=== PATIENT | male | born 1950 | race Caucasian/White ===

== ENCOUNTER 2020-06-16 07:55 | Outpatient (CLI) | payer OTHER, SELFPAY ==
[2020-06-16 08:08] LABS: Base Excess ABG -1.5 mmol/L (0-2); HCO3 ABG 22.5 mmol/L (23-29); Oxygen Content ABG 20.8 %vol (16.0-22.0); Oxygen Saturation ABG 97.1 % (95-97); Oxyhemoglobin 96.6 % (94-100); PCO2 ABG 35.9 mmHg (35-45); PO2 ABG 93.6 mmHg (75-85); Total Hemoglobin 15.3 g/dL; pH ABG 7.42 (7.35-7.45)
[2020-06-16 08:10] LABS: Device ROOM AIR; Modified Allen's Test Pass; Site Drawn RIGHT RADIAL
--- NOTE | 2020-06-16 12:50 | WPDPFTINT ---
PFT Interpretation PFT Interpretation: DOS: 06/16/2019 REQUESTING: Khang Brooke REASON FOR TESTING: shortness of breath PULMONARY FUNCTION TESTS Results are reliable and reproducible. Spirometry: FEV1 is 108%, 3.34 L. FVC is 107%. The FEV1/FVC ratio is 100%. RED13-45% is 99%. All values are normal. There is no change after bronchodilator administration. Lung volumes: TLC 105%. Slow vital capacity 107%. Residual volume 96%. RV/TLC is 37%, no air trapping. Airway resistance is 131%, mildly increased. Diffusion: DLCO 99%, normal. Flow volume loop: normal IMPRESSION: Normal spirometry, lung volumes, and diffusion; airway resistance is minimally increased; no change with bronchodilator. No explanation for the patient's shortness of breath based on this PFT. If clinically indicated and the patient does not have ischemia, consider methacholine challenge. Gianna Oliva MD
== END 2020-06-16 07:56 | disposition home or self-care (01) ==
PROVIDERS: PCP Family Medicine; Visit Provider Specialist
DX: R06.02 Shortness of breath (principal)
CPT/HCPCS: 36600; 82805; 94060; 94726; 94729

== ENCOUNTER 2020-07-12 08:58 | Outpatient (CLI) | payer OTHER, SELFPAY ==
--- NOTE | ~2020-07-12 | US_ITS ---
EXAMINATION: US arterial ankle brachial ind DATE: 07/12/2020 09:29 INDICATION: Claudication TECHNIQUE: Segmental pressures and plethysmographic and Doppler waveforms of the brachial and lower e xtremity arteries were obtained. COMPARISON: None. FINDINGS: Right and left brachial artery pressures of 135 mm Hg and 117 mm Hg, respectively, are concordant (no rmal difference <= 30 mmHg). The right ankle-brachial index (BHARATHI) is 1.07 (normal >= 0.9-1.0). The right great toe-brachial index (TBI) is not available (normal >= 0.65). Arterial Doppler waveforms are biphasic. The left BHARATHI is 1.04. The left TBI is not available. Arterial Doppler waveforms are biphasic. IMPRESSION: Normal BHARATHI bilaterally Reviewed, dictated and finalized at Location A. Reviewed, dictated and finalized at location B. 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
== END 2020-07-12 08:59 | disposition home or self-care (01) ==
PROVIDERS: PCP Family Medicine; Visit Provider Family Medicine
DX: I73.9 Peripheral vascular disease, unspecified (principal)
CPT/HCPCS: 93922

== ENCOUNTER 2020-08-03 08:41 | Outpatient (CLI) | payer OTHER, SELFPAY ==
--- NOTE | ~2020-08-03 | XR_ITS ---
EXAMINATION: XR lumbar spine 2-3V DATE: 08/03/2020 09:06 INDICATION: Bilateral leg pain. TECHNIQUE: 3 views of lumbar spine were obtained. COMPARISON: None. FINDINGS: There is 4 degrees levocurvature of thoracolumbar spine. Vertebral body heights and interve rtebral disc heights are normal. There are endplate osteophytes at multiple levels. 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 IMPRESSION: 1. Mild lumbar spondylosis. Reviewed, dictated and finalized at location A. IC RELATIONS COUNSELOR IMPRESSION: 1. Mild lumbar spondylosis.
== END 2020-08-03 08:42 | disposition home or self-care (01) ==
LOC: CHSIMG 08:44
PROVIDERS: PCP Family Medicine; Visit Provider Family Medicine
DX: M79.604 Pain in right leg (principal); M79.605 Pain in left leg
CPT/HCPCS: 72100

== ENCOUNTER 2021-02-18 08:27 | Outpatient (CLI) | payer OTHER, SELFPAY ==
--- NOTE | ~2021-02-18 | XR_ITS ---
XR chest 2V 02/18/2021 08:47 Indication: Acute bronchitis. Cough. Procedure: PA and lateral views of the chest Comparison: No prior studies for comparison. Findings: Status post median sternotomy for CABG. Heart size normal. No focal air space disease, pulm onary edema, pleural effusion or suspected pneumothorax. Impression: 1: No acute cardiopulmonary disease. Reviewed, dictated and finalized at location A. Impression: 1: No acute cardiopulmonary disease.
== END 2021-02-18 08:28 | disposition home or self-care (01) ==
LOC: CHSIMG 08:31
PROVIDERS: PCP Family Medicine; Visit Provider Physician Assistant
DX: J20.9 Acute bronchitis, unspecified (principal)
CPT/HCPCS: 71046

== ENCOUNTER 2021-06-04 10:17 | Outpatient (CLI) | payer OTHER, SELFPAY ==
[2021-06-04 11:37] LABS: Thyroid Stimulating Hormone 3.04 uIU/mL (0.36-3.74)
== END 2021-06-04 10:18 | disposition home or self-care (01) ==
LOC: CHSLAB 10:19
PROVIDERS: PCP Family Medicine; Visit Provider Internal Medicine Cardiovascular Disease
DX: R06.02 Shortness of breath (principal); E03.9 Hypothyroidism, unspecified
CPT/HCPCS: 36415; 84443

== ENCOUNTER 2021-06-17 12:01 | Outpatient (CLI) | payer OTHER, SELFPAY | END 2021-06-17 12:02 | disposition home or self-care (01) | LOC: CHSIMG 12:06 | PROVIDERS: PCP Family Medicine; Visit Provider Internal Medicine Cardiovascular Disease | DX: R06.02 Shortness of breath (principal) | CPT/HCPCS: 93306 ==

== ENCOUNTER 2021-07-05 10:18 | Outpatient (CLI) | payer OTHER, SELFPAY ==
--- NOTE | ~2021-07-05 | XR_ITS ---
EXAMINATION: XR chest 2V DATE: 07/05/2021 10:31 INDICATION: Dyspnea on exertion TECHNIQUE: PA and lateral views of the chest were obtained. COMPARISON: Chest radiograph dated 02/18/2021 FINDINGS: Mild biapical pleural-parenchymal scarring. No other airspace opacities, pulmonary edema, pleural eff usion or pneumothorax. The cardiomediastinal silhouette is normal. Median sternotomy wires, ostial ma rkers and mediastinal surgical clips consistent with prior coronary artery bypass grafting. IMPRESSION: 1. No acute cardiopulmonary disease. Reviewed, dictated and finalized at location A. CTOR DIVERSITY
== END 2021-07-05 10:19 | disposition home or self-care (01) ==
LOC: CHSIMG 10:21
PROVIDERS: PCP Family Medicine; Visit Provider Physician Assistant
DX: R06.00 Dyspnea, unspecified (principal)
CPT/HCPCS: 71046

== ENCOUNTER 2024-11-26 12:57 | Emergency (ER) | payer MEDICARE, OTHER, SELFPAY ==
--- NOTE | ~2024-11-26 | CT_ITS ---
EXAMINATION: CT brain wo con DATE: 11/26/2024 14:05 INDICATION: Head injury TECHNIQUE: Computed tomography (CT) of the head was performed without intravenous contrast. Sagittal and coronal reconstructions were performed. The mA was adjusted according to patient size. Iterative reconstruction technique was employed. The dose-length product was 681.00 mGy-cm. COMPARISON: None FINDINGS: No fracture. No acute intracranial hemorrhage, acute infarction or abnormal extra axial fluid collect ion. There is mild scattered white matter hypoattenuation consistent with chronic small vessel ischem ic disease. Ventricles are normal and symmetric. No mass/mass effect. Changes of bilateral intraocul ar lens replacement. The orbits, paranasal sinuses and mastoid air cells are normal. IMPRESSION: 1. No fracture or acute intracranial process. Reviewed, dictated and finalized at location A.
[2024-11-26 12:57] VITALS: BP 147/85; PULSE 69; RESP 18; TEMP 33.4; O2SAT 97
--- OUTSIDE RECORDS SUMMARY | 2024-11-26 13:06 | XMS_ITS | Encounter Summary ---
Author Name [facility] Organization [facility] [place] Address [address] [place] [address] Care Team Providers Care Lawnmower Mechanic Name Role Phone CHRISTOS GAMAAH Primary Care Provider ALEX Child Unavailable Unavailable Insurance Providers: All historical and current Section Date Range: From patient's date of to the date document was created. This section includes the names of all active insurance providers for the patient. Insurance Provider Type of Coverage Plan Name Start of Policy Coverage End of Policy Coverage Group Number Member ID Insurance Provider's Telephone Number Policy Higginbotham's Name Patient's Relationship to Policy Higginbotham [employer] [facility] (WNR) MEDICARE ADVANTAGE [facility] (WNR) May 28, 2023 [id number] CHRISTOPHE MONROE PATIENT [facility] ([id number]) PRESCRIPT ION [facility] Nov 25, 2014 [id number] GILBERT MONROE PATIENT [facility] (STIL 11/25/20) PREFERRED PROVIDER ORGANIZAT ION [place] Nov 25, 2020 [id number] GILBERT MONROE PATIENT [facility] ([place] 11/25/20) PREFERRED PROVIDER [place]GANIZAT [place] Nov 25, 2020 [id number] GILBERT MONROE PATIENT [employer] ([employer]) PRESCRIPT [place]ON [place] May 28, 2010 [id number] [phone] GILBERT MONROE PATIENT Selected Encounter This section includes the information on record at [place] for the Encounter. Date/Time Encounter Type Encounter Description Reason Provider Source Feb 22, 2024 08:00 AM OFFICE O/P EST LOW 20 MIN PODIATRY ICD-10-CM M21.41 Flat foot [pes planus] (acquired), right foot STACY JAMA [facility] Encounter Template Text not used by [place] Assessments - Encounter Diagnoses This section includes the primary and secondary diagnoses documented for the Encounter. Date/Time Primary/Secondary Diagnosis Diagnosis Name Provider Source Feb 22, 2024 08:14 AM PRIMARY Flat foot [pes planus] (acquired), right foot STACY JAMA [facility] Feb 22, 2024 08:14 AM SECONDARY Flat foot [pes planus] (acquired), left foot STACY JAMA [facility] Plan of Treatment: Future Appointments (+ 6 months) and Future Tests (+/- 45 days) The Plan of Treatment section includes future care activities for the patient from all [place] treatmentfacilities. This section includes future appointments and future orders which are active, pending or scheduled. Future Appointments This section includes appointments that were scheduled to occur 6 months from the date of the Encounter, up to a maximum of 20 appointments. The data comes from all [place] treatment facilities. Appointment Date/Time Appointment Type Appointme nt Facility Name May 13, 2024 08:15 AM AMBULATORY - MEDICINE [facility] May 16, 2024 09:15 AM AMBULATORY - MEDICINE [facility] Social History: Smoking Status (Most current) and Tobacco Use (All prior to encounter date) This section includes the most current, and the historical, smoking and tobacco- related health factors from the [place] facility where the Encounter took place. Current Smoking Status This section includes the most current smoking, or tobacco-related health factor, from the [place] facility where the Encounter took place. Date/Time Current Smoking Status Comment Enrrique ramirez Nov 06, 2023 08:15 AM [place]-TOBACCO QUIT 15 YRS OR MORE [facility] Tobacco Use History This section includes a history of the smoking, or tobacco-related health factors, that were collected on or before the date of the Encounter. The data comes from the [place] facility where the Encounter took place. Date/Time Smoking Status/Tobacco Use Comment F acility Nov 06, 2023 08:15 AM VA-TOBACCO QUIT 15 YRS OR MORE [facility] October 10, 2022 08:30 AM VA-TOBACCO NEVER USED [facility] Jul 08, 2021 09:30 AM VA-TOBACCO FORMER USER [facility] Jul 08, 2021 09:30 AM VA-TOBACCO QUIT 15 YRS OR MORE [facility] Encounter Notes: All associated encounter notes This section contains the clinical notes associated to the Encounter. Date/Time Encounter Note(s) Provider Source Feb 22, 2024 07:52 AM PODIATRY NOTE: LOCAL TITLE: PODIATRY NOTE STANDARD TITLE: PODIATRY NOTE DATE OF NOTE: FEB 22, 2024@07:52 ENTRY DATE: FEB 22, 2024@07:52:46 AUTHOR: STACY JAMA COSIGNER: URGENCY: STATUS: COMPLETED S: 73 year old nondiabetic male presents to clinic for evaluation of his current Rx MATERIAL CONTROL ASSOCIATE. His current Rx MATERIAL CONTROL ASSOCIATE are from 2021, and have been refurbished in the past. He denies any current foot pain or problems b/l. Pt. denies any changes to his medical history since his last clinic visit on 02-17-22. Pt. endorses hx of severe spinal stenosis L3 causing radiculopathy symptoms b/l LE (but not extending to the feet per pt) tx with steroid injections with significant relief per pt. Pt. was trialed on Rx Neurontin to address radiculopathy symptoms but developed vertigo SE, and had to d/c per pt. Pt. denies any recent history of trauma, redness, or swelling b/l. He denies numbness, burning, or tingling sensation b/l feet/ ankles. Pt. denies tobacco use. 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 Pt. denies any other foot problems b/l. 71 in [180.3 cm] (04/23/2023 08:28) 189.1 lb [85.77 kg] (12/04/2023 09:46) No changes to objective exam findings from last visit. O: Pt. ambulated into clinic wearing NB tennis shoes without assistance in NAD. He is alert and oriented x 3. Vasc: DP and PT pulses 2/4 b/l. CFT < 4 seconds x 10 digits. No edema or varicosities noted b/l. Absent digital hair growth noted b/l. Neuro: Protective sensation was intact to all sites tested per the 5.07 semmes jay monofilament b/l. Derm: Skin temp, texture, and turgor WNL b/l. Interdigital webspaces dry, clean, and intact b/l. No skin keratomas, breaks, or ulcers noted b/l. All toenails are present, normal, and trimmed per pt. No erythema, edema, or calor noted b/l. Ortho: Upon WB pes planus foot type noted b/l. + Equinus noted b/l. No pain noted on palpation of either foot or ankle b/l. No ecchymosis or bone pain noted b/l. No gross foot abnormalities noted b/l. Upon evaluation, pt's current MATERIAL CONTROL ASSOCIATE topcovers and crepe extrinsic RF posting require replacement --- but the remainder of the Rx MATERIAL CONTROL ASSOCIATE are in good condition to maintain stability and control. A: 1. Pes planus b/l P: 1. Exam 2. Consult prosthetics for refurbishment of his Rx MATERIAL CONTROL ASSOCIATE --- see consult for Rx details 3. Inspect feet daily for changes 4. RTC one year per order for Rx MATERIAL CONTROL ASSOCIATE eval per pt. request Low risk per A directive 1122 Pt. told any complications or new pedal complaints to go to the ER or triage clinic. /fer/ STACY JAMA DPM Staff Physician - Podiatry Signed: 02/22/2024 08:21 STACY JAMA [facility]
--- OUTSIDE RECORDS SUMMARY | 2024-11-26 13:06 | XMS_ITS | Continuity of Care Document ---
Author Organization [facility] Address [address] [facility] [address] [place] [address] Phone Care Team Providers Care Wire Basket Maker Name Role Phone Tunde Fernando MD, FACS Unavailable Unavailab le Advance Directives Directive Yes / No Effective Date File Name No Information Encounters Encounter Description Practice Location Reason(s) For Visit Diagnoses Date Provider Providers Copied on Encounter [facility], [address], [place], [place], [id number], [place] tel:[phone] [address] [place] Professional No Information [address]. [address], [address], [place], [place], [id number], [place]. tel:[phone] Family History Family Member Type Diagnosis Age At Onset No Information Payers Payer name Insurance type Covered democrat ID Authoriza tion(s) No Information Social History Type Description Quantity Date Captured Comments Sex Male Smoking Status No Information Chief Complaint And Reason For Visit No Information Reason For Referral Reason For Referral No Information History Of Present Illness Encounter Date Complaint History Of Prese nt Illness No Information Functional Status Date Functional Assessmen t No Information Instructions Date Instruction Additional Infor mation No Information Assessments Type Assessment Date No Information Patient Care Teams Name Effective Dates (start - stop) Status Members No Information
--- OUTSIDE RECORDS SUMMARY | 2024-11-26 13:06 | XMS_ITS | Clinical Summary ---
Author Organization [facility] Address [address] [place] [address] Care Team Providers Care Pelt Salter Name Role Phone Toni Stout MD Primary Care Provider [phone] Source Comments [facility],non-owned Affiliates and Associated Physician Practices is amultiple site organization consisting of ambulatory clinics and hospital sitesin [place], [place], [place] and [place]. This disclosure is being madepursuant to the Care Everywhere program and may not contain all information available regarding this patient. Last updated 18.[facility] Allergies No known active allergies Medications * Be aware that medications may not be up to date on this document. Alwaysverify current medications with the patient. LEVOTHYROXINE SODIUM PO Active METOPROLOL SUCCINATE ER PO Acti ve TAMSULOSIN HCL PO Ac tive Aspirin (ASPIR-81 PO) Active POTASSIUM BICARBONATE PO Activ e ROSUVASTATIN CALCIUM PO Active Active Problems Problem Noted Date Diagnosed Date Hyperlipidemia PTSD (post-traumatic stress disorder) Family History Medical History Relation Name Comments CAD (Coronary Artery Disease) Brother Cancer Brother prostate Cancer Mother breast Relation Name Status Comments Brother Mother Social History Tobacco Use Types Packs/Day Years Used Date Smoking Tobacco: Never Sex and Gender Information Value Date Recorded Sex Assigned at Not on file 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 Gender Identity Not on file Sexual Orientation Not on file Last Filed Vital Signs Vital Sign Reading Time Taken Comments Blood Pressure 118/60 10/21/2017 3:24 PM CDT Pulse 72 10/21/2017 3:24 PM CDT Temperature 37.3 C (99.1 F) 10/21/2017 3:24 PM CDT Respiratory Rate - - Oxygen Saturation - - Inhaled Oxygen Concentration - - Weight 93.9 kg (207 lb) 10/21/2017 3:24 PM CDT Height 182.9 cm (6') 10/21/2017 3:24 PM CDT Body Mass Index 28.07 10/21/2017 3:24 PM CDT Plan of Treatment Health Maintenance Due Date Last Done Comments HEPATITIS C SCREENING 06/30/1966 DTAP/TDAP/TD VACCINES (1 - Tdap) 1967 PNEUMOCOCCAL VACCINE 50+ (1 of 1 - PCV) 1998 ZOSTER VACCINE (1 of 2) 1998 SCREENING FOR DIABETES 10/21/2017 Respiratory Syncytial Virus (RSV) Vaccine Pt: or over 60 yrs (1 - 1-dose 75+ series) 2023 COVID-19 VACCINE ( - 2023-2 5 season) 2024 DEPRESSION SCREENING 05/28/2024 INFLUENZA VACCINE (Season Ended) 2025 HEPATITIS B VACCINE Aged Out No longe r eligible based on patient's age to complete this topic HIB VACCINE Aged Out No longer eligi ble based on patient's age to complete this topic HPV VACCINE Aged Out No longer eligi ble based on patient's age to complete this topic MENINGOCOCCAL (Group B) VACC INE SHARED DECISION-MAKING Aged Out No longer eligibl e based on patient's age to complete this topic MENINGOCOCCAL GROUPS A/C/Y/W VACCINE Aged Out No longer eligible b ased on patient's age to complete this topic Insurance [employer] Care Teams Pelt Salter Relationship Specialty Start Date End Date Toni Stout MD NPI: [id number] [place] [id number] PCP - General Family Medicine 10/21/17
--- OUTSIDE RECORDS SUMMARY | 2024-11-26 13:06 | XMS_ITS | Encounter Summary ---
Author Name [facility] [place] [facility] [place] Address [address] [place] [address] Care Team Providers Care Housekeeping Associate Name Role Phone LANETTE JOSE Primary Care Provider ALEX Child Unavailable Unavailable [...] Name Patient's Relationship to Policy [place] AETNA [facility] (WNR) MEDICARE ADVANTAGE [facility] (WN) May 28, 2023 [id number] CHRISTOPHE MONROE PATIENT CAREMARK ([id number]) PRESCRIPT ION [facility] Nov 25, 2014 [id number] GILBERT MONROE PATIENT [facility] (STIL 11/25/20) PREFERRED PROVIDER ORGANIZAT ION ([place]O) [place] Nov 25, 2020 [id number] GILBERT MONROE PATIENT [facility] (STIL 11/25/20) PREFERRED PROVIDER ORGANIZAT ION (PPO[place] Nov 25, 2020 [id number] GILBERT MONROE PATIENT [facility] ([facility]) PRESCRIPT ION [place] May 28, 2010 [id number] [phone] GILBERT MONROE PATIENT Selected Encounter This section includes the information on record at [place] for the Encounter. Date/Time Encounter Type Encounter Description Reason Provider Source May 13, 2024 08:15 AM OFFICE O/P EST MOD 30 MIN PRIMARY CARE/MEDICINE ICD-10-CM E78.5 Hyperlipidemia, unspecified JOSE GAMA IHGiovani Encounter Template Text not used by [place] Assessments - Encounter Diagnoses This section includes the primary and secondary diagnoses documented for the Encounter. Date/Time Primary/Secondary Diagnosis Diagnosis Name Provider Source May 13, 2024 01:04 PM PRIMARY Hyperlipidemia, unspecified [facility] May 13, 2024 01:04 PM SECONDARY Allergic rhinitis, unspecified [facility] May 13, 2024 01:04 PM SECONDARY Athscl heart disease of [place] coronary artery w/o ang pctrs [facility] May 13, 2024 01:04 PM SECONDARY Basal cell carcinoma of skin, unspecified [facility] May 13, 2024 01:04 PM SECONDARY Benign prostatic hyperplasia with lower urinary tract symp [facility] May 13, 2024 01:04 PM SECONDARY Contact with and exposure to other hazardous substances [facility] May 13, 2024 01:04 PM SECONDARY Dizziness and giddiness [facility] May 13, 2024 01:04 PM SECONDARY Elevated prostate specific antigen [PSA] [facility] May 13, 2024 01:04 PM SECONDARY Encounter for immunization POWER,SARA Pimentel [facility] May 13, 2024 01:04 PM SECONDARY Essential (primary) hypertension [facility] May 13, 2024 01:04 PM SECONDARY Fall (on) (from) other stairs and steps, initial encounter [facility] May 13, 2024 01:04 PM SECONDARY Hypothyroidism, unspecified DISSTIFFANY GIMENEZ [facility] May 13, 2024 01:04 PM SECONDARY Pain in leg, unspecified TIFFANY GUTIERREZ [facility] May 13, 2024 01:04 PM SECONDARY Post-traumatic stress disorder, unspecified TIFFANY GUTIERREZ [facility] May 13, 2024 01:04 PM SECONDARY Prediabetes TIFFANY GUTIERREZ [facility] May 13, 2024 01:04 PM SECONDARY Presence of aortocoronary bypass graft TIFFANY GUTIERREZ [facility] May 13, 2024 01:04 PM SECONDARY Shortness of breath TIFFANY GUTIERREZ [facility] May 13, 2024 01:04 PM SECONDARY Sleep apnea, unspecified TIFFANY GUTIERREZ [facility] May 13, 2024 01:04 PM SECONDARY Spinal stenosis, site unspecified [facility] Plan of Treatment: Future Appointments (+ 6 months) and Future Tests (+/- 45 days) The Plan of Treatment section includes future care activities for the patient from all [facility]. This section includes future appointments and future orders which are active, pending or scheduled. Future Appointments This section includes appointments that were scheduled to occur 6 months from the date of the Encounter, up to a maximum of 20 appointments. The data comes from all [facility] Appointment Date/Time Appointment Type Appointme nt Facility Name May 16, 2024 09:15 AM AMBULATORY - MEDICINE [facility] Nov 10, 2024 08:15 AM AMBULATORY - MEDICINE [facility] Lab Results: +/- 30 days of the encounter This section includes the Chemistry and Hematology Lab Results on record with [place] for the patient. Radiology Reports and Pathology Reports are provided separately, in subsequent sections. Lab Results This section contains the Chemistry/Hematology Results that were resulted 30 days before or 30 daysafter the date of the Encounter. Date/Time Source Result Type Result - Unit Interpretation Reference Range Specimen Type Comment May 13, 2024 10:08 AM [facility] HIV COMBO FOURTH GENERATION (STL) SERUM Speci men Type: SERUM No comment entered. Ordering Provider: SAMY GUTIERREZ Report Released Date/Time: May 13, 2024 09:16 AM Reporting Lab: [facility] [address] [facility] [address] Performing Lab: [facility] [address] [facility] [address] HIV COMBO FOURTH GENERATION (STL) Nonreactive Nonreactive May 13, 2024 10:08 AM [facility] PROST. SPECIFIC AG.(PB-STL) SERUM Specimen Ty pe: SERUM Comment: The listed sex of this patient may not be a typical indication for this test. Therefore, reference ranges or interpretive criteria listed may not be valid. Clinical correlation suggested. Ordering Provider: SAMY GUTIERREZ Report Released Date/Time: May 13, 2024 09:16 AM Reporting Lab: [facility] [address] [place] [address] Performing Lab: [facility] [address] [place] [address] PROST. SPECIFIC AG.(PB-STL) 2.172 ng/mL 0.000-4.000 May 13, 2024 10:08 AM [facility] VITAMIN D, 25-HYDROXY SERUM Specimen Type: SE RUM Comment: The listed sex of this patient may not be a typical indication for this test. Therefore, reference ranges or interpretive criteria listed may not be valid. Clinical correlation suggested. Ordering Provider: SAMY GUTIERREZ Report Released Date/Time: May 13, 2024 09:16 AM Reporting Lab: [facility] [address] [facility] [address] Performing Lab: [facility] [address] [place] [address] VITAMIN D, 25-HYDROXY 28.8 ng/mL L 30-96 May 13, 2024 10:08 AM [facility] B12 SERUM Specimen Type: SERUM Comment: The listed sex of this patient may not be a typical indication for this test. Therefore, reference ranges or interpretive criteria listed may not be valid. Clinical correlation suggested. Ordering Provider: SAMY GUTIERREZ Report Released Date/Time: May 13, 2024 09:16 AM Reporting Lab: [facility] [facility] [address] Performing Lab: [facility] [address] [facility] [address] B12 1778 pg/mL H 213-816 May 13, 2024 10:08 AM [facility] TSH W/ REFLEX FT4 (STL) PLASMA Specimen Type: PLASMA No comment entered. Ordering Provider: SAMY GUTIERREZ Report Released Date/Time: May 13, 2024 09:16 AM Reporting Lab: [facility] [facility] [address] Performing Lab: [facility] [address] [facility] [address] TSH 3.870 u[IU]/mL 0.470-5.000 May 13, 2024 10:08 AM [facility] HGA1C BLOOD Specimen Type: BLOOD No comment entered. Ordering Provider: SAMY GUTIERREZ Report Released Date/Time: May 13, 2024 09:16 AM Reporting Lab: [facility] [facility] [address] Performing Lab: [facility] [facility] [address] HGA1C 5.6 4.0-6.0 May 13, 2024 10:08 AM [facility] COMPREHENSIVE METABOLIC PANEL PLASMA Specimen Type: PLASMA Comment: No hemolysis noted. Ordering Provider: SAMY GUTIERREZ Report Released Date/Time: May 13, 2024 09:16 AM Reporting Lab: [facility] [facility] [address] Performing Lab: [facility] [facility] [address] CREATININE 1.23 mg/dL 0.70-1.30 UREA NITROGEN 17.8 mg/dL 9.0-25.0 GLUCOSE 109 mg/dL H 72-99 SODIUM 139 meq/L 136-145 POTASSIUM 5.5 meq/L H 3.5-5.0 CHLORIDE 106 meq/L 98-107 CARBON DIOXIDE 26 meq/L 22-31 CALCIUM 9.9 mg/dL 8.4-10.4 PROTEIN 6.7 g/dL 6.0-8.6 ALBUMIN 4.5 g/dL 3.4-5.0 TOTAL BILIRUBIN 0.6 mg/dL 0.2-1.2 ALKALINE PHOSPHATASE 84 U/L 40-150 AST/SGOT 20 U/L 5-34 ALT/SGPT 23 U/L 8-40 EGFR (CKD-EPI 2020) 61.22 >60 May 13, 2024 10:08 AM [facility] LIPID PANEL (STL) PLASMA Specimen Type: PLASM A Comment: No hemolysis noted. Ordering Provider: SAMY GUTIERREZ Report Released Date/Time: May 13, 2024 09:16 AM Reporting Lab: [facility] [facility] [address] Performing Lab: [facility] [facility] [address] CHOLESTEROL 173 mg/dL 0-200 TRIGLYCERIDE 92 mg/dL 0-150 CALCULATED LDL 113 mg/dL See Interp HDL(New) 42 mg/dL > 40 May 13, 2024 10:08 AM [facility] CBC BLOOD Specimen Type: BLOOD No comment entered. Ordering Provider: SAMY GUTIERREZ Report Released Date/Time: May 13, 2024 09:16 AM Reporting Lab: [facility] [facility] [address] Performing Lab: [facility] [facility] [address] WBC 5.2 10*3/uL 3.6-11.2 RBC 4.37 10*6/uL 4.10-5.70 HGB 15.1 g/dL 13.1-16.8 HCT 42.8 38.2-48.4 MCV 97.9 fL 80.0-100.0 MCH 34.6 pg H 27.0-34.0 MCHC 35.3 g/dL 33.0-36.0 PLT 191 10*3/uL 150-400 MPV 9.3 fL 7.5-11.2 RDW 11.2 L 11.8-15.1 LYMPHOCYTES, AUTO % 28 MONOCYTES, AUTO % 8 NEUTROPHILS, AUTO % 61 EOSINOPHILS, AUTO % 3 BASOPHILS, AUTO % 0 LYMPHOCYTES, ABSOLUTE 1.42 10*3/uL 0.77- 4.50 MONOCYTES, ABSOLUTE 0.39 10*3/uL 0.19-0. 80 NEUTROPHILS, ABSOLUTE 3.15 10*3/uL 2.10- 8.00 EOSINOPHILS, ABSOLUTE 0.17 10*3/uL 0.00- 0.60 BASOPHILS, ABSOLUTE 0.02 10*3/uL 0.00-0. 20 Vital Signs: All taken on the encounter date This section contains inpatient and outpatient Vital Signs collected on the date of the Encounter. Date/Time Temperature Pulse Blood Pressure Respiratory Rate SP02 Pain Height Weight Body Mass Index Source May 13, 2024 08:26 AM 98.1 66 135/74 16 96 2 203 28 [facility] Immunizations: All administered on the encounter date This section contains immunizations associated to the Encounter. Immunization Series Date Issued Administered By Site Reaction Lot Number CVX Code Drug Dental Manager Comment(s) Source PNEUMOCOCCAL POLYSACCHARID E PPV23 May 13, 2024 SARA SCHNEIDER RIGHT DELTO ID [id number] [employer] ADMINISTERE D AT [facility] TDAP May 13, 2024 SARA SCHNEIDER LEFT DELTO ID [id number] [employer] ADMINISTERE D AT [facility] Social History: Smoking Status (Most current) and Tobacco Use (All prior to encounter date) This section includes the most current, and the historical, smoking and tobacco- related health factors from the [facility] where the Encounter took place. Current Smoking Status This section includes the most current smoking, or tobacco-related health factor, from the [place] facility where the Encounter took place. Date/Time Current Smoking Status Comment Facil james Nov 06, 2023 08:15 AM [place]-TOBACCO QUIT 15 YRS OR MORE [facility] Tobacco Use History This section includes a history of the smoking, or tobacco-related health factors, that were collected on or before the date of the Encounter. The data comes from the [place] facility where the Encounter took place. Date/Time Smoking Status/Tobacco Use Comment F acility Nov 06, 2023 08:15 AM [place]-TO[place]AC[place] QUIT 15 YRS OR MORE [facility] October 10, 2022 08:30 AM [place]-TOBACCO NEVER USED [facility] Jul 08, 2021 09:30 AM [place]-TOBACCO FORMER USER [facility] Jul 08, 2021 09:30 AM [place]-TO[place]ACCO QUIT 15 YRS OR MORE [facility] Encounter Notes: All associated encounter notes This section contains the clinical notes associated to the Encounter. Date/Time Encounter Note(s) Provider Source May 13, 2024 03:58 PM PHYSICIAN LETTERS: LOCAL TITLE: TEST RESULT GENERAL LETTER STL STANDARD TITLE: PHYSICIAN LETTERS DATE OF NOTE: MAY 13, 2024@15:58 ENTRY DATE: MAY 13, 2024@15:58:54 AUTHOR: SAMY GUTIERREZ EXP COSIGNER: URGENCY: STATUS: COMPLETED [facility] [address] [place] [address] MAY 13, 2024 JEAN CLAUDE MONROE [address], [place] [address] Dear Jean Claude Monroe, I would like to update you on your recent test results. LIPID PROFILE - High cholesterol and triglycerides (lipids) are risk factors for heart disease. Your cholesterol should fall between 140 and 200, and your triglycerides levels should be less than or equal to 150. HDL is the good cholesterol and should ideally be greater than 40. LDL is the bad cholesterol and optimal levels should be less than 100 (near optimal is between 100 and 129). TRIGLYCERIDE 92 mg/dL 05/13/2024 10:08 CHOLESTEROL 173 mg/dL 05/13/2024 10:08 HDL(New) 42 mg/dL 05/13/2024 10:08 CALCULATED LDL 113 mg/dL 05/13/2024 10:08 No DIRECT LDL EO data found These readings are within normal limits. HEMOGLOBIN A1C - Gives us information about your diabetes (sugar or glucose) control over the past 3 months. Your target is to keep your A1C below 7 %. HGA1C 5.6 % 05/13/2024 10:08 These results are abnormal. You have prediabetes. This number is around what you normally run. Continue your current diet and exercise plan. CBC - A complete blood count (CBC) gives important information about the kinds and numbers of cells in the blood, especially red blood cells, white blood cells, and platelets. HGB 15.1 g/dL 05/13/2024 10:08 HEMATOCRIT 42.8 % (05/13/24 10:08) PLT 191 10*3/uL 05/13/2024 10:08 WHITE BLOOD COUNT 5.2 10*3/uL (05/13/24 10:08) These readings are within normal limits. B12 - Helps maintain healthy nerve cells, red blood cells, and is also needed to make DNA. B12 1778 H pg/mL 05/13/2024 10:08 These results are abnormal. Your B12 is elevated. Please stop the additonal B12 supplement (Cyanocobalamin) as discussed on the phone. CHEM 7 - This is important information about the current status of your kidneys, liver, and electrolyte and acid/base balance as well as of your blood sugar and blood proteins. SODIUM 139 mEq/L 05/13/2024 10:08 POTASSIUM 5.5 H mEq/L 05/13/2024 10:08 CHLORIDE 106 mEq/L 05/13/2024 10:08 UREA NITROGEN 17.8 mg/dL 05/13/2024 10:08 CREATININE 1.23 mg/dL 05/13/2024 10:08 CALCIUM 9.9 mg/dL 05/13/2024 10:08 CARBON DIOXIDE 26 mEq/L 05/13/2024 10:08 GLUCOSE 109 H mg/dL 05/13/2024 10:08 EGFR (CKD-EPI 2020) 61.22 05/13/2024 10:08 These results are abnormal. Your Potassium is elevated. Please come in and recheck the lab in 2 weeks as discussed on the phone. LIVER FUNCTION PANEL - These are tests for liver function: PROTEIN 6.7 g/dL 05/13/2024 10:08 ALBUMIN 4.5 g/dL 05/13/2024 10:08 TOTAL BILIRUBIN 0.6 mg/dL 05/13/2024 10:08 ALKALINE PHOSPHATASE 84 U/L 05/13/2024 10:08 AST/SGOT 20 U/L 05/13/2024 10:08 ALT/SGPT 23 U/L 05/13/2024 10:08 These readings are within normal limits. PSA - Prostate-specific antigen is a protein produced by cells of the prostate gland. The PSA test measures the level of PSA in the blood. PSA PROST. SPECIFIC AG.(PB-STL) 2.172 ng/mL 05/13/2024 10:08 These readings are within normal limits. TSH - Thyroid-stimulating hormone (also known as TSH or thyrotropin) is a peptide hormone synthesized and secreted by thyrotrope cells in the anterior pituitary gland, which regulates the endocrine function of the thyroid gland. TSH TSH 3.870 uIU/mL 05/13/2024 10:08 These readings are within normal limits. VITAMIN D - Helps promote the proper utilization of calcium and phosphorus, thereby producing proper bone maintenance. VITAMIN D, 25-HYDROXY 28.8 L ng/mL 05/13/2024 10:08 These readings are within normal limits. HIV - Human immunodeficiency virus is a condition in humans in which the immune system begins to fail, leading to life-threatening opportunistic infections. HIV FOURTH GENERATION: Collection DT Specimen Test Name Result Units Ref Range 05/13/2024 10:08 SERUM HIV Combo Nonreactive S/CO Ref: Nonreactive These readings are within normal limits. FUTURE APPOINTMENTS: 05/16/2024 09:15 [facility] 11/10/2024 08:15 [facility]-PACT E BOAT WRAPPER RESIDENT 1 12/02/2024 10:00 [facility] 02/20/2025 08:00 [facility] Sincerely, SAMY GUTIERREZ, DNP, RESEARCH FOOD TECHNOLOGIST-C, WASH TUB MACHINE OPERATOR NURSE PRACTITIONER RESIDENT JEAN CLAUDE MONROE THOM[facility] May 13, 2024 08:37 AM PRIMARY CARE NOTE: LOCAL TITLE: PRIMARY CARE PROVIDER ESTABLISHED VISIT ST STANDARD TITLE: PRIMARY CARE NOTE DATE OF NOTE: MAY 13, 2024@08:37 ENTRY DATE: MAY 13, 2024@08:37:46 AUTHOR: SAMY GUTIERREZ EXP COSIGNER: JOSE GAMA URGENCY: STATUS: COMPLETED PRIMARY CARE PROVIDER ESTABLISHED VISIT ST Has ADDENDA ESTABLISHED PATIENT [id number]: REASON FOR VISIT/CHIEF COMPLAINT: Regularly scheduled PCP follow up HPI: 73 y/o WM in the office for care and management of chronic conditions Hosp/sx/ED/UC visits: Current concerns: NON-VA PROVIDERS: Prvt Broth Mixer Falls: None 1. CAD: Controlled/stable, no acute concerns. -(2020) s/p LHC w/ patent grafts, (2013) s/p CABG x5 -(2021) TTE - EF 55-60%, trace MR -NTG PRN -asa 81mg daily, atorvastatin 40mg daily, ranolazine 500mg bid -F/B PRVT & [facility] CARDs 2. Chronic MORA: Controlled/stable, no acute concerns. -Taking Albuterol PRN -Sometimes coughs, then gags, usually when he forgets the inhaler -Happens more when hot, but very minimally 3. HLD, LDL goal <100; at goal. TRIGLYCERIDE 129 mg/dL 11/06/2023 09:27 CHOLESTEROL 149 mg/dL 11/06/2023 09:27 HDL(New) 46 mg/dL 11/06/2023 09:27 CALCULATED LDL 77 mg/dL 11/06/2023 09:27 -Atorvastatin 40 mg (denies myalgias) -ASCVD: 28.9% -Trying diet and exercise, fell off the wagon recently, but trying to get back to normal 4. HTN, goal BP < 140/90; Controlled/stable, no acute concerns. -Amlodipine 2.5mg daily -Trying diet and exercise, fell off the wagon recently, but trying to get back to normal 5. prediabetes HGA1C 5.7 % 04/23/2023 09:54 HGA1C 5.8 % 10/14/2021 09:55 HGA1C 6.0 % 07/08/2021 13:12 6. hypothyroidism: Controlled/stable, no acute concerns. -Last TSH: (03/2023) WNL -Levothyroxine 25 MCG. 7. AR: not at goal. -Taking Loratadine, IPRATROPIUM BR 0.03% nasal spray TID -Changing airfilter Q3 months 8. VINAY: Controlled/stable, no acute concerns. -Last Sleep Study - (2021)- mild sleep apnea, AHI<5; Did not qualify for CPAP. -No c/o insominia or sleep disturbance -No spousal c/o snoring 9. BPH/Elevated PSA: Controlled/stable, no acute concerns. -PSA: PROST. SPECIFIC AG.(PB-STL) 2.751 ng/mL 04/23/2023 09:54 -Stopped Tamsulosin, taking Flax seed -C/O latchkey incontinence intermittently at times 10. PTSD -Controlled/stable, no acute concerns. 11. lower limb pain/spinal stenosis: ongoing but stable. - Uses compression socks, Lumbar YANLEI (minimal effect), PT/CHIRO (declines), custom orthotic inserts (helps tremendously) -Lidocaine patch prn, diclofenac gel prn -(2021) BHARATHI -WNL 12. hx of falls: Controlled/stable, no acute concerns -No falls, but catching himself before he falls 6X in 6 months -Intermittent cane use 13. vertigo/L esotropia: Controlled/stable, no acute concerns. -Usually takes his time doing things, resolves fairly quickly -Prism glasses prn, AD (cane) 14. BCC of skin: ongoing. -[facility], last visit November 18 -Endorses no new lesions SOURCE(S) OF HISTORY: Patient [facility] records reviewed and summarized PAST MEDICAL HISTORY: 1) Posttraumatic stress disorder 2) Hyperlipidemia (SCT [id number]) 3) History of polyp of colon 4) CAD - Coronary Artery Disease (SCT 63952115) 5) Hypothyroidism 6) Spinal stenosis 7) Pain in lower limb 8) History of coronary artery bypass grafting comment: CABG X5 2013 9) Dyspnea on exertion 10) Benign prostatic hyperplasia 11) Allergic rhinitis 12) Prediabetes ([facility] [id number]) 13) Vertigo 14) HTN - Hypertension ([facility] [id number]) 15) Basal cell carcinoma of skin 16) Fall 17) Raised prostate specific antigen 18) Sleep apnea 19) Exposure to potentially hazardous substance FAMILY HISTORY: SOCIAL HISTORY: NICOTINE: No data available ETOH: ILLICIT DRUGS: 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 Handwritten corrections, additions and/or deletions were made to the list. Corrected Outpatient Medication List was provided to the patient/caregiver. Active Outpatient Medications (including Supplies): Active Outpatient Medications Status 1) ALBUTEROL 90MCG (CFC-F) 200D ORAL INHL INHALE 2 PUFFS ORAL ACTIVE INHALATION FOUR TIMES A DAY NEEDED SHAKE WELL. RINSE MOUTHPIECE FREQUENTLY TO PREVENT CLOGGING. USE 20 MINUTES PRIOR TO EXERTION. Indication: FOR EXERCISE-INDUCED BRONCHOSPASM 2) AMLODIPINE BESYLATE 2.5MG TAB TAKE ONE TABLET BY MOUTH ONCE ACTIVE A DAY FOR HEART/BLOOD PRESSURE 3) ATORVASTATIN CALCIUM 80MG TAB TAKE ONE-HALF TABLET BY MOUTH ACTIVE EVERY EVENING TO LOWER CHOLESTEROL 4) IPRATROPIUM BR 0.03% NASAL SPRAY USE 2 SPRAYS INTO ACTIVE NOSTRIL(S) THREE TIMES A DAY FOR ALLERGIES/NASAL SYMPTOMS. 5) LEVOTHYROXINE NA (SYNTHROID) 25MCG TAB TAKE ONE TABLET BY ACTIVE MOUTH EVERY MORNING BEFORE A MEAL FOR THYROID. TAKE 30 MINUTES BEFORE FOOD. TAKE SEPARATELY FROM ALL OTHER MEDICATIONS. 6) LIDOCAINE 5% PATCH APPLY 1 PATCH TO SKIN SITE ONCE A DAY ACTIVE APPLY PATCH AND PRESS FIRMLY FOR 10-15 SECONDS. KEEP ON FOR 12 HOURS THEN REMOVE PATCH FOR 12 HOURS. Indication: FOR LOCAL ANESTHESIA 7) LORATADINE 10MG TAB TAKE ONE TABLET BY MOUTH ONCE A DAY ON ACTIVE EMPTY STOMACH Indication: FOR ALLERGIC RHINITIS 8) NITROGLYCERIN 0.4MG SL TAB DISSOLVE ONE TABLET UNDER THE ACTIVE TONGUE ONE-TIME NEEDED FOR CHEST PAIN; IF NO IMPROVEMENT AFTER FIRST DOSE CALL 9-1-1. MAY TAKE 2 ADDITIONAL DOSES, 5 MINUTES APART 9) RANOLAZINE 500MG SA TAB TAKE ONE TABLET BY MOUTH TWICE A DAY ACTIVE FOR HEART. *SWALLOW WHOLE- DO NOT CRUSH,BREAK OR CHEW* Active Non-VA Medications Status 1) Non-VA ASCORBIC ACID 500MG TAB 500MG BY MOUTH ONCE A DAY ACTIVE 2) Non-VA CYANOCOBALAMIN 1000MCG TAB 2000MCG BY MOUTH ONCE A ACTIVE DAY 3) Non-VA MAGNESIUM GLUCONATE 500MG TAB 500MG BY MOUTH ACTIVE 4) Non-VA MULTIVITAMIN/MINERAL ANTIOXIDANT CAP/TAB 1 CAP/TAB BY ACTIVE MOUTH ONCE A DAY 13 Total Medications DATA REVIEW: HGA1C 5.7 % 04/23/2023 09:54 Lipid Panel: TRIGLYCERIDE 129 mg/dL 11/06/2023 09:27 CHOLESTEROL 149 mg/dL 11/06/2023 09:27 HDL(New) 46 mg/dL 11/06/2023 09:27 CALCULATED LDL 77 mg/dL 11/06/2023 09:27 CMP: SODIUM 140 mEq/L 11/06/2023 09:27 POTASSIUM 4.3 mEq/L 11/06/2023 09:27 CHLORIDE 105 mEq/L 11/06/2023 09:27 UREA NITROGEN 10.6 mg/dL 11/06/2023 09:27 CREATININE 1.07 mg/dL 11/06/2023 09:27 CALCIUM 9.1 mg/dL 11/06/2023 09:27 PROTEIN 7.5 g/dL 04/23/2023 09:54 ALBUMIN 4.7 g/dL 11/06/2023 09:27 ALKALINE PHOSPHATASE 95 U/L 04/23/2023 09:54 ALT/SGPT 25 U/L 04/23/2023 09:54 AST/SGOT 18 U/L 04/23/2023 09:54 TOTAL BILIRUBIN 0.7 mg/dL 04/23/2023 09:54 CARBON DIOXIDE 26 mEq/L 11/06/2023 09:27 GLUCOSE 111 H mg/dL 11/06/2023 09:27 EGFR (CKD-EPI 2020) 72.37 11/06/2023 09:27 CBC: WBC 6.1 10*3/uL 04/23/2023 09:54 RBC 4.44 10*6/uL 04/23/2023 09:54 HGB 15.0 g/dL 04/23/2023 09:54 HCT 43.2 % 04/23/2023 09:54 MCV 97.3 fL 04/23/2023 09:54 MCH 33.8 pg 04/23/2023 09:54 MCHC 34.7 g/dL 04/23/2023 09:54 RDW 11.5 L % 04/23/2023 09:54 PLT 183 10*3/uL 04/23/2023 09:54 MPV 9.8 fL 04/23/2023 09:54 NEUTROPHILS, AUTO % 61 % 04/23/2023 09:54 LYMPHOCYTES, AUTO % 29 % 04/23/2023 09:54 MONOCYTES, AUTO % 7 % 04/23/2023 09:54 EOSINOPHILS, AUTO % 2 % 04/23/2023 09:54 BASOPHILS, AUTO % 0 % 04/23/2023 09:54 NEUTROPHILS, ABSOLUTE 3.72 10*3/uL 04/23/2023 09:54 LYMPHOCYTES, ABSOLUTE 1.73 10*3/uL 04/23/2023 09:54 MONOCYTES, ABSOLUTE 0.44 10*3/uL 04/23/2023 09:54 EOSINOPHILS, ABSOLUTE 0.14 10*3/uL 04/23/2023 09:54 BASOPHILS, ABSOLUTE 0.02 10*3/uL 04/23/2023 09:54 PSA: PROST. SPECIFIC AG.(PB-STL) 2.751 ng/mL 04/23/2023 09:54 Result: Acceptable Follow-up Action: Re check prior to next visit. Data results reviewed with patient and/or caregiver. REVIEW OF SYSTEMS: All systems reviewed and otherwise negative unless noted in HPI REVIEW OF SYSTEMS: General: Denies fever or chills, weight loss or weight gain. Eyes: Denies blurry or double vision. Ears, Nose, Mouth, Throat: Denies hearing loss, nasal drainage or sore throat. Denies dizziness. Endo: Denies heat or cold intolerance, polydipsia, polyuria, or polyphagia. Cardiovascular: Denies CP, palpitations, or dizziness. Respiratory: Denies cough or SOB. ABD/GI: Denies abd pain, N/V/D, constipation. Musculoskeletal/Extremities : Denies pain. Denies edema. /PARAKEET RAISER: Denies frequency, hesitancy, urgency, or hematuria. Psych: Denies depression, anxiety, insomnia, SI/HI. Neuro: Denies DOBBS, tremors, neuropathy, or seizures. Skin: Denies rashes, skin lesions. VITALS Temperature: 98.1 F [36.7 C] (05/13/2024 08:26) BP: 135/74 (05/13/2024 08:26) Pulse: 66 (05/13/2024 08:26) Resp: 16 (05/13/2024 08:26) PulsOx: 96% (05/13/2024 08:26) Pain: 2 (05/13/2024 08:26) Weight: Measurement DT WEIGHT LB(KG)[BMI] 05/13/2024 08:26 203(92.08)[28*] 12/04/2023 09:46 189.1(85.77)[26] 11/06/2023 08:29 187.7(85.14)[26] PHYSICAL EXAM Gen: Patient pleasant, appears adequately nourished, appropriately dressed, well-groomed HEENT: Normocephalic; PERRLA, EOM, sclera white, cornea clear, conjunctiva pink. TM pearly rodrigez, + light reflex. Throat without erythema or exudate Neck: supple, no lymphadenopathy, no thyroidmegaly, or carotid bruits Lungs: Lungs CTA, normal RR, no increased WOB noted Heart: RRR S1S2-m/r/g Abdomen: soft, non-tender, no hepatosplenomegaly, BS pos X4 Neuro: A+OX4, no focal deficits, ambulates with steady gait : deferred Psych: good affect, denies si/hi Ext: no edema, + pedal pulses Skin: warm and dry, normal color for race, no rashes or skin lesions. ASSESSMENT/PLAN: LABS: CBC, CMP, Lipid, A1C, TSH, Vit D, B12, PSA, HIV 1. CAD: Controlled/stable, no acute concerns. -(2020) s/p LHC w/ patent grafts, (2013) s/p CABG x5 -(2021) TTE - EF 55-60%, trace MR -Continue NTG PRN -Cotninue asa 81mg daily, atorvastatin 40mg daily, ranolazine 500mg bid -F/B PRVT & [facility] CARDs -Continue current management, F/U in office if needed 2. Chronic MORA: Controlled/stable, no acute concerns. -Cotninue Albuterol PRN -Sometimes coughs, then gags, usually when he forgets the inhaler -Happens more when hot, but very minimally -Continue current management, F/U in office if needed 3. HLD, LDL goal <100; at goal. TRIGLYCERIDE 129 mg/dL 11/06/2023 09:27 CHOLESTEROL 149 mg/dL 11/06/2023 09:27 HDL(New) 46 mg/dL 11/06/2023 09:27 CALCULATED LDL 77 mg/dL 11/06/2023 09:27 -Continue Atorvastatin 40 mg (denies myalgias) -ASCVD: 28.9% -Trying diet and exercise, fell off the wagon recently, but trying to get back to normal -Discussed getting back on his diet and exercise 150 mins per week 4. HTN, goal BP < 140/90; Controlled/stable, no acute concerns. -Cotninue Amlodipine 2.5mg daily -Trying diet and exercise, fell off the wagon recently, but trying to get back to normal -Discussed getting back on his diet and exercise 150 mins per week 5. prediabetes HGA1C 5.7 % 04/23/2023 09:54 HGA1C 5.8 % 10/14/2021 09:55 HGA1C 6.0 % 07/08/2021 13:12 -A1C ordered -Discussed getting back on his diet and exercise 150 mins per week 6. hypothyroidism: Controlled/stable, no acute concerns. -Last TSH: (03/2023) WNL -Levothyroxine 25 MCG. 7. AR: not at goal. -Continue Loratadine, IPRATROPIUM BR 0.03% nasal spray TID -Changing airfilter Q3 months --Discussed use of allergen air filter 8. VINAY: Controlled/stable, no acute concerns. -Last Sleep Study - (2021)- mild sleep apnea, AHI<5; Did not qualify for CPAP. -No c/o insominia or sleep disturbance -No spousal c/o snoring -Continue current management, F/U in office if needed 9. BPH/Elevated PSA: Controlled/stable, no acute concerns. -PSA: PROST. SPECIFIC AG.(PB-STL) 2.751 ng/mL 04/23/2023 09:54 -Stopped Tamsulosin, taking Flax seed -C/O latchkey incontinence intermittently at times --Discussed toileting hygiene, using the restroom prior to leaving a location regardless of need -Decline adult diaper usage -Continue current management, F/U in office if needed 10. PTSD -Controlled/stable, no acute concerns -Pt declines MH support, states it is controlled on his own -Pt usually speaks w/ son 11. lower limb pain/spinal stenosis: ongoing but stable. - Uses compression socks, Lumbar YANELI (minimal effect), PT/CHIRO (declines), custom orthotic inserts (helps tremendously) -Lidocaine patch prn, diclofenac gel prn -(2021) BHARATHI -WNL -Continue current management, F/U in office if needed 12. hx of falls: Controlled/stable, no acute concerns -No falls, but catching himself before he falls 6X in 6 months -Intermittent cane use --Discussed using cane all the time and use of hand rails if available 13. vertigo/L esotropia: Controlled/stable, no acute concerns. -Usually takes his time doing things, resolves fairly quickly -Prism glasses prn, AD (cane) -Continue current management, F/U in office if needed 14. BCC of skin: ongoing. -[facility], last visit November 18 -Endorses no new lesions -F/U w/ Derm as scheduled -Use of sunscreen and long sleeves PREVENTION & SCREENING: Obtained Flu, COVID, PNA, TDaP Colonoscopy: 2022, due 2027 AAA: Date Procedure CPT Status Case # 06/05/2022 ABD AORTA ([facility]) [id number] Verified 88 NORMAL CALIBER ABDOMINAL AORTA WITH NO FOCAL ANEURYSM No Impressions found LDCT: N/A PSA: Collection DT Specimen Test Name Result Units Ref Range 04/23/2023 09:54 SERUM PSA 2.751 ng/mL 0.000 - 4.000 07/08/2021 12:34 SERUM PSA 3.436 ng/mL 0.000 - 4.000 09/21/2009 10:32 SERUM PSA 1.078 ng/ml 0 - 4 Immunizations ADMINISTERED Immunization Series Date Facility Reaction Info COVID-19 ([employer]), MRNA, LNP-S, * 1 04/11/2022 [facility]* <C> COVID-19 ([facility]), MRNA, LNP-S, * 3 05/09/2021 [facility] COVID-19 ([employer]), MRNA, LNP-S, * 2 [facility] COVID-19 ([facility]), MRNA, LNP-S, * 1 07/16/2020 [facility] COVID-19 ([facility]), MRNA, LNP-S, * 3 10/14/2021 [facility] <C> COVID-19 ([facility]), MRNA, LNP-S, * 1 04/23/2023 [facility] INFLUENZA, HIGH-DOSE, QUADRIVALE* C 02/23/2023 [facility] INFLUENZA, HIGH-DOSE, TRIVALENT,* C 02/22/2024 [facility]* INFLUENZA, UNSPECIFIED FORMULATI* 02/02/2022 [facility]* INFLUENZA, UNSPECIFIED FORMULATI* 02/10/2021 [facility]* INFLUENZA, UNSPECIFIED FORMULATI* 05/28/2015 [facility] * INFLUENZA, UNSPECIFIED FORMULATI* 04/05/2012 [facility] INFLUENZA, UNSPECIFIED FORMULATI* Private P* NOVEL [id number], ALL FOR* Visiting * PNEUMOCOCCAL POLYSACCHARIDE PPV23 2013 PCP TDAP Private P* ZOSTER RECOMBINANT 2 06/04/2020 [facility]* <C> ZOSTER RECOMBINANT 1 03/26/2020 [facility]* <C> CONTRAINDICATED No data available REFUSED ======= Immunization Date Facility Info PNEUMOCOCCAL CONJUGATE, UNSPECIF* 04/23/2023 [facility]* <I> TDAP 11/06/2023 [facility]* <I> TDAP 04/23/2023 [facility]* <I> <C> See the Detailed Immunizations Health Summary Component[DIM] for Comments <I> See the Detailed Immunizations Health Summary Component[DIM] for Additional Information * Value is truncated; see the Detailed Immunizations Health Summary Component[DIM] for complete text RETURN TO CLINIC: Return to Clinic order placed SUMMARY STATEMENT: Plan of care has been discussed with including expected therapeutic benefits and potential side effects of prescribed medication and treatments. Hector verbalizes understanding and is in agreement with the plan of care. Patient was instructed to keep all scheduled appointments and contact medical geneticist for any additional problems. THE SUPERVISING PHYSICIAN FOR THIS PATIENT ENCOUNTER IS KENAN Ramirez Sexual Orientation - CP,L,N,P,PH,PS,S,U: The patient thinks of their sexual orientation as: Straight or Heterosexual HIV Screening (Routine): Patient has given verbal consent for HIV antibody testing, and written educational materials have been provided. An order for an HIV Antibody test has been entered - see orders tab. Tdap Immunization - L,N,P,PH,U: See orders Pneumococcal Conjugate Vaccine (PCV15/PCV20) - L,N,P,PH,U: See orders. /alessia GUTIERREZ DNP, AMBER, ASHLEIGH NURSE PRACTITIONER RESIDENT Signed: 05/13/2024 12:13 /fer/ KENAN Romero NURSE PRACTITIONER Cosigned: 05/13/2024 13:06 05/13/2024 ADDENDUM STATUS: COMPLETED I have seen this with the BOAT WRAPPER resident. I have participated in developing the plan of care, and reviewed medications, lab, and any radiology reports. The concurs with the plan of care. /KENAN Simpson NURSE PRACTITIONER Signed: 05/13/2024 13:06 05/13/2024 ADDENDUM STATUS: COMPLETED Contacted pt via phone, 2 identifiers obtained per policy, regarding his Hyperkalemia and Hypercobalaminemia. Pt asymptomatic, denies any complaints in relation to Hyperkalemia. Discussed pt to come back in 1-2 weeks to obtain repeat sample. Discussed symptoms to watch for w/ Hyperkalemia. Regarding the Hypercobalaminemia, discussed w/ pt need to discontinue additional B12 supplementation in addition to use usual multivitamin. Pt to discontinue that medication at this time. /alessia GUTIERREZ DNP, AMBER, ASHLEIGH NURSE PRACTITIONER RESIDENT Signed: 05/13/2024 15:57 /fer/ KENAN Romero NURSE PRACTITIONER Cosigned: 05/13/2024 16:05 05/13/2024 ADDENDUM STATUS: COMPLETED I have discussed this with the BOAT WRAPPER resident. I have participated in developing the plan of care, and reviewed medications, labs, and any radiology reports. The concurs with the plan of care. /KENAN Simpson NURSE PRACTITIONER Signed: 05/13/2024 16:06 SAMY GUTIERREZ [facility] May 13, 2024 08:27 AM NURSING NOTE: LOCAL TITLE: V15 PACT FACE TO FACE NOTE STL STANDARD TITLE: NURSING NOTE DATE OF NOTE: MAY 13, 2024@08:27 ENTRY DATE: MAY 13, 2024@08:27:51 AUTHOR: SARA SCHNEIDER EXP COSIGNER: URGENCY: STATUS: COMPLETED V15 PACT FACE TO FACE NOTE STL Has ADDENDA Provider Visit: Patient Identifiers : Full Name Date of Reason for visit: Established Follow-Up routine visit Mode of Arrival: Ambulatory Allergy Review: Patient has answered NKA Allergy list reviewed and remains current. Recent Vital Signs: Temperature: 98.1 F [36.7 C] (05/13/2024 08:26) Pulse: 66 (05/13/2024 08:26) Respiration: 16 (05/13/2024 08:26) B/P: 135/74 (05/13/2024 08:26) Pain: 2 (05/13/2024 08:26) Wt: 203 lb [92.08 kg] (05/13/2024 08:26) Ht: 71 in [180.3 cm] (04/23/2023 08:28) BMI: 28.4 POX: 96% (05/13/2024 08:26) PERSONAL HEALTH INVENTORY Notes: No data available for PHI note titles PERSONAL HEALTH INVENTORY - MAP: No data available for PHI MAP What matters most to you in your life right now? -- 's Response: my family, God, Health Would you like to discuss any personal problem, family problem, alcohol use, drug use, or a mental or emotional illness? No My [facility] ([facility]), please select appointment type: Face to face: Yes-Do you have an upgraded (Premium) account which gives you the added benefit of Secure Messaging with your Primary Care Provider and refilling your prescriptions online? Yes- Done Contact provided Primary Care phone number and encouraged to call if any questions or concerns. Review that after hours nurse line [phone] and emergency room are available 18/12 for patient use. Contact verbalized good understanding. [facility] MAP: PERSONAL HEALTH PLAN INVENTORY & MAP 's Response: family /fer/ SARA SCHNEIDER LPN LICENSED PRACTICAL NURSE Signed: 05/13/2024 08:31 05/13/2024 ADDENDUM STATUS: COMPLETED Td / Tdap Immunization - L,N,P,PH,U: Administered: TDAP Date Administered: May 13, 2024 08:15 Dental Manager: SANOFI PASTEUR Lot: [id number] Exp Date: Jul 25, 2025 Admin Route/Site: INTRAMUSCULAR/LEFT DELTOID Dosage: 0.5mL Vaccine Information Statement(s): TDAP (TETANUS, DIPHTHERIA, PERTUSSIS) VACCINE VIS Dec 31, 2020 ([place]) Order By: Alex Moreno Administered By: Sara Schneider Override Reason: pt request Vaccine Information Sheet (VIS) was given to the patient/caregiver, education regarding adverse reactions was discussed, as well as barriers to learning, if any, were acknowledged. Pneumococcal PPSV23 (Pneumovax) - L,N,P,PH,U: Administered: PNEUMOCOCCAL POLYSACCHARIDE PPV23 Date Administered: May 13, 2024 08:15 Dental Manager: [employer] Lot: [id number] Exp Date: Jun 20, 2025 [facility]: [phone] Admin Route/Site: INTRAMUSCULAR/RIGHT DELTOID Dosage: 0.5mL Vaccine Information Statement(s): PPSV23 VIS Mar 26, 2019 ([place]) Order By: Alex Moreno Administered By: Sara Schneider Vaccine Information Sheet (VIS) was given to the patient/caregiver, education regarding adverse reactions was discussed, as well as barriers to learning, if any, were acknowledged. /fer/ SARA SCHNEIDER LPN LICENSED PRACTICAL NURSE Signed: 05/13/2024 10:38 SARA SCHNEIDER [facility]
--- OUTSIDE RECORDS SUMMARY | 2024-11-26 13:06 | XMS_ITS | Encounter Summary ---
Author Name [facility] Organization [facility] [place] Address [address] [place] [id number] Care Team Providers Care Pull Through Hooker Name Role Phone JOSE GAMA Primary Care Provider ALEX Child Unavailable Unavailable [...] [facility] (WNR) May 28, 2023 [id number] [id number] [id number] CHRISTOPHE MONROE PATIENT [facility] ([id number]) PRESCRIPT ION STATE [facility] Nov 25, 2014 [id number] [phone] GILBERT MONROE PATIENT [facility] (STIL 11/25/20) PREFERRED PROVIDER ORGANIZAT ION (PPO) [place] Nov 25, 2020 [id number] [phone] GILBERT MONROE PATIENT [facility] ([facility] 11/25/20) PREFERRED PROVIDER ORGANIZAT ION (PPO) [place] Nov 25, 2020 [id number] [phone] GILBERT MONROE PATIENT [facility] ([facility]) PRESCRIPT ION [place] May 28, 2010 [id number] [phone] GILBERT MONROE PATIENT Selected Encounter This section includes the information on record at [place] for the Encounter. Date/Time Encounter Type Encounter Description Reason Provider Source May 16, 2024 09:15 AM OFFICE O/P EST LOW 20 MIN DERMATOLOGY ICD-10-CM L57.0 Actinic keratosis VELAMANDAMAURICIO JAMILGiovani Encounter Template Text not used by [place] Assessments - Encounter Diagnoses This section includes the primary and secondary diagnoses documented for the Encounter. Date/Time Primary/Secondary Diagnosis Diagnosis Name Provider Source May 16, 2024 09:11 AM PRIMARY Actinic keratosis CRUMSHEELA ABDI [facility] May 16, 2024 09:11 AM SECONDARY Other melanin hyperpigmentation SHEELA CRUM [facility] May 16, 2024 09:11 AM SECONDARY Other seborrheic keratosis CRUMSHEELA ABDI [facility] May 16, 2024 09:11 AM SECONDARY Personal history of other malignant neoplasm of skin CRUMSHEELA ABDI [facility] Plan of Treatment: Future Appointments (+ 6 months) and Future Tests (+/- 45 days) The Plan of Treatment section includes future care activities for the patient from all [place] treatmentfacilities. This section includes future appointments and future orders which are active, pending or scheduled. Future Appointments This section includes appointments that were scheduled to occur 6 months from the date of the Encounter, up to a maximum of 20 appointments. The data comes from all [place] treatment facilities. Appointment Date/Time Appointment Type Appointme nt Facility Name Nov 10, 2024 08:15 AM AMBULATORY - MEDICINE [facility] Lab Results: +/- 30 days of the encounter This section includes the Chemistry and Hematology Lab Results on record with [place] for the patient. Radiology Reports and Pathology Reports are provided separately, in subsequent sections. Lab Results This section contains the Chemistry/Hematology Results that were resulted 30 days before or 30 daysafter the date of the Encounter. Date/Time Source Result Type Result - Unit Interpretation Reference Range Specimen Type Comment Jun 13, 2024 10:03 AM [facility] POTASSIUM PLASMA Specimen Type: PLASMA Comment: No hemolysis noted. Ordering Provider: SAMY GUTIERREZ Report Released Date/Time: May 13, 2024 03:58 PM Reporting Lab: [facility] [address] [place] [phone] Performing Lab: [facility] [address] [place] [address] POTASSIUM 4.5 meq/L 3.5-5.0 May 13, 2024 10:08 AM [facility] HIV COMBO FOURTH GENERATION (STL) SERUM Speci men Type: SERUM No comment entered. Ordering Provider: SAMY GUTIERREZ Report Released Date/Time: May 13, 2024 09:16 AM Reporting Lab: [facility] [address] [place] [phone] Performing Lab: [place] [phone] HIV COMBO FOURTH GENERATION (STL) Nonreactive Nonreactive May 13, 2024 10:08 AM [facility] PROST. SPECIFIC AG.(PB-STL) SERUM Specimen Ty pe: SERUM Comment: The listed sex of this patient may not be a typical indication for this test. Therefore, reference ranges or interpretive criteria listed may not be valid. Clinical correlation suggested. Ordering Provider: SAMY GUTIERREZ Report Released Date/Time: May 13, 2024 09:16 AM Reporting Lab: [facility] [address] [place] [address] Performing Lab: [facility] [address] [place] [address] PROST. SPECIFIC AG.(PB-STL) 2.172 ng/mL 0.000-4.000 May 13, 2024 10:08 AM [facility] VITAMIN D, 25-HYDROXY SERUM Specimen Type: SE RUM Comment: The listed sex of this patient may not be a typical indication for this test. Therefore, reference ranges or interpretive criteria listed may not be valid. Clinical correlation suggested. Ordering Provider: SAMY GUTIERREZ Report Released Date/Time: May 13, 2024 09:16 AM Reporting Lab: [facility] [address] [place] [address] Performing Lab: [facility] [address] [place] [phone] VITAMIN D, 25-HYDROXY 28.8 ng/mL L 30-96 May 13, 2024 10:08 AM [facility] B12 SERUM Specimen Type: SERUM Comment: The listed sex of this patient may not be a typical indication for this test. Therefore, reference ranges or interpretive criteria listed may not be valid. Clinical correlation suggested. Ordering Provider: SMAY GUTIERREZ Report Released Date/Time: May 13, 2024 09:16 AM Reporting Lab: [facility] [address] [facility] [phone] Performing Lab: [facility] [facility] [phone] B12 1778 pg/mL H 213-816 May 13, 2024 10:08 AM [facility] TSH W/ REFLEX FT4 (STL) PLASMA Specimen Type: PLASMA No comment entered. Ordering Provider: SAMY GUTIERREZ Report Released Date/Time: May 13, 2024 09:16 AM Reporting Lab: [facility] [facility] [phone] Performing Lab: [facility] [facility] [address] TSH 3.870 u[IU]/mL 0.470-5.000 May 13, 2024 10:08 AM [facility] HGA1C BLOOD Specimen Type: BLOOD No comment entered. Ordering Provider: SAMY GUTIERREZ Report Released Date/Time: May 13, 2024 09:16 AM Reporting Lab: [facility] [phone] Performing Lab: [facility] [facility] [phone] HGA1C 5.6 4.0-6.0 May 13, 2024 10:08 AM [facility] COMPREHENSIVE METABOLIC PANEL PLASMA Specimen Type: PLASMA Comment: No hemolysis noted. Ordering Provider: SAMY GUTIERREZ Report Released Date/Time: May 13, 2024 09:16 AM Reporting Lab: [facility] [facility] [phone] Performing Lab: [facility] [facility] [phone] CREATININE 1.23 mg/dL 0.70-1.30 UREA NITROGEN 17.8 [...] 61.22 >60 May 13, 2024 10:08 AM [facility] LIPID PANEL (STL) PLASMA Specimen Type: PLASM A Comment: No hemolysis noted. Ordering Provider: SAMY GUTIERREZ Report Released Date/Time: May 13, 2024 09:16 AM Reporting Lab: [facility] [address] [place] [address] Performing Lab: [facility] [facility] [phone] CHOLESTEROL 173 mg/dL 0-200 TRIGLYCERIDE 92 mg/dL 0-150 CALCULATED LDL 113 mg/dL See Interp HDL(New) 42 mg/dL > 40 May 13, 2024 10:08 AM [facility] CBC BLOOD Specimen Type: BLOOD No comment entered. Ordering Provider: SAMY GUTIERREZ Report Released Date/Time: May 13, 2024 09:16 AM Reporting Lab: [facility] [phone] Performing Lab: [facility] [phone] WBC 5.2 10*3/uL 3.6-11.2 RBC 4.37 10*6/uL [...] 0.60 BASOPHILS, ABSOLUTE 0.02 10*3/uL 0.00-0. 20 Encounter Notes: All associated encounter notes This section contains the clinical notes associated to the Encounter. Date/Time Encounter Note(s) Provider Source May 16, 2024 09:03 AM DERMATOLOGY NOTE: LOCAL TITLE: DERMATOLOGY NOTE STANDARD TITLE: DERMATOLOGY NOTE DATE OF NOTE: MAY 16, 2024@09:03 ENTRY DATE: MAY 16, 2024@09:03:52 AUTHOR: SHEELA CRUM EXP COSIGNER: MAURICIO NGUYEN URGENCY: STATUS: COMPLETED DERMATOLOGY NOTE Has ADDENDA DERM CLINIC NOTE NAY MONROE is a 73 year MALE with a history of skin cancer (remote BCC L shoulder s/p EDC) presenting for FBSE. No new skin concerns today. Allergies: Patient has answered NKA ROS: all systems reviewed and were negative except as noted in the HPI Family history of skin cancer (non-melanoma, melanoma): none OBJECTIVE Physical Examination scaly pink papules on bilateral temples, forehead Scattered brown keratotic stuck on appearing papules on the trunk, b/l upper extremities, b/l thigs Scattered light brown well circumscribed macules on face, trunk, upper extremities left shoulder, left faith with WHSS, NER otherwise: General Appearance: Well Appearing MALE, NAD Mood/Affect: pleasant/appropriate Face: WNL Ears: WNL Nose: WNL Forehead: WNL Scalp, Hair: no scale Neck: WNL Chest: WNL Abd: WNL Back: WNL Upper Extremities: WNL Lower Extremities: WNL Nails/Hair: WNL ASSESSMENT AND PLAN # Actinic keratoses LN2 x 5 sec x 6 lesions Blister care and photoprotection # Seborrheic keratoses Benign, reassurance # Lentigines ABCDEs reviewed Monthly self skin examinations Yearly MD full body skin examination Photoprotection # H/o NMSC No evidence of recurrence or new primaries today Monthly self skin examinations Regular [place] full body skin examination Photoprotection with broad spectrum SPF 30+ daily and reapplied p2hgolo, use of UPF clothing and hats, and sun avoidance Pt phone: RTC 6 months, or sooner prn /fer/ Sheela Crum MD Dermatology Resident Signed: 05/16/2024 09:12 /fer/ MAURICIO NGUYEN MD DERMATOLOGY & DERMATOPATHOLOGY Cosigned: 05/16/2024 09:59 05/16/2024 ADDENDUM STATUS: COMPLETED Reviewed documented history and physical examination and agree with assessment and plan. I was immediately available during entire visit and procedures. /fer/ MAURICIO NGUYEN MD DERMATOLOGY & DERMATOPATHOLOGY Signed: 05/16/2024 10:01 SHEELA CRUM [facility]
--- OUTSIDE RECORDS SUMMARY | 2024-11-26 13:06 | XMS_ITS | Continuity of Care Document ---
Author Name [facility] Organization [facility] Care Team Providers Care Business Services Director Name Role Phone [facility] Unavailable Unavailable Problems Combined list of problems from Department of Defense and Veterans Affairs facilities. It does not include entries that were removed or entered in error. Problem Status Onset Date Problem Type Date of Resolution Comments Source Allergic rhinitis Active Condition [facility] Basal cell carcinoma of skin Active Condition [facility] Benign prostatic hyperplasia Active Condition [facility] CAD - Coronary Artery Disease ([facility] [id number]) Active Condition [facility] Dyspnea on exertion Active Condition [facility] Exposure to potentially hazardous substance Active Condition [facility] Fall Active Condition [facility] History of coronary artery bypass grafting Active Condition Jul 08, 2021 Entered By: MARTHA DIAZ Comment: CABG X5 2013 [facility] History of polyp of colon Active Condition [facility] HTN - Hypertension ([facility] [id number]) Active Condition [facility] Hyperlipidemia ([facility] [id number]) Active Condition [facility] Hypothyroidism Active Condition [facility] Pain in lower limb Active Condition [facility] Posttraumatic stress disorder Active Condition [facility] Prediabetes ([facility] [id number]) Active Condition [facility] Ra[facility] prostate specific antigen Active Condition [facility] Sleep apnea Active Condition [facility] Spinal stenosis Active Condition [facility] Vertigo Active Condition [facility] Frequency of Urination (ICD-9-CM 788.41) Inactive Condition 07/07/2021 [facility] Diagnosis: ICD-10-CM I25.10 Athscl heart disease of [place] coronary artery w/o ang pctrs Active Diagnosis [facility] Diagnosis: ICD-10-CM L57.0 Actinic keratosis Active Diagnosis [facility] Diagnosis: ICD-10-CM E78.5 Hyperlipidemia, unspecified Active Diagnosis [facility] Diagnosis: ICD-10-CM Z23 Encounter for immunization Active Diagnosis [facility] Diagnosis: ICD-10-CM M21.41 Flat foot [pes planus] (acquired), right foot Active Diagnosis [facility] Diagnosis: ICD-10-CM M48.00 Spinal stenosis, site unspecified Active Diagnosis [facility] Diagnosis: ICD-10-CM D23.122 Other benign neoplasm skin/ left lower eyelid, inc canthus Active Diagnosis [facility] Diagnosis: ICD-10-CM Z96.1 Presence of intraocular lens Active Diagnosis [facility] Medications Combined list of outpatient medications from Department of Defense and [facility] Affairs facilities.Medications provided include 1) outpatient medications from the last 15 months, and 2) patient-reported medications. Medication Details Route Status Patient Instructions Prescription Expires Prescription Number Last Dispense Date Ordering Provider Order Date Order Qty Source ALBUTEROL SO4 90MCG/ACTUA T (CFC-F) INHL,ORAL,8 .5GM INHALE 2 PUFFS ORAL INHALATI ON FOUR TIMES A DAY NEEDED SHAKE WELL. RINSE MOUTHPIE CE FREQUENT LY TO PREVENT CLOGGING . USE 20 MINUTES PRIOR TO EXERTION . RESPIR ATORY (INHAL ATION) ACTIVE 05/14/2025 [id number] SAMY GUTIERREZ 2023 1 [facility] ALBUTEROL SO4 90MCG/ACTUA T (CFC-F) INHL,ORAL,8 .5GM INHALE 2 PUFFS ORAL INHALATI ON FOUR TIMES A DAY NEEDED SHAKE WELL. RINSE MOUTHPIE CE FREQUENT LY TO PREVENT CLOGGING . USE 20 MINUTES PRIOR TO EXERTION . RESPIR ATORY (INHAL ATION) DISCONT INUED 11/06/2024 [id number] Blaze LEE 2023 1 [facility] AMLODIPINE BESYLATE 2.5MG TAB TAKE ONE TABLET BY MOUTH ONCE A DAY FOR HEART/BL OOD PRESSURE ORAL ACTIVE 05/14/2025 [id number] SAMY GUTIERREZ 2024 90 [facility] AMLODIPINE BESYLATE 2.5MG TAB TAKE ONE TABLET BY MOUTH ONCE A DAY FOR HEART/BL OOD PRESSURE ORAL DISCONT INUED 10/11/2024 [id number] CHRISTOS GAMA T 2023 90 [facility] AMLODIPINE BESYLATE 2.5MG TAB TAKE ONE TABLET BY MOUTH ONCE A DAY FOR HEART/BL OOD PRESSURE ORAL DISCONT INUED 12/05/2023 [id number] CHRISTOS ASCENCIO 2022 90 [facility] ASCORBIC ACID 500MG TAB TAKE ONE TABLET BY MOUTH ONCE A DAY ORAL ACTIVE Blaze LEE 2023 [facility] ASPIRIN 81MG TAB,CHEWABL E CHEW AND SWALLOW ONE TABLET BY MOUTH ONCE A DAY (TAKE WITH FOOD) ORAL ACTIVE 11/11/2025 [id number] SAMY GUTIERREZ 2024 90 [facility] ATORVASTATI N CA 80MG TAB TAKE ONE-HALF TABLET BY MOUTH EVERY EVENING TO LOWER CHOLESTE ROL ORAL ACTIVE 11/11/2025 [id number] 5 SAMY GUTIERREZ 2024 45 [facility] ATORVASTATI N CA 80MG TAB TAKE ONE-HALF TABLET BY MOUTH EVERY EVENING TO LOWER CHOLESTE ROL ORAL DISCONT INUED 12/10/2024 [id number] CHRISTOS ASCENCIO 2023 45 [facility] CYANOCOBALA MIN 1000MCG TAB TAKE TWO TABLETS BY MOUTH ONCE A DAY ORAL ACTIVE Blaze LEE 2023 [facility] FLAXSEED OIL CAP TAKE 1 CAPSULE BY MOUTH ONCE A DAY ORAL ACTIVE BRENDA SAMY Larson 2023 [facility] FLUOROURACI L 5% CREAM,TOP APPLY THIN FILM TO AFFECTED AREA(S) TWICE A DAY AVOID SUN EXPOSURE . FOLLOW DIRECTIO NS CAREFULL Y FOR PROPER HANDLING /DISPOSA L. TOPICA L 12/12/2023 [id number] SA GEE ZENDEJAS 2023 40 [facility] IPRATROPIUM BR 0.03% SOLN,SPRAY, NASAL USE 2 SPRAYS INTO NOSTRIL( S) TWICE DAILY NEEDED NASAL ACTIVE 08/05/2025 [id number] RA JOSELIN GATES 2024 90 [facility] IPRATROPIUM BR 0.03% SOLN,SPRAY, NASAL USE 2 SPRAYS INTO NOSTRIL( S) THREE TIMES A DAY FOR ALLERGIE S/NASAL SYMPTOMS . NASAL DISCONT INUED 03/13/2025 [id number] NICKOLAS MARIE 2023 30 [facility] IPRATROPIUM BR 0.03% SOLN,SPRAY, NASAL USE 2 SPRAYS INTO NOSTRIL( S) THREE TIMES A DAY FOR ALLERGIE S/NASAL SYMPTOMS . NASAL DISCONT INUED 09/21/2024 [id number] 4 NICKOLAS MARIE 2023 30 [facility] LEVOTHYROXI NE NA 25MCG TAB TAKE ONE TABLET BY MOUTH EVERY MORNING BEFORE A MEAL FOR THYROID. TAKE 30 MINUTES BEFORE FOOD. TAKE SEPARATE LY FROM ALL OTHER MEDICATI ONS. ORAL SUSPEND ED 05/14/2025 [id number] SAMY GUTIERREZ F 2024 90 [facility] LEVOTHYROXI NE NA 25MCG TAB (SYNTHROID) TAKE ONE TABLET BY MOUTH EVERY MORNING BEFORE A MEAL FOR THYROID. TAKE 30 MINUTES BEFORE FOOD. TAKE SEPARATE LY FROM ALL OTHER MEDICATI ONS. ORAL DISCONT INUED 10/11/2024 [id number] NICKOLAS MARIE 2023 90 [facility] LIDOCAINE 5% PATCH APPLY 1 PATCH TO SKIN SITE ONCE A DAY APPLY PATCH AND PRESS FIRMLY FOR 10-15 SECONDS. KEEP ON FOR 12 HOURS THEN REMOVE PATCH FOR 12 HOURS. TRANSD ERMAL ACTIVE 02/07/2025 [id number] 5 Constance COKER 2023 30 [facility] LORATADINE 10MG TAB TAKE ONE TABLET BY MOUTH ONCE A DAY ON EMPTY STOMACH ORAL SUSPEND ED 11/11/2025 [id number] 5 SAMY GUTIERREZ 2024 90 [facility] LORATADINE 10MG TAB TAKE ONE TABLET BY MOUTH ONCE A DAY ON EMPTY STOMACH ORAL DISCONT INUED 05/07/2025 [id number] RA JOSELIN GATES 2023 90 [facility] LORATADINE 10MG TAB TAKE ONE TABLET BY MOUTH ONCE A DAY ON EMPTY STOMACH ORAL DISCONT INUED 11/06/2024 [id number] Blaze LEE 2023 90 [facility] MAGNESIUM GLUCONATE 500MG TAB TAKE ONE TABLET BY MOUTH ORAL ACTIVE Blaze LEE 2023 [facility] MULTIVITAMI N/MINERALS ANTIOXIDANT CAP/TAB TAKE 1 CAP/TAB BY MOUTH ONCE A DAY ORAL ACTIVE Blaze LEE 2023 [facility] MULTIVITAMI N/MINERALS ANTIOXIDANT CAP/TAB TAKE 1 CAP/TAB BY MOUTH ONCE A DAY ORAL ACTIVE SAMY GUTIERREZ 2023 [facility] NITROGLYCER IN 0.4MG TAB,SUBLING UAL DISSOLVE ONE TABLET UNDER THE TONGUE ONE-TIME NEEDED FOR CHEST PAIN; IF NO IMPROVEM ENT AFTER FIRST DOSE CALL 9-1-1. MAY TAKE 2 ADDITION AL DOSES, 5 MINUTES APART SUBLIN GUAL ACTIVE 11/11/2025 [id number] SAMY GUTIERREZ 2024 100 [facility] NITROGLYCER IN 0.4MG TAB,SUBLING UAL DISSOLVE ONE TABLET UNDER THE TONGUE ONE-TIME NEEDED FOR CHEST PAIN; IF NO IMPROVEM ENT AFTER FIRST DOSE CALL 9-1-1. MAY TAKE 2 ADDITION AL DOSES, 5 MINUTES APART SUBLIN GUAL DISCONT INUED 12/04/2024 [id number] [facility] 2023 100 [facility] RANOLAZINE 500MG TAB,SA TAKE ONE TABLET BY MOUTH TWICE A DAY FOR HEART. *SWALLOW WHOLE- DO NOT CRUSH,BR EAK OR CHEW* ORAL ACTIVE 11/11/2025 [id number] SAMY GUTIERREZ 2024 180 [facility] RANOLAZINE 500MG TAB,SA TAKE ONE TABLET BY MOUTH TWICE A DAY FOR HEART. *SWALLOW WHOLE- DO NOT CRUSH,BR EAK OR CHEW* ORAL DISCONT INUED 12/04/2024 [id number] [facility] 2023 180 [facility] RANOLAZINE 500MG TAB,SA TAKE ONE TABLET BY MOUTH TWICE A DAY FOR HEART. *SWALLOW WHOLE- DO NOT CRUSH,BR EAK OR CHEW* ORAL DISCONT INUED 12/05/2023 [id number] [facility] 2022 180 [facility] Immunizations Combined list of available immunizations from the Department of Defense and [facility] facilities. Immunization Series Date Given Administered By Site Reaction Lot Number CVX Code Drug Cloth Shader Status Comments Source PNEUMOCOCCAL POLYSACCHARID E PPV23 2023 LYNN LEIVA RIGHT DELTO ID [id number] 33 complet ed [facility] TDAP 2023 LYNN LEIVA LEFT DELTO ID [id number] 115 complet ed [facility] INFLUENZA, HIGH-DOSE, TRIVALENT, PF 2023 TYESHA PERKINS LEFT DELTO ID [id number] 135 complet ed Completed Series, [facility] COVID-19 ([facility]), MRNA, LNP-S, PF, JOLENE-SUCROSE, 30 MCG/0.3 ML (AGES 12+ YEARS) 1 2022 LEFT DELTO ID [id number] 309 complet ed [facility] INFLUENZA, HIGH-DOSE, QUADRIVALENT 2022 BRONSON,AJOKE LEFT DELTO ID [id number] 197 complet ed Completed Series, [facility] COVID-19 ([employer]), MRNA, LNP-S, BIVALENT BOOSTER, PF, 30 MCG/0.3 ML DOSE 1 2021 300 complet ed PFR; [id number]; 3 [facility] INFLUENZA, SPLIT VIRUS, QUADRIVALENT, PRESERVATIVE 1 2021 158 complet ed HISTORICA L INFORMATI ON - FROM OTHER REGISTRY, [facility] INFLUENZA, UNSPECIFIED FORMULATION 2021 88 complet ed [facility] COVID-19 ([employer]), MRNA, LNP-S, PF, 30 MCG/0.3 ML DOSE, JOLENE-SUCROSE (AGES 12+ YEARS) 3 2021 217 complet ed PFR; [id number]; 2 [facility] COVID-19 ([employer]), MRNA, LNP-S, PF, 30 MCG/0.3 ML DOSE 3 2020 208 complet ed [facility] INFLUENZA, SPLIT VIRUS, QUADRIVALENT, PRESERVATIVE 1 2020 158 complet ed HISTORICA L INFORMATI ON - FROM OTHER REGISTRY, [facility] INFLUENZA, UNSPECIFIED FORMULATION 2020 88 complet ed [facility] COVID-19 ([facility]), MRNA, LNP-S, PF, 30 MCG/0.3 ML DOSE 2 2020 208 complet ed HISTORICA L INFORMATI ON - FROM OTHER REGISTRY, [facility] COVID-19 ([facility]), MRNA, LNP-S, PF, 30 MCG/0.3 ML DOSE 2 2020 208 complet ed [facility] COVID-19 ([facility]), MRNA, LNP-S, PF, 30 MCG/0.3 ML DOSE 1 2020 208 complet ed [facility] ZOSTER RECOMBINANT 2 2020 187 complet ed yes from pt [facility] ZOSTER RECOMBINANT 1 2019 187 complet ed yes from pt [facility] INFLUENZA, SPLIT VIRUS, QUADRIVALENT, PRESERVATIVE 1 2019 158 complet ed HISTORICA L INFORMATI ON - FROM OTHER [facility], [facility] INFLUENZA, SPLIT VIRUS, QUADRIVALENT, PRESERVATIVE 1 2018 158 complet ed HISTORICA L INFORMATI ON - FROM OTHER REGISTRY, [facility] PNEUMOCOCCAL POLYSACCHARID E PPV23 1 2017 33 complet ed HISTORICA L INFORMATI ON - FROM OTHER REGISTRY, [facility] INFLUENZA, SPLIT VIRUS, QUADRIVALENT, PRESERVATIVE 1 2016 158 complet ed HISTORICA L INFORMATI ON - FROM OTHER REGISTRY, [facility] INFLUENZA, SPLIT VIRUS, TRIVALENT, PRESERVATIVE 1 2013 141 complet ed HISTORICA L INFORMATI ON - FROM OTHER REGISTRY, [facility] PNEUMOCOCCAL POLYSACCHARID E PPV23 2013 33 complet ed [facility] Results Combined list of recent chemistry, hematology and other laboratory results from Department of Defense and Veterans Affairs, ranging from 15 months to all on record, depending upon the facility. Order Name Results Value Reference Range Date Interpretation Specimen Comments Source CORY Green POTASSIUM [MOLES/VOL UME] IN SERUM OR PLASMA 4.5 meq/L 3.5 - 5.0 06/13 Specimen Type: PLASMA Comment: No hemolysis noted. Ordering Provider: GRAZYNA GUTIERREZ Report Released Date/Time: May 13, 2024 03:58 PM Reporting Lab: [facility] [phone] Performing Lab: [facility] [phone] DIVISION HIV COMBO FOURTH GENERATI ON (STL) HIV 1+2 AB+HIV1 P24 AG [PRESENCE] IN SERUM OR PLASMA BY IMMUNOASSA Y Nonreact yessi 05/13 Specimen Type: SERUM No comment entered. Ordering Provider: GRAZYNA GUTIERREZ Report Released Date/Time: May 13, 2024 09:16 AM Reporting Lab: [facility] [address] [facility] [phone] Performing Lab: [address] [id number] [place] [address] PROST. SPECIFIC AG.(PB-S TL) PROSTATE SPECIFIC AG [MASS/VOLU ME] IN SERUM OR PLASMA 2.172 ng/mL 0.000 - 4.000 05/13 Specimen Type: SERUM Comment: The listed sex of this patient may not be a typical indication for this test. Therefore, reference ranges or interpretiv e criteria listed may not be valid. Clinical correlation suggested. Ordering Provider: GRAZYNA GUTIERREZ Report Released Date/Time: May 13, 2024 09:16 AM Reporting Lab: [facility] [address] Performing Lab: [facility] [phone] [place] [address] DIVISION VITAMIN D, 25-HYDRO XY 25-HYDROXY VITAMIN D3 [MASS/VOLU ME] IN SERUM OR PLASMA 28.8 ng/mL 30 - 96 05/13 L Specimen Type: SERUM Comment: The listed sex of this patient may not be a typical indication for this test. Therefore, reference ranges or interpretiv e criteria listed may not be valid. Clinical correlation suggested. Ordering Provider: GRAZYNA GUTIERREZ Report Released Date/Time: May 13, 2024 09:16 AM Reporting Lab: [facility] [place] [address] Performing Lab: [facility] DIVISION B12 COBALAMIN (VITAMIN B12) [MASS/VOLU ME] IN SERUM OR PLASMA 1778 pg/mL 213 - 816 05/13 H Specimen Type: SERUM Comment: The listed sex of this patient may not be a typical indication for this test. Therefore, reference ranges or interpretiv e criteria listed may not be valid. Clinical correlation suggested. Ordering Provider: GRAZYNA GUTIERREZ Report Released Date/Time: May 13, 2024 09:16 AM Reporting Lab: [facility] [place] [address] Performing Lab: [facility] DIVISION TSH W/ REFLEX FT4 (STL) THYROTROPI N [UNITS/VOL UME] IN SERUM OR PLASMA 3.870 u[IU]/mL 0.470 - 5.000 05/13 Specimen Type: PLASMA No comment entered. Ordering Provider: GRAZYNA GUTIERREZ Report Released Date/Time: May 13, 2024 09:16 AM Reporting Lab: [facility] [place] [address] Performing Lab: [facility] DIVISION HGA1C HEMOGLOBIN A1C/HEMOGL OBIN.TOTAL IN BLOOD 5.6 4.0 - 6.0 05/13 Specimen Type: BLOOD No comment entered. Ordering Provider: GRAZYNA GUTIERREZ Report Released Date/Time: May 13, 2024 09:16 AM Reporting Lab: [facility] [place] [address] Performing Lab: [facility] DIVISION COMPREHE NSIVE METABOLI C PANEL CREATININE [MASS/VOLU ME] IN SERUM OR PLASMA 1.23 mg/dL 0.70 - 1.30 05/13 Specimen Type: PLASMA Comment: No hemolysis noted. Ordering Provider: GRAZYNA GUTIERREZ Report Released Date/Time: May 13, 2024 09:16 AM Reporting Lab: [facility] [phone] Performing Lab: [facility] DIVISION COMPREHE NSIVE METABOLI C PANEL UREA NITROGEN [MASS/VOLU ME] IN SERUM OR PLASMA 17.8 mg/dL 9.0 - 25.0 05/13 Specimen Type: PLASMA Comment: No hemolysis noted. Ordering Provider: GRAZYNA GUTIERREZ Report Released Date/Time: May 13, 2024 09:16 AM Reporting Lab: [facility] [place] [address] Performing Lab: [facility] DIVISION COMPREHE NSIVE METABOLI C PANEL GLUCOSE [MASS/VOLU ME] IN SERUM OR PLASMA 109 mg/dL 72 - 99 05/13 H Specimen Type: PLASMA Comment: No hemolysis noted. Ordering Provider: GRAZYNA GUTIERREZ Report Released Date/Time: May 13, 2024 09:16 AM Reporting Lab: [facility] [place] [address] Performing Lab: [facility] DIVISION COMPREHE NSIVE METABOLI C PANEL SODIUM [MOLES/VOL UME] IN SERUM OR PLASMA 139 meq/L 136 - 145 05/13 Specimen Type: PLASMA Comment: No hemolysis noted. Ordering Provider: GRAZYNA GUTIERREZ Report Released Date/Time: May 13, 2024 09:16 AM Reporting Lab: [facility] [place] [address] Performing Lab: [facility] [phone] [place] [address] DIVISION COMPREHE NSIVE METABOLI C PANEL POTASSIUM [MOLES/VOL UME] IN SERUM OR PLASMA 5.5 meq/L 3.5 - 5.0 05/13 H Specimen Type: PLASMA Comment: No hemolysis noted. Ordering Provider: GRAZYNA GUTIERREZ Report Released Date/Time: May 13, 2024 09:16 AM Reporting Lab: [facility] [address] Performing Lab: [facility] [phone] DIVISION COMPREHE NSIVE METABOLI C PANEL CHLORIDE [MOLES/VOL UME] IN SERUM OR PLASMA 106 meq/L 98 - 107 05/13 Specimen Type: PLASMA Comment: No hemolysis noted. Ordering Provider: GRAZYNA GUTIERREZ Report Released Date/Time: May 13, 2024 09:16 AM Reporting Lab: [facility] [place] [phone] Performing Lab: [facility] [phone] DIVISION COMPREHE NSIVE METABOLI C PANEL CARBON DIOXIDE, TOTAL [MOLES/VOL UME] IN SERUM OR PLASMA 26 meq/L 22 - 31 05/13 Specimen Type: PLASMA Comment: No hemolysis noted. Ordering Provider: GRAZYNA GUTIERREZ Report Released Date/Time: May 13, 2024 09:16 AM Reporting Lab: [facility] [address] Performing Lab: [facility] DIVISION COMPREHE NSIVE METABOLI C PANEL CALCIUM [MASS/VOLU ME] IN SERUM OR PLASMA 9.9 mg/dL 8.4 - 10.4 05/13 Specimen Type: PLASMA Comment: No hemolysis noted. Ordering Provider: GRAZYNA GUTIERREZ Report Released Date/Time: May 13, 2024 09:16 AM Reporting Lab: [facility] [place] [address] Performing Lab: [facility] DIVISION COMPREHE NSIVE METABOLI C PANEL PROTEIN [MASS/VOLU ME] IN SERUM OR PLASMA 6.7 g/dL 6.0 - 8.6 05/13 Specimen Type: PLASMA Comment: No hemolysis noted. Ordering Provider: GRAZYNA GUTIERREZ Report Released Date/Time: May 13, 2024 09:16 AM Reporting Lab: [facility] [place] [address] Performing Lab: [facility] DIVISION COMPREHE NSIVE METABOLI C PANEL ALBUMIN [MASS/VOLU ME] IN SERUM OR PLASMA 4.5 g/dL 3.4 - 5.0 05/13 Specimen Type: PLASMA Comment: No hemolysis noted. Ordering Provider: GRAZYNA GUTIERREZ Report Released Date/Time: May 13, 2024 09:16 AM Reporting Lab: [facility] [place] [address] Performing Lab: [facility] DIVISION COMPREHE NSIVE METABOLI C PANEL BILIRUBIN. TOTAL [MASS/VOLU ME] IN SERUM OR PLASMA 0.6 mg/dL 0.2 - 1.2 05/13 Specimen Type: PLASMA Comment: No hemolysis noted. Ordering Provider: GRAZYNA GUTIERREZ Report Released Date/Time: May 13, 2024 09:16 AM Reporting Lab: [facility] [place] [address] Performing Lab: [facility] DIVISION COMPREHE NSIVE METABOLI C PANEL ALKALINE PHOSPHATAS E [ENZYMATIC ACTIVITY/V OLUME] IN SERUM OR PLASMA 84 U/L 40 - 150 05/13 Specimen Type: PLASMA Comment: No hemolysis noted. Ordering Provider: GRAZYNA GUTIERREZ Report Released Date/Time: May 13, 2024 09:16 AM Reporting Lab: [facility] [place] [address] Performing Lab: [facility] DIVISION COMPREHE NSIVE METABOLI C PANEL ASPARTATE AMINOTRANS FERASE [ENZYMATIC ACTIVITY/V OLUME] IN SERUM OR PLASMA 20 U/L 5 - 34 05/13 Specimen Type: PLASMA Comment: No hemolysis noted. Ordering Provider: GRAZYNA GUTIERREZ Report Released Date/Time: May 13, 2024 09:16 AM Reporting Lab: [facility] [place] [id number] Performing Lab: [facility] DIVISION COMPREHE NSIVE METABOLI C PANEL ALANINE AMINOTRANS FERASE [ENZYMATIC ACTIVITY/V OLUME] IN SERUM OR PLASMA 23 U/L 8 - 40 05/13 Specimen Type: PLASMA Comment: No hemolysis noted. Ordering Provider: GRAZYNA GUTIERREZ Report Released Date/Time: May 13, 2024 09:16 AM Reporting Lab: [facility] [place] [address] Performing Lab: [facility] DIVISION COMPREHE NSIVE METABOLI C PANEL GLOMERULAR FILTRATION RATE/1.73 SQ M.PREDICTE D [VOLUME RATE/AREA] IN SERUM, PLASMA OR BLOOD BY CREATININE -BASED FORMULA (CKD-EPI 2020) 61.22 60 05/13 Specimen Type: PLASMA Comment: No hemolysis noted. Ordering Provider: GRAZYNA GUTIERREZ Report Released Date/Time: May 13, 2024 09:16 AM Reporting Lab: [facility] [place] [id number] Performing Lab: [facility] [place] [id number] LIPID PANEL (STL) CHOLESTERO L [MASS/VOLU ME] IN SERUM OR PLASMA 173 mg/dL 0 - 200 05/13 Specimen Type: PLASMA Comment: No hemolysis noted. Ordering Provider: GRAZYNA GUTIERREZ Report Released Date/Time: May 13, 2024 09:16 AM Reporting Lab: [facility] [place] [address] Performing Lab: [facility] LIPID PANEL (STL) TRIGLYCERI DE [MASS/VOLU ME] IN SERUM OR PLASMA 92 mg/dL 0 - 150 05/13 Specimen Type: PLASMA Comment: No hemolysis noted. Ordering Provider: GRAZYNA GUTIERREZ Report Released Date/Time: May 13, 2024 09:16 AM Reporting Lab: [facility] [place] [address] Performing Lab: [facility] [place] [id number] LIPID PANEL (STL) CHOLESTERO L IN LDL [MASS/VOLU ME] IN SERUM OR PLASMA BY CALCULATROYO N 113 mg/dL 05/13 Specimen Type: PLASMA Comment: No hemolysis noted. Ordering Provider: GRAZYNA GUTIERREZ Report Released Date/Time: May 13, 2024 09:16 AM Reporting Lab: [facility] [place] [address] Performing Lab: [facility] [place] [phone] DIVISION LIPID PANEL (STL) CHOLESTERO L IN HDL [MASS/VOLU ME] IN SERUM OR PLASMA 42 mg/dL 40 05/13 Specimen Type: PLASMA Comment: No hemolysis noted. Ordering Provider: GRAZYNA GUTIERREZ Report Released Date/Time: May 13, 2024 09:16 AM Reporting Lab: [facility] [address] Performing Lab: [facility] [phone] DIVISION CBC LEUKOCYTES [#/VOLUME] IN BLOOD BY AUTOMATED COUNT 5.2 10*3/uL 3.6 - 11.2 05/13 Specimen Type: BLOOD No comment entered. Ordering Provider: GRAZYNA GUTIERREZ Report Released Date/Time: May 13, 2024 09:16 AM Reporting Lab: [facility] [address] Performing Lab: [facility] [phone] [place] [address] DIVISION CBC ERYTHROCYT ES [#/VOLUME] IN BLOOD BY AUTOMATED COUNT 4.37 10*6/uL 4.10 - 5.70 05/13 Specimen Type: BLOOD No comment entered. Ordering Provider: GRAZYNA GUTIERREZ Report Released Date/Time: May 13, 2024 09:16 AM Reporting Lab: [facility] [address] Performing Lab: [facility] [phone] [place] [address] DIVISION CBC HEMOGLOBIN [MASS/VOLU ME] IN BLOOD 15.1 g/dL 13.1 - 16.8 05/13 Specimen Type: BLOOD No comment entered. Ordering Provider: GRAZYNA GUTIERREZ Report Released Date/Time: May 13, 2024 09:16 AM Reporting Lab: [facility] [address] Performing Lab: [facility] [phone] [place] [address] DIVISION CBC HEMATOCRIT [VOLUME FRACTION] OF BLOOD 42.8 38.2 - 48.4 05/13 Specimen Type: BLOOD No comment entered. Ordering Provider: GRAZYNA GUTIERREZ Report Released Date/Time: May 13, 2024 09:16 AM Reporting Lab: [facility] [phone] Performing Lab: [facility] CBC MCV [ENTITIC VOLUME] BY AUTOMATED COUNT 97.9 fL 80.0 - 100.0 05/13 Specimen Type: BLOOD No comment entered. Ordering Provider: GRAZYNA GUTIERREZ Report Released Date/Time: May 13, 2024 09:16 AM Reporting Lab: [facility] [place] [address] Performing Lab: [facility] DIVISION CBC MCH [ENTITIC MASS] BY AUTOMATED COUNT 34.6 pg 27.0 - 34.0 05/13 H Specimen Type: BLOOD No comment entered. Ordering Provider: GRAZYNA GUTIERREZ Report Released Date/Time: May 13, 2024 09:16 AM Reporting Lab: [facility] [address] Performing Lab: [facility] DIVISION CBC MCHC [MASS/VOLU ME] BY AUTOMATED COUNT 35.3 g/dL 33.0 - 36.0 05/13 Specimen Type: BLOOD No comment entered. Ordering Provider: GRAZYNA GUTIERREZ Report Released Date/Time: May 13, 2024 09:16 AM Reporting Lab: [facility] [place] [phone] Performing Lab: [facility] [place] [address] [facility] DIVISION CBC PLATELETS [#/VOLUME] IN BLOOD BY AUTOMATED COUNT 191 10*3/uL 150 - 400 05/13 Specimen Type: BLOOD No comment entered. Ordering Provider: GRAZYNA GUTIERREZ Report Released Date/Time: May 13, 2024 09:16 AM Reporting Lab: [facility] [place] [address] Performing Lab: [facility] DIVISION CBC PLATE[place] MEAN VOLUME [ENTITIC VOLUME] IN BLOOD BY AUTOMATED COUNT 9.3 fL 7.5 - 11.2 05/13 Specimen Type: BLOOD No comment entered. Ordering Provider: GRAZYNA GUTIERREZ Report Released Date/Time: May 13, 2024 09:16 AM Reporting Lab: [facility] [place] [address] Performing Lab: [facility] DIVISION CBC ERYTHROCYT E DISTRIBUTI ON WIDTH [RATIO] BY AUTOMATED COUNT 11.2 11.8 - 15.1 05/13 L Specimen Type: BLOOD No comment entered. Ordering Provider: GRAZYNA GUTIERREZ Report Released Date/Time: May 13, 2024 09:16 AM Reporting Lab: [facility] [place] [address] Performing Lab: [facility] DIVISION CBC LYMPHOCYTE S/100 LEUKOCYTES IN BLOOD BY AUTOMATED COUNT 28 05/13 Specimen Type: BLOOD No comment entered. Ordering Provider: GRAZYNA GUTIERREZ Report Released Date/Time: May 13, 2024 09:16 AM Reporting Lab: [facility] [place] [address] Performing Lab: [facility] DIVISION CBC MONOCYTES/ 100 LEUKOCYTES IN BLOOD BY AUTOMATED COUNT 8 05/13 Specimen Type: BLOOD No comment entered. Ordering Provider: GRAZYNA GUTIERREZ Report Released Date/Time: May 13, 2024 09:16 AM Reporting Lab: [facility] [address] Performing Lab: [facility] [phone] DIVISION CBC NEUTROPHIL S/100 LEUKOCYTES IN BLOOD BY AUTOMATED COUNT 61 05/13 Specimen Type: BLOOD No comment entered. Ordering Provider: GRAZYNA GUTIERREZ Report Released Date/Time: May 13, 2024 09:16 AM Reporting Lab: [facility] [address] Performing Lab: [facility] [phone] [place] [address] DIVISION CBC EOSINOPHIL S/100 LEUKOCYTES IN BLOOD BY AUTOMATED COUNT 3 05/13 Specimen Type: BLOOD No comment entered. Ordering Provider: GRAZYNA GUTIERREZ Report Released Date/Time: May 13, 2024 09:16 AM Reporting Lab: [facility] [address] Performing Lab: [facility] [phone] DIVISION CBC BASOPHILS/ 100 LEUKOCYTES IN BLOOD BY AUTOMATED COUNT 0 05/13 Specimen Type: BLOOD No comment entered. Ordering Provider: GRAZYNA GUTIERREZ Report Released Date/Time: May 13, 2024 09:16 AM Reporting Lab: [facility] [address] Performing Lab: [facility] [phone] [place] [address] DIVISION CBC LYMPHOCYTE S [#/VOLUME] IN BLOOD BY AUTOMATED COUNT 1.42 10*3/uL 0.77 - 4.50 05/13 Specimen Type: BLOOD No comment entered. Ordering Provider: GRAZYNA GUTIERREZ Report Released Date/Time: May 13, 2024 09:16 AM Reporting Lab: [facility] [place] [address] Performing Lab: [facility] DIVISION CBC MONOCYTES [#/VOLUME] IN BLOOD BY AUTOMATED COUNT 0.39 10*3/uL 0.19 - 0.80 05/13 Specimen Type: BLOOD No comment entered. Ordering Provider: GRAZYNA GUTIERREZ Report Released Date/Time: May 13, 2024 09:16 AM Reporting Lab: [facility] [place] [address] Performing Lab: [facility] DIVISION CBC NEUTROPHIL S [#/VOLUME] IN BLOOD BY AUTOMATED COUNT 3.15 10*3/uL 2.10 - 8.00 05/13 Specimen Type: BLOOD No comment entered. Ordering Provider: GRAZYNA GUTIERREZ Report Released Date/Time: May 13, 2024 09:16 AM Reporting Lab: [facility] [place] [address] Performing Lab: [facility] DIVISION CBC EOSINOPHIL S [#/VOLUME] IN BLOOD BY AUTOMATED COUNT 0.17 10*3/uL 0.00 - 0.60 05/13 Specimen Type: BLOOD No comment entered. Ordering Provider: GRAZYNA GUTIERREZ Report Released Date/Time: May 13, 2024 09:16 AM Reporting Lab: [facility] [place] [address] Performing Lab: [facility] DIVISION CBC BASOPHILS [#/VOLUME] IN BLOOD BY AUTOMATED COUNT 0.02 10*3/uL 0.00 - 0.20 05/13 Specimen Type: BLOOD No comment entered. Ordering Provider: GRAZYNA GUTIERREZ Report Released Date/Time: May 13, 2024 09:16 AM Reporting Lab: [facility] [address] Performing Lab[facility] [address] [facility] Vital Signs Combined list of inpatient and outpatient Vital Signs from Department of Defense and Veterans Affairs, ranging from 12 months to all on record, depending upon the facility. Vital Sign Value Date Comments Source SYSTOLIC BLOOD PRESSURE 144 11/10/2024 08:32:41 [facility] DIASTOLIC BLOOD PRESSURE 77 11/10/2024 08:32:41 [facility] PULSE OXIMETRY 97 11/10/2024 08:32:41 [facility] TEMPERATURE 97 11/10/2024 08:32:41 [facility] PULSE 63 11/10/2024 08:32:41 [facility] RESPIRATION 16 11/10/2024 08:32:41 [facility] SYSTOLIC BLOOD PRESSURE 135 05/13/2024 08:26:53 [facility] DIASTOLIC BLOOD PRESSURE 74 05/13/2024 08:26:53 [facility] PULSE OXIMETRY 96 05/13/2024 08:26:53 [facility] WEIGHT 203 05/13/2024 08:26:53 [facility] BMI 28 kg/m2 05/13/2024 08:26:53 [facility] PAIN 2 05/13/2024 08:26:53 [facility] TEMPERATURE 98.1 05/13/2024 08:26:53 [facility] PULSE 66 05/13/2024 08:26:53 [facility] RESPIRATION 16 05/13/2024 08:26:53 [facility] SYSTOLIC BLOOD PRESSURE 138 12/04/2023 09:46:14 [facility] DIASTOLIC BLOOD PRESSURE 69 12/04/2023 09:46:14 [facility] PULSE OXIMETRY 98 12/04/2023 09:46:14 [facility] WEIGHT 189.1 12/04/2023 09:46:14 [facility] BMI 26 kg/m2 12/04/2023 09:46:14 [facility] PAIN 2 12/04/2023 09:46:14 [facility] TEMPERATURE 98.1 12/04/2023 09:46:14 [facility] PULSE 67 12/04/2023 09:46:14 [facility] RESPIRATION 16 12/04/2023 09:46:14 [facility] Encounters Combined list of: 1) Encounters from Department of [facility] Affairs facilities going backup to the last 18 months, not all [place] inpatient encounters are included; 2) Encounters from the Department of [facility] facilities going backup to 280 months. Location Location Details Encounter Type Encounter Number Reason For Visit Attending Provider ADM Date DC Date Status Disposition Source [facility] Outpatient Encounter [id number] 05/31 [facility] N [facility] Outpatient Encounter [id number] 07/03 [facility] N [facility] OFFICE O/P EST MOD 30 MIN [id number] Diagnos is: ICD-10- CM Z96.1 Presenc e of intraoc ular lens SKY MYRICK 09/20 [facility] INTRM OPH EXAM NEW PATIENT [id number] Diagnos is: ICD-10- CM 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 OFFICE O/P EST HI 40 MIN [id number] Diagnos is: ICD-10- CM I25.10 [facility]scl heart disease of [place] 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 ang pctCORIN Barboza T 11/05 [facility] OFF/OP CNSLTJ NEW/EST MOD 40 [id number] Diagnos is: ICD-10- CM L57.0 Actinic keratos is Radha RIVERS 11/11 [facility] Outpatient Encounter [id number] Diagnos is: ICD-10- CM M48.00 Spinal stenosi s, site unspeci CORIN Kaplan T 12/02 [facility] OFFICE O/P EST MOD 30 MIN [id number] Diagnos is: ICD-10- CM I25.10 Athscl heart disease of [place] 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 ang CORIN Wiley 12/03 [facility] Outpatient Encounter [id number] 02/21 [facility] OFFICE O/P EST LOW 20 MIN [id number] Diagnos is: ICD-10- CM M21.41 Flat foot [pes planus] (acquir ed), right foot JEROD JAMA 02/21 [facility] [place]UNIZATI [place] ADMIN [id number] Diagnos is: ICD-10- CM Z23 Encount er for immuniz TICO Javed 02/21 [facility] Outpatient Encounter [id number] 05/06 [facility] Outpatient Encounter [id number] 05/13 [facility] OFFICE O/P EST MOD 30 MIN [id number] Diagnos is: ICD-10- CM E78.5 Hyperli pidemia , unspeci fiCORIN Hebert T 05/13 [facility] OFFICE O/P EST LOW 20 MIN [id number] Diagnos is: ICD-10- CM L57.0 Actinic keratos is DENILSON NGUYEN 05/16 [facility] Outpatient Encounter [id number] ALESSIA MONTEJOENIA A 11/07 [facility] OFFICE O/P EST MOD 30 MIN [id number] Diagnos is: ICD-10- CM I25.10 Athscl heart disease of [place] 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 ang pctrs CORIN GAMA T 11/10 [facility] Outpatient Encounter [id number] 11/17 [facility] Social History Combined list of available smoking, tobacco, and other social history from Department of Defense and Veterans Affairs facilities. Social History Type Response Date Comment [facility] e Tobacco smoking status NHIS VA-TOBACCO NEVER USED OTHER TYPE 11/07/2024 [facility] History of tobacco use VA-TOBACCO USE FORMER CIGARETTES 11/07/2024 [facility] History of tobacco use VA-TOBACCO FORMER USER 11/06/2023 [facility] History of tobacco use VA-TOBACCO NEVER USED 10/10/2022 [facility] History of tobacco use VA-TOBACCO FORMER USER 07/08/2021 [facility] Plan of Care List of future care activities from Department of [facility] Affairs facilities. Additional future care activities may be listed in the Assessment and Plan section. Date/Time Care Activity Care Activity Detail Facili ty 12/02/2024 AMBULATORY - MEDICINE AMBULATORY - MEDICI NE [facility]
--- OUTSIDE RECORDS SUMMARY | 2024-11-26 13:07 | XMS_ITS ---
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 Nov 25, 2014 [id number] GILBERT MONROE PATIENT [facility] (STIL 11/25/20) PREFERRED PROVIDER ORGANIZAT ION ([place]O) [place] Nov 25, 2020 [id number] [phone] GILBERT MONROE PATIENT [facility] ([facility] 11/25/20) PREFERRED PROVIDER ORGANIZAT [place]ON [place] Nov 25, 2020 [id number] GILBERT MONROE PATIENT [facility] ([employer]) PRESCRIPT [place] May 28, 2010 [id number] [phone] GILBERT MONROE PATIENT Selected Encounter This section includes the information on record at [place] for the Encounter. Date/Time Encounter Type Encounter Description Reason Provider Source Dec 04, 2023 10:00 AM OFFICE O/P EST MOD 30 MIN CARDIOLOGY ICD-10-CM I25.10 [place] heart disease of [place] coronary [facility] Encounter Template Text not used by [place] Assessments - Encounter Diagnoses This section includes the primary and secondary diagnoses documented for the Encounter. Date/Time Primary/Secondary Diagnosis Diagnosis Name Provider Source Feb 15, 2024 08:51 AM PRIMARY Athscl heart disease of [place] coronary artery w/o [facility] Feb 15, 2024 08:51 AM SECONDARY Essential (primary) hypertension [facility] Feb 15, 2024 08:51 AM SECONDARY Hyperlipidemia, unspecified [facility] Feb 15, 2024 08:51 AM SECONDARY Presence of aortocoronary bypass graft [facility] Plan of Treatment: Future Appointments (+ 6 months) and Future Tests (+/- 45 days) The Plan of Treatment section includes future care activities for the patient from [facility] [place] [facility] This section includes future appointments and future orders which are active, pending or scheduled. Future Appointments This section includes appointments that were scheduled to occur 6 months from the date of the Encounter, up to a maximum of 20 appointments. The data comes from all [place] treatment facilities. Appointment Date/Time Appointment Type Appointme nt Facility Name Feb 22, 2024 08:00 AM AMBULATORY - SURGERY [facility] Feb 22, 2024 08:30 AM AMBULATORY - NONE [facility] May 13, 2024 08:15 AM AMBULATORY - MEDICINE [facility] May 16, 2024 09:15 AM AMBULATORY - MEDICINE [facility] Lab Results: +/- 30 days of the encounter This section includes the Chemistry and Hematology Lab Results on record with [place] for the patient. Radiology Reports and Pathology Reports are provided separately, in subsequent sections. Lab Results This section contains the Chemistry/Hematology Results that were resulted 30 days before or 30 daysafter the date of the Encounter. Date/Time Source Result Type Result - Unit Interpretation Reference Range Specimen Type Comment Nov 06, 2023 09:27 AM [facility] LIPID PANEL (STL) PLASMA Specimen Type: PLASMA Comment: No hemolysis noted. Ordering Provider: SHIRA LEE Report Released Date/Time: Nov 06, 2023 09:17 AM Reporting Lab: [facility] [id number] Performing Lab: [facility] [id number] CHOLESTEROL 149 mg/dL 0-200 TRIGLYCERIDE 129 mg/dL 0-150 CALCULATED LDL 77 mg/dL See Interp HDL(New) 46 mg/dL > 40 Nov 06, 2023 09:27 AM [facility] RENAL PANEL PLASMA Specimen Type: PLASM A Comment: No hemolysis noted. Ordering Provider: JAYJAY LEE Report Released Date/Time: Nov 06, 2023 09:17 AM Reporting Lab: [facility] [id number] Performing Lab: [facility] [id number] CREATININE 1.07 mg/dL 0.70-1.30 UREA NITROGEN 10.6 mg/dL 9.0-25.0 GLUCOSE 111 mg/dL H 72-99 SODIUM 140 meq/L 136-145 POTASSIUM 4.3 meq/L 3.5-5.0 CHLORIDE 105 meq/L 98-107 CARBON DIOXIDE 26 meq/L 22-31 CALCIUM 9.1 mg/dL 8.4-10.4 PHOSPHOROUS 2.6 mg/dL 2.3-4.7 ALBUMIN 4.7 g/dL 3.4-5.0 EGFR (CKD-EPI 2020) 72.37 >60 Vital Signs: All taken on the encounter date This section contains inpatient and outpatient Vital Signs collected on the date of the Encounter. Date/Time Temperature Pulse Blood Pressure Respiratory Rate SP02 Pain Height Weight Body Mass Index Source Dec 04, 2023 09:46 AM 98.1 67 138/69 16 98 2 189.1 26 [facility] Encounter Notes: All associated encounter notes This section contains the clinical notes associated to the Encounter. Date/Time Encounter Note(s) Provider Source Dec 04, 2023 09:43 AM CARDIOLOGY OUTPATI ENT NOTE: LOCAL TITLE: CARDIOLOGY OUTPATIENT FOLLOW UP STL STANDARD TITLE: CARDIOLOGY OUTPATIENT NOTE DATE OF NOTE: DEC 04, 2023@09:43 ENTRY DATE: DEC 04, 2023@09:43:49 AUTHOR: JOSE ASCENCIO COSIGNER: URGENCY: STATUS: COMPLETED CARDIOLOGY OUTPATIENT FOLLOW UP STL Has ADDENDA [place] ST CARDIOLOGY SERVICE: FOLLOW-UP VISIT NOTE PRINCIPAL AND SECONDARY DIAGNOSES: # CAD s/p CABG 2013 # HTN # HLD # Hypothyroidism # PTSD # Spinal stenosis CARE TEAM: JOSE CHRISTIANSEN T INTERVAL HISTORY: Mr. Monroe is a 73 y/o [place] with PMH which includes CAD s/p CABG x 5 in 2014 at [facility], HLD, HTN, hypothyroidism, PTSD, spinal stenosis. He sees outside java designer Dr. Brooke and ADE Jordan at [facility]. Last clinic visit 12/04/2022. No interim ED visits or hospitalizations for cardiac issues. TODAY: He is accompanied by his Bakari. He reports that overall he feels about the same as he did a year ago. He is able to walk about 4 blocks. He notices some LH upon standing that lasts for 5-10 seconds then resolves. No syncope. He has intentionally lost about 10 lbs in the past year. Denies chest pain, chest tightness, SOB, leg swelling. He does not check BP at home. No recent nitro use Of note, a 12 point review of systems was performed; all other review of systems negative, except as listed in the interval history. PAST MEDICAL HISTORY: 1) Posttraumatic stress disorder 2) Hyperlipidemia ([facility] [id number]) 3) History of polyp of colon 4) CAD - Coronary Artery Disease ([facility] [id number]) 5) Hypothyroidism 6) Spinal stenosis 7) Pain in lower limb 8) History of coronary artery bypass grafting 9) Dyspnea on exertion 10) Benign prostatic hyperplasia 11) Allergic rhinitis 12) Prediabetes ([facility] [id number]) 13) Vertigo 14) HTN - Hypertension ([facility] [id number]) 15) Basal cell carcinoma of skin 16) Fall 17) Raised prostate specific antigen 18) Sleep apnea 19) Exposure to potentially hazardous substance 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 RINSE MOUTHPIECE FREQUENTLY TO PREVENT CLOGGING. USE 20 MINUTES PRIOR TO EXERTION. 2) AMLODIPINE BESYLATE 2.5MG TAB TAKE ONE TABLET BY ACTIVE MOUTH ONCE A DAY FOR HEART/BLOOD PRESSURE 3) ASPIRIN 81MG EC TAB TAKE ONE TABLET BY MOUTH ONCE A ACTIVE DAY FOR HEART OR CIRCULATION. TAKE WITH FOOD. 4) ATORVASTATIN CALCIUM 80MG TAB TAKE ONE-HALF TABLET BY ACTIVE MOUTH EVERY EVENING TO LOWER CHOLESTEROL 5) FLUOROURACIL 5% CREAM APPLY THIN FILM TO AFFECTED ACTIVE AREA(S) TWICE A DAY AVOID SUN EXPOSURE. FOLLOW DIRECTIONS CAREFULLY FOR PROPER HANDLING/DISPOSAL. 6) IPRATROPIUM BR 0.03% NASAL SPRAY USE 2 SPRAYS INTO ACTIVE NOSTRIL(S) THREE TIMES A DAY FOR ALLERGIES/NASAL SYMPTOMS. 7) LEVOTHYROXINE NA (SYNTHROID) 25MCG TAB TAKE ONE ACTIVE TABLET BY MOUTH EVERY MORNING BEFORE A MEAL FOR THYROID. TAKE 30 MINUTES BEFORE FOOD. TAKE SEPARATELY FROM ALL OTHER MEDICATIONS. 8) LORATADINE 10MG TAB TAKE ONE TABLET BY MOUTH ONCE A ACTIVE DAY ON EMPTY STOMACH 9) RANOLAZINE 500MG SA TAB TAKE ONE TABLET BY MOUTH ACTIVE TWICE A DAY FOR HEART. *SWALLOW WHOLE- DO NOT CRUSH,BREAK OR CHEW* Active Non-VA Medications Status 1) Non-VA ASCORBIC ACID 500MG TAB 500MG BY MOUTH ONCE A ACTIVE DAY 2) Non-VA CYANOCOBALAMIN 1000MCG TAB 2000MCG BY MOUTH ACTIVE ONCE A DAY 3) Non-VA MAGNESIUM GLUCONATE 500MG TAB 500MG BY MOUTH ACTIVE 4) Non-VA MULTIVITAMIN/MINERAL ANTIOXIDANT CAP/TAB 1 ACTIVE CAP/TAB BY MOUTH ONCE A DAY 13 Total Medications - All cardiac medications were reconciled during the visit. amlodipine 2.5 asa 81 atorva 40 ranolazine 500 PHYSICAL EXAM: Date Vital Measurement Qualifiers 12/04/2023 09:46 Temp F (C) 98.1 (36.7) Pulse 67 Respir 16 BP 138/69 Wt lbs (kg)[BMI] 189.1 (85.77)[26] Pain 2 POx (L/Min)(%) 98 GENERAL: Sclera anicteric, PERRLA, MMM NECK: Carotids were brisk without bruits. CHEST/LUNGS: Clear to auscultation bilaterally with no rales or wheezes. Good respiratory effort and excursion. HEART: S1 S2, RRR, no JVP ABDOMEN: Soft, nontender, BS positive x 4 quadrants EXTREMITIES: No lower extremity edema. Pedal pulses intact bilaterally NEUROLOGICAL: Alert and oriented x 3. Normal motor strength. PSYCHIATRIC: Mood and affect appropriate DIAGNOSTIC DATA: ###. ECHOCARDIOGRAM: -The echocardiogram was reviewed, with findings of: TTE 08/15/2021 1. Normal biventricular systolic function. 2. Normal diastolic function with normal left atrial filling pressure. 3. Normal chamber sizes. 4. The inferior vena cava is normal in size with normal inspiratory variation, which is consistent with estimated right atrial pressure of 5 mmHg. 5. No hemodynamically significant valvular abnormality. 6. No evidence of constriction. o TTE done 06/03/2021 showed EF 55-60%, trace MR ###. CARDIAC CATH: o LHC at [facility] in 05/2020 showed patent SVG to ramus, patent ESPINOZA to LAD, patent SVG to 1st right posterolateral and patent sequential SVG to right posterior descending. EF 60%. ###. ICD: n/a ###. LABORATORIES: COMPREHENSIVE METABOLIC PANEL SODIUM 140 mEq/L 11/06/2023 09:27 POTASSIUM 4.3 [...] 09:27 EGFR (CKD-EPI 2020) 72.37 11/06/2023 09:27 COMPLETE BLOOD COUNT WBC 6.1 10*3/uL 04/23/2023 09:54 RBC 4.44 [...] 09:54 BASOPHILS, ABSOLUTE 0.02 10*3/uL 04/23/2023 09:54 HGA1C: HGA1C 5.7 % 04/23/2023 09:54 LIPIDS TRIGLYCERIDE 129 mg/dL 11/06/2023 09:27 CHOLESTEROL 149 mg/dL 11/06/2023 09:27 HDL(New) 46 mg/dL 11/06/2023 09:27 CALCULATED LDL 77 mg/dL 11/06/2023 09:27 ASSESSMENT AND PLAN: Mr. Monroe is a 73 y/o with PMH which includes CAD s/p CABG x 5 in 2013 at [facility], HLD, HTN, hypothyroidism, PTSD, spinal stenosis. He is stable from cardiac standpoint and continues to follow with outside cardiolgoist. We will see him once a year in [facility] cardiology clinic to continue to prescribe his medications. No changes were made today. PLAN: # CAD s/p CABG 2013 o LHC 05/2020 with patent grafts as above, preserved LVF o has not had typical anginal symptoms in past o currently asymptomatic without angina or anginal equivalents o asa 81mg daily o atorvastatin 40mg daily o amlodipine 2.5mg daily (BB was stopped 06/15/2021 due to fatigue, SOB) o ranolazine 500mg bid o he has been intolerant of nitro due to severe headaches o weight loss and exercise, with goal of 30 min daily # HTN o encouraged home BP monitoring o medication as above # HLD o continue atorvastatin # Dispo o RTC 12 months Thank you for allowing us to participate in this [facility]. Please do not hesitate to call the HF team with any questions or concerns. /fer/ Jose Ascencio PA-C Cardiology Physician [employer]der [employer] Signed: 12/04/2023 12:49 Receipt Acknowledged By: 12/05/2023 11:03 /alessia BRADY MD, PhD 12/05/2023 ADDENDUM STATUS: COMPLETED I have reviewed the note by ADE Ascencio and have no further recommendations. /fer/ LUIS MIGUEL BRADY MD, PhD Signed: 12/05/2023 11:03 JOSE ASCENCIO [facility]
--- OUTSIDE RECORDS SUMMARY | 2024-11-26 13:07 | XMS_ITS ---
Author Name [facility] [place] Address [address] [place] [address] Care Team Providers Care Twenty One Dealer Name Role Phone LANETTE JOSE Primary Care [...] Name Patient's Relationship to Policy [place] AETNA [facility] (WNR) MEDICARE ADVANTAGE [facility] (WN) May 28, 2023 [id number] CHRISTOPHE MONROE PATIENT CAREMARK ([id number]) PRESCRIPT ION [facility] Nov 25, 2014 [id number] [phone] GILBERT MONROE PATIENT [facility] (STIL 11/25/20) PREFERRED PROVIDER ORGANIZAT ION (PPO[place] Nov 25, 2020 [id number] GILBERT MONROE PATIENT [facility] (STIL 11/25/20) PREFERRED PROVIDER [place]GANIZ[place] Nov 25, 2020 [id number] GILBERT MONROE PATIENT [facility] ([facility]) PRESCRIPT [place] May 28, 2010 [id number] [phone] GILBERT MONROE PATIENT Selected Encounter This section includes the information on record at [place] for the Encounter. Date/Time Encounter Type Encounter Description Reason Provider Source Nov 10, 2024 08:15 AM OFFICE O/P EST MOD 30 MIN PRIMARY CARE/MEDICINE ICD-10-CM I25.10 [place] heart disease of [place] coronary artery w/o ang JOSE Heart Encounter Template Text not used by [place] Assessments - Encounter Diagnoses This section includes the primary and secondary diagnoses documented for the Encounter. Date/Time Primary/Secondary Diagnosis Diagnosis Name Provider Source Nov 10, 2024 09:24 AM PRIMARY [place] heart disease of [place] coronary artery w/o TIFFANY Gray [facility] Nov 10, 2024 09:24 AM SECONDARY Allergic rhinitis, unspecified [facility] Nov 10, 2024 09:24 AM SECONDARY Basal cell carcinoma of skin, unspecified [facility] Nov 10, 2024 09:24 AM SECONDARY Benign prostatic hyperplasia with lower urinary tract symp [facility] Nov 10, 2024 09:24 AM SECONDARY Dizziness and giddiness [facility] Nov 10, 2024 09:24 AM SECONDARY Elevated prostate specific antigen [PSA] [facility] Nov 10, 2024 09:24 AM SECONDARY Essential (primary) hypertension [facility] Nov 10, 2024 09:24 AM SECONDARY Fall (on) (from) other stairs and steps, initial encounter [facility] Nov 10, 2024 09:24 AM SECONDARY Hyperlipidemia, unspecified [facility] Nov 10, 2024 09:24 AM SECONDARY Hypothyroidism, unspecified [facility] Nov 10, 2024 09:24 AM SECONDARY Pain in leg, unspecified [facility] Nov 10, 2024 09:24 AM SECONDARY Post-traumatic stress disorder, unspecified TIFFANY GUTIERREZ [facility] Nov 10, 2024 09:24 AM SECONDARY Prediabetes TIFFANY GUTIERREZ [facility] Nov 10, 2024 09:24 AM SECONDARY Presence of aortocoronary bypass graft TIFFANY GUTIERREZ [facility] Nov 10, 2024 09:24 AM SECONDARY Shortness of breath TIFFANY GUTIERREZ [facility] Nov 10, 2024 09:24 AM SECONDARY Sleep apnea, unspecified TIFFANY GUTIERREZ [facility] Nov 10, 2024 09:24 AM SECONDARY Spinal stenosis, site unspecified TIFFANY GUTIERREZ [facility] Plan of Treatment: Future Appointments (+ 6 months) and Future Tests (+/- 45 days) The Plan of Treatment section includes future care activities for the patient from all [place] [facility]. This section includes future appointments and future orders which are active, pending or scheduled. Future Appointments This section includes appointments that were scheduled to occur 6 months from the date of the Encounter, up to a maximum of 20 appointments. The data comes from all [facility] facilities. Appointment Date/Time Appointment Type Appointme nt Facility Name Dec 02, 2024 10:00 AM AMBULATORY - MEDICINE [facility] Jan 28, 2025 08:00 AM AMBULATORY - SURGERY [facility] Feb 25, 2025 08:00 AM AMBULATORY - SURGERY [facility] Vital Signs: All taken on the encounter date This section contains inpatient and outpatient Vital Signs collected on the date of the Encounter. Date/Time Temperature Pulse Blood Pressure Respiratory Rate SP02 Pain Height Weight Body Mass Index Source Nov 10, 2024 09:02 AM 132/78 [facility] Nov 10, 2024 08:32 AM 97 63 144/[address] [facility] Social History: Smoking Status (Most current) and Tobacco Use (All prior to encounter date) This section includes the most current, and the historical, smoking and tobacco- related health factors from the [facility] facility where the Encounter took place. Current Smoking Status This section includes the most current smoking, or tobacco-related health factor, from the [facility] where the Encounter took place. Date/Time Current Smoking Status Comment Enrrique ramirez Nov 06, 2023 08:15 AM VA-TOBACCO QUIT 15 YRS OR MORE [facility] Tobacco Use History This section includes a history of the smoking, or tobacco-related health factors, that were collected on or before the date of the Encounter. The data comes from the [facility] where the Encounter took place. Date/Time Smoking Status/Tobacco Use Comment F kiarra Nov 06, 2023 08:15 AM VA-TOBACCO QUIT 15 YRS OR MORE [facility] October 10, 2022 08:30 AM VA-TOBACCO NEVER USED [facility] Jul 08, 2021 09:30 AM VA-TOBACCO FORMER USER [facility] Jul 08, 2021 09:30 AM VA-TOBACCO QUIT 15 YRS OR MORE [facility] Encounter Notes: All associated encounter notes This section contains the clinical notes associated to the Encounter. Date/Time Encounter Note(s) Provider Source Nov 10, 2024 08:34 AM PRIMARY CARE NOTE: LOCAL TITLE: PRIMARY CARE PROVIDER ESTABLISHED VISIT [facility] STANDARD TITLE: PRIMARY CARE NOTE DATE OF NOTE: NOV 10, 2024@08:34 ENTRY DATE: NOV 10, 2024@08:35:04 AUTHOR: SAMY GUTIERREZ EXP COSIGNER: JOSE GAMA URGENCY: STATUS: COMPLETED PRIMARY CARE PROVIDER ESTABLISHED VISIT [facility] Has ADDENDA ESTABLISHED PATIENT [id number]: REASON FOR VISIT/CHIEF COMPLAINT: Regularly scheduled PCP follow up HPI: 74 y/o WM in the office for care and management of chronic conditions Hosp/sx/ED/UC visits: No Current concerns: None NON-VA PROVIDERS: Prvt PCP, Cardiology Falls: No 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 CAD -(2020) s/p LHC w/ patent grafts, (2013) s/p CABG x5 -(2021) TTE - EF 55-60%, trace MR -Denies CP, SOB, dizziness, LE edema -Taking asa 81mg daily, atorvastatin 40mg daily, ranolazine 500mg bid, and NTG PRN --Hasn't required NTG in many years, but always keeps them available -F/B PRVT & VA CARDs 2. Chronic MORA -Taking Albuterol PRN -Intermittent Dyspnea, Has used the inhaler less than 10 puffs in 6 months -Sometimes coughs, then gags, usually when he forgets the inhaler -Happens more when hot, but very minimally 3. HLD TRIGLYCERIDE 92 mg/dL 05/13/2024 10:08 CHOLESTEROL 173 mg/dL 05/13/2024 10:08 HDL(New) 42 mg/dL 05/13/2024 10:08 CALCULATED LDL 113 mg/dL 05/13/2024 10:08 -Taking Atorvastatin 40 mg (denies myalgias) -Diet and exercise 4. HTN -Taking Amlodipine 2.5mg daily -Pt watching salt intake 5. prediabetes HGA1C 5.6 % 05/13/2024 10:08 HGA1C 5.7 % 04/23/2023 09:54 HGA1C 5.8 % 10/14/2021 09:55 HGA1C 6.0 % 07/08/2021 13:12 -Discussed getting back on his diet and exercise 150 mins per week 6. hypothyroidism -Denies hot/cold symptoms, fatigue -Last TSH: 3.87(05/20) WNL -Taking Levothyroxine 25 MCG daily 7. AR -Denies allergy symptoms -Taking Loratadine, IPRATROPIUM BR 0.03% nasal spray TID -Changing airfilter Q3 months -Recently bought an air ionizer 8. VINAY -Last Sleep Study - (2021)- mild sleep apnea -AHI<5; Did not qualify for CPAP -No c/o insominia or sleep disturbance -No spousal c/o snoring 9. BPH/Elevated PSA -PSA: PROST. SPECIFIC AG.(PB-STL) 2.172 ng/mL 05/13/2024 10:08 -Continued issues w/ nightitme awakening to urinate, 5X a night --Stopped Tamsulosin, taking Flax seed -Has been using toilet hygiene as able 10. PTSD -Denies SI/HI -Pt declines MH support, states it is controlled on his own -Pt usually speaks w/ son 11. lower limb pain/spinal stenosis -F/B VA POD -Uses compression socks, Lumbar YANELI (minimal effect), PT/CHIRO (declines), custom orthotic inserts (helps tremendously) -Lidocaine patch prn, diclofenac gel prn -(2021) BHARATHI-WNL 12. hx of falls -No falls, but catching himself before he falls 6X in 6 months -Intermittent cane use 13. vertigo/L esotropia -Usually takes his time doing things, resolves fairly quickly -Prism glasses prn, AD (cane) 14. BCC/AK/SK/Lentignes/hx of NMSC -F/B VA Derm, last visit Apr 2024 -Monthly self check, yearly provider checks -Use of sunscreen, hats, and long sleeves SOURCE(S) OF HISTORY: Patient [facility] records reviewed and summarized PAST MEDICAL HISTORY: 1) Posttraumatic stress disorder 2) Hyperlipidemia ([facility] [id number]) 3) History of polyp of colon 4) CAD - Coronary Artery Disease ([facility] [id number]) 5) Hypothyroidism 6) Spinal stenosis 7) Pain in lower limb 8) History of coronary artery bypass grafting comment: CABG X5 2013 9) Dyspnea on exertion 10) Benign prostatic hyperplasia 11) Allergic rhinitis 12) Prediabetes ([facility] [id number]) 13) Vertigo 14) HTN - Hypertension ([facility] [id number]) 15) Basal cell carcinoma of skin 16) Fall 17) Raised prostate specific antigen 18) Sleep apnea 19) Exposure to potentially hazardous substance FAMILY HISTORY: SOCIAL HISTORY: NICOTINE: 11/07/2024 Former Cigarette User ETOH: ILLICIT DRUGS: 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 Handwritten corrections, additions and/or deletions were made [...] SPRAY USE 2 SPRAYS INTO ACTIVE NOSTRIL(S) TWICE DAILY NEEDED Indication: FOR ALLERGIC RHINITIS 5) LEVOTHYROXINE NA 25MCG TAB TAKE ONE TABLET BY MOUTH EVERY ACTIVE (S) MORNING BEFORE A MEAL FOR THYROID. TAKE 30 MINUTES BEFORE FOOD. TAKE SEPARATELY FROM ALL OTHER MEDICATIONS. 6) LIDOCAINE 5% PATCH APPLY 1 PATCH TO SKIN SITE ONCE A DAY ACTIVE (S) APPLY PATCH AND PRESS FIRMLY FOR 10-15 [...] *SWALLOW WHOLE- DO NOT CRUSH,BREAK OR CHEW* Pending Outpatient Medications Status 1) ASPIRIN 81MG CHEW TAB CHEW AND SWALLOW ONE TABLET BY MOUTH PENDING ONCE A DAY (TAKE WITH FOOD) Indication: FOR CARDIOVASCULAR DISEASE Active Non-VA Medications Status 1) Non-VA ASCORBIC ACID 500MG TAB 500MG BY MOUTH ONCE A DAY ACTIVE 2) Non-VA CYANOCOBALAMIN 1000MCG TAB 2000MCG BY MOUTH ONCE A ACTIVE DAY 3) Non-VA FLAX SEED OIL CAP/TAB 1 CAPSULE BY MOUTH ONCE A DAY ACTIVE Indication: UNKNOWN 4) Non-VA MAGNESIUM GLUCONATE 500MG TAB 500MG BY MOUTH ACTIVE 5) Non-VA MULTIVITAMIN/MINERAL ANTIOXIDANT CAP/TAB 1 CAP/TAB BY ACTIVE MOUTH ONCE A DAY 6) Non-VA MULTIVITAMIN/MINERAL ANTIOXIDANT CAP/TAB 1 CAP/TAB BY ACTIVE MOUTH ONCE A DAY Indication: FOR NUTRITION/DIETARY SUPPLEMENTATION 16 Total Medications DATA REVIEW: HGA1C 5.6 % 05/13/2024 10:08 Lipid Panel: TRIGLYCERIDE 92 mg/dL 05/13/2024 10:08 CHOLESTEROL 173 mg/dL 05/13/2024 10:08 HDL(New) 42 mg/dL 05/13/2024 10:08 CALCULATED LDL 113 mg/dL 05/13/2024 10:08 CMP: SODIUM 139 mEq/L 05/13/2024 10:08 POTASSIUM 4.5 mEq/L 06/13/2024 10:03 CHLORIDE 106 mEq/L 05/13/2024 10:08 UREA NITROGEN 17.8 mg/dL 05/13/2024 10:08 CREATININE 1.23 mg/dL 05/13/2024 10:08 CALCIUM 9.9 mg/dL 05/13/2024 10:08 PROTEIN 6.7 g/dL 05/13/2024 10:08 ALBUMIN 4.5 g/dL 05/13/2024 10:08 ALKALINE PHOSPHATASE 84 U/L 05/13/2024 10:08 ALT/SGPT 23 U/L 05/13/2024 10:08 AST/SGOT 20 U/L 05/13/2024 10:08 TOTAL BILIRUBIN 0.6 mg/dL 05/13/2024 10:08 CARBON DIOXIDE 26 mEq/L 05/13/2024 10:08 GLUCOSE 109 H mg/dL 05/13/2024 10:08 EGFR (CKD-EPI 2020) 61.22 05/13/2024 10:08 CBC: WBC 5.2 10*3/uL 05/13/2024 10:08 RBC 4.37 10*6/uL 05/13/2024 10:08 HGB 15.1 g/dL 05/13/2024 10:08 HCT 42.8 % 05/13/2024 10:08 MCV 97.9 fL 05/13/2024 10:08 MCH 34.6 H pg 05/13/2024 10:08 MCHC 35.3 g/dL 05/13/2024 10:08 RDW 11.2 L % 05/13/2024 10:08 PLT 191 10*3/uL 05/13/2024 10:08 MPV 9.3 fL 05/13/2024 10:08 NEUTROPHILS, AUTO % 61 % 05/13/2024 10:08 LYMPHOCYTES, AUTO % 28 % 05/13/2024 10:08 MONOCYTES, AUTO % 8 % 05/13/2024 10:08 EOSINOPHILS, AUTO % 3 % 05/13/2024 10:08 BASOPHILS, AUTO % 0 % 05/13/2024 10:08 NEUTROPHILS, ABSOLUTE 3.15 10*3/uL 05/13/2024 10:08 LYMPHOCYTES, ABSOLUTE 1.42 10*3/uL 05/13/2024 10:08 MONOCYTES, ABSOLUTE 0.39 10*3/uL 05/13/2024 10:08 EOSINOPHILS, ABSOLUTE 0.17 10*3/uL 05/13/2024 10:08 BASOPHILS, ABSOLUTE 0.02 10*3/uL 05/13/2024 10:08 PSA: PROST. SPECIFIC AG.(PB-STL) 2.172 ng/mL 05/13/2024 10:08 Result: Acceptable Follow-up Action: Re check prior to next visit. Data results reviewed with patient and/or caregiver. REVIEW OF SYSTEMS: All systems reviewed and otherwise negative unless noted in HPI VITALS Temperature: 97 F [36.1 C] (11/10/2024 08:32) BP: 144/77 (11/10/2024 08:32) Pulse: 63 (11/10/2024 08:32) Resp: 16 (11/10/2024 08:32) PulsOx: 97% (11/10/2024 08:32) Pain: 2 (05/13/2024 08:26) Weight: Measurement DT WEIGHT LB(KG)[BMI] 05/13/2024 08:26 203(92.08)[28*] 12/04/2023 09:46 189.1(85.77)[26] PHYSICAL EXAM Gen: Patient pleasant, appears adequately nourished, appropriately dressed, well-groomed HEENT: Normocephalic; PERRLA, EOM, sclera white, cornea clear, conjunctiva pink. TM pearly rodrigez, + light reflex. Throat without erythema or exudate Neck: supple, no lymphadenopathy, no thyroidmegaly, or carotid bruits Lungs: Lungs CTA, normal RR, no increased WOB noted Heart: RRR S1S2-m/r/g Abdomen: soft, non-tender, no hepatosplenomegaly, BS pos X4 neuro: A+OX4, no focal deficits, ambulates with steady gait : deferred Psych: good affect, denies si/hi Back: Normal curvature, no crepitus/step-offs noted to C/T/L-spine, Equal shoulder and hip symmetry ext: no edema, + pedal pulses skin: warm and dry, normal color for race, no rashes or skin lesions ASSESSMENT/PLAN: 1. CAD -Continue asa 81mg daily, atorvastatin 40mg daily, ranolazine 500mg bid, and NTG PRN -Continue F/U with PRVT & VA CARDs 2. Chronic MORA -Continue Albuterol PRN 3. HLD TRIGLYCERIDE 92 mg/dL 05/13/2024 10:08 CHOLESTEROL 173 mg/dL 05/13/2024 10:08 HDL(New) 42 mg/dL 05/13/2024 10:08 CALCULATED LDL 113 mg/dL 05/13/2024 10:08 -Continue Atorvastatin 40 mg (denies myalgias) -Diet and exercise regimen as current 4. HTN -Continue Amlodipine 2.5mg daily -Minimize salt intake as discussed 5. prediabetes HGA1C 5.6 % 05/13/2024 10:08 HGA1C 5.7 % 04/23/2023 09:54 HGA1C 5.8 % 10/14/2021 09:55 HGA1C 6.0 % 07/08/2021 13:12 -Diet and exercise regimen as current -Discussed low carb diet 6. hypothyroidism -Last TSH: 3.87(05/20) WNL -Continue Levothyroxine 25 MCG daily 7. AR -Continue Loratadine, IPRATROPIUM BR 0.03% nasal spray TID -Change airfilter Q3 months and continued use of air ionizer 8. VINAY -Continue current regimen, notify the office of any changes/concerns 9. BPH/Elevated PSA -PSA: PROST. SPECIFIC AG.(PB-STL) 2.172 ng/mL 05/13/2024 10:08 -Continue Flax seed -Continued toilet hygiene -Discussed additional medication and non-medication intervention, pt declined 10. PTSD -Denies SI/HI -Pt declines MH support 11. lower limb pain/spinal stenosis -F/B VA POD -Continue custom orthotic insert usage -Lidocaine patch prn, diclofenac gel prn 12. hx of falls -Discussed constant cane usage 13. vertigo/L esotropia -Continue Prism glasses prn, AD (cane) -Pt given number to make eye appt for new glasses 14. BCC/AK/SK/Lentignes/hx of NMSC -Continue F/U with [facility] Derm -Continue monthly self check -Discussed use of sunscreen, hats, and long sleeves #Labs Ordered: Next visit #Tests: None #RTC: 6 months PREVENTION & SCREENING: Colonoscopy: No data available for: COLONOSCOPY CONSULT REPORT STL SLT - Lab Tests Selected No selection items chosen for this component. AAA: Date Procedure CPT Status Case # 06/05/2022 US ABD AORTA (AAA) [id number] Verified 88 NORMAL CALIBER ABDOMINAL AORTA WITH NO FOCAL ANEURYSM No Impressions found LDCT: LOW DOSE CHEST CT No data available for: ZZLDCT LUNG CANCER SCREENING No data available for: LDCT LCS 1, 3 OR 6 MONTH FOLLOW UP ZZLDCT LUNG CANCER SCREENING LDCT LUNG CANCER SCREENING No selection items chosen for this component. PSA: Collection DT Specimen Test Name Result Units Ref Range 05/13/2024 10:08 SERUM PSA 2.172 ng/mL 0.000 - 4.000 Comment: The listed sex of this patient may not be a typical Comment: indication for this test. Therefore, reference ranges or Comment: interpretive criteria listed may not be valid. Clinical correlation Comment: suggested. 04/23/2023 09:54 SERUM PSA 2.751 ng/mL 0.000 - 4.000 Comment: The listed sex of this patient may not be a typical Comment: indication for this test. Therefore, reference ranges or Comment: interpretive criteria listed may not be valid. Clinical correlation Comment: suggested. 07/08/2021 12:34 SERUM PSA 3.436 ng/mL 0.000 - 4.000 09/21/2009 10:32 SERUM PSA 1.078 ng/ml 0 - 4 [facility] Bone Density No data available for: NM BONE DENSITY(DXA), AXIAL SKELETON BONE DENSITY (RAD) -P BONE DENSITY-P LAB SURGICAL PATHOLOGY No data available [facility] FACTORS SELECTED No data available for: Women's Health Outside Abnormal ([facility]) Pap Women's Health Outside Abnormal (Other) Pap Women's Health Outside Normal Pap Immunizations ADMINISTERED Immunization Series Date Facility Reaction Info COVID-19 (PFIZER), MRNA, LNP-S, * 1 04/11/2022 [facility]* <C> COVID-19 (PFIZER), MRNA, LNP-S, * 3 05/09/2021 [facility]* COVID-19 (PFIZER), MRNA, LNP-S, * 2 [facility]* COVID-19 (PFIZER), MRNA, LNP-S, * 1 07/16/2020 [facility]* COVID-19 (PFIZER), MRNA, LNP-S, * 3 10/14/2021 . [facility]* <C> COVID-19 (PFIZER), MRNA, LNP-S, * 1 04/23/2023 . [facility]* INFLUENZA, HIGH-DOSE, QUADRIVALE* C 02/23/2023 . [facility]* INFLUENZA, HIGH-DOSE, TRIVALENT,* C 02/22/2024 [facility]* INFLUENZA, UNSPECIFIED FORMULATI* 02/02/2022 [facility]* INFLUENZA, UNSPECIFIED FORMULATI* 02/10/2021 [facility]* INFLUENZA, UNSPECIFIED FORMULATI* 05/28/2015 [place] * INFLUENZA, UNSPECIFIED FORMULATI* 04/05/2012 [facility]* INFLUENZA, UNSPECIFIED FORMULATI* Private P* NOVEL [id number], ALL FOR* Visiting * PNEUMOCOCCAL POLYSACCHARIDE PPV23 05/13/2024 [facility]* PNEUMOCOCCAL POLYSACCHARIDE PPV23 2013 PCP TDAP 05/13/2024 [facility]* TDAP Private P* ZOSTER RECOMBINANT 2 06/04/2020 [facility]* <C> ZOSTER RECOMBINANT 1 03/26/2020 [facility]* <C> CONTRAINDICATED No data available REFUSED ======= Immunization Date Facility Info PNEUMOCOCCAL CONJUGATE, UNSPECIF* 04/23/2023 [facility]* <I> TDAP 11/06/2023 [facility]* <I> TDAP 04/23/2023 [facility]* <I> <C> See the Detailed Immunizations Health [...] side effects of prescribed medication and treatments. [place] verbalizes understanding and is in agreement with the plan of care. Patient was instructed to keep all scheduled appointments and contact family support coordinator for any additional problems. THE SUPERVISING PHYSICIAN FOR THIS PATIENT ENCOUNTER IS [facility] Suicide Screen - V: C-SSRS Screening Bath-Suicide Severity Rating Scale (C-SSRS Screener) 1. Over the past month, have you wished you were or wished you could go to sleep and not wake up? No 2. Over the past month, have you had any actual thoughts of killing yourself? No 3. Over the past month, have you been thinking about how you might do this? Response not required due to responses to other questions. 4. Over the past month, have you had these thoughts and had some intention of acting on them? Response not required due to responses to other questions. 5. Over the past month, have you started to work out or worked out the details of how to kill yourself? Response not required due to responses to other questions. 6. If yes, at any time in the past month did you intend to carry out this plan? Response not required due to responses to other questions. 7. In your lifetime, have you ever done anything, started to do anything, or prepared to do anything to end your life (for example, collected pills, obtained a gun, gave away valuables, went to the roof but didn't jump)? No 8. If YES, was this within the past 3 months? Response not required due to responses to other questions. RHS Screen - VS: RHS Screen Session Format: Face to Face Environmental Check Upon inquiry, the individual reports that the environment is safe to proceed. Informed Consent to Screen and Document The individual consents to proceed with screening. RHS screen was conducted with the individual's consent utilizing a standardized copyrighted tool. Education and resources/referrals provided as needed. EDUCATION: The individual indicated readiness to learn. Education offered during this session as noted above. The individual indicated understanding by asking relevant questions and making appropriate comments. No barriers to learning were observed or identified. Alcohol Use Screen (AUDIT-C) - V: Alcohol Screen: SCREEN FOR ALCOHOL (AUDIT-C) An alcohol screening test (AUDIT-C) was negative (score=1). 1. How often did you have a drink containing alcohol in the past year? Consider a drink to be a 12 ounce can or bottle of regular beer, 8 ounces of malt liquor, a 5 ounce glass of table wine, or a 1.5 ounce shot of liquor (like scotch, gin, or vodka). Monthly or less 2. How many drinks containing alcohol did you have on a typical day when you were drinking in the past year? Zero drinks 3. How often did you have six or more drinks on one occasion in the past year? Never Depression Screening - V: Perform PHQ-2 A PHQ-2 screen was performed. The score was 0 which is a negative screen for depression. Over the past two weeks, how often have you been bothered by the following problems? 1. Little interest or pleasure in doing things Not at all 2. Feeling down, depressed, or hopeless Not at all HTN Assess for Elevated BP>=140/90 - N,P,PH: Repeat blood pressure: 132/78 The patient's blood pressure is usually adequately controlled. No medication changes are indicated at this time. Frail/Elderly Screen: ADL Screen - Reich Index of [place] in Activities of Daily Living Bathing: (3 Points) Receives no assistance (gets in and out of tub by self, if tub is usual means of bathing) Dressing: (3 Points) Gets clothes and gets completely dressed without assistance. Toileting: (3 Points) Goes to toilet room, cleans self, and arranges clothes without assistance (may use object for support such as cane, walker, or wheelchair, and may manage own night bedpan or commode, emptying same next morning) Transferring: (3 Points) Moves in and out of bed and in and out of chair without assistance (may be using object for support, such as cane or walker) Continence: (3 Points) Controls urination and bowel movement completely by self Feeding: (3 Points) Feeds self without assistance Total Score: 18 Points 18 = High (patient independent) 6 = Low (patient very dependent) Falls Screen: No falls within the past 12 months. /fer/ SAMY GUTIERREZ DNP, STORE CLERK-C, ASSOCIATE DEAN NURSE PRACTITIONER RESIDENT Signed: 11/10/2024 09:24 /fer/ KENAN Romero NURSE PRACTITIONER Cosigned: 11/10/2024 09:53 11/10/2024 ADDENDUM STATUS: COMPLETED I have seen this with the CIRCUS PERFORMER resident. I have participated in developing the plan of care, and reviewed medications, lab, and any radiology reports. The concurs with the plan of care. /fer/ OSIRIS Romero-CHARITY NURSE PRACTITIONER Signed: 11/10/2024 09:53 [facility]Y GUTIERREZ [facility]
--- OUTSIDE RECORDS SUMMARY | 2024-11-26 13:30 | XMS_ITS | Encounter Summary ---
Author Organization [facility] Address Formerly [facility] [place] [address] Care Team Providers Care Water And Sewer Systems Superintendent Name Role Phone Toni Stout MD Primary Care Provider [phone] Shashi Brooke MD Unavailable [phone] Patsy Jordan APRN, NP-C Unavailable [phone] Hosea Contreras MD Primary Care Provider [phone] Keisha Gomez NP Unavailable [phone] Karyn Stubbs ANP-BC Unavailable +[phone] Juventino Torrez MD Unavailable [phone] Majo Gold MD Unavailable Encounter Details Date Type Department Care Team (Late st Contact Info) Description 03/27/2016 Abstract [facility] [address] [place] [address] Shashi Brooke MD [address] [place] [phone] Social History Tobacco Use Types Packs/Day Years Used Date Smoking Tobacco: Former Alcohol Use Standard Drinks/Week Comments No 0 (1 standard drink = 0.6 oz pur e alcohol) Sex and Gender Information Value Date Recorded Sex Assigned at Not on file Legal Sex Male 1:24 AM CDT Gender Identity Not on file Sexual Orientation Not on file documented as of this encounter Plan of Treatment Upcoming Encounters Date Type Department Care Team (Late st Contact Info) Description 12/31/2024 10:30 AM CDT Office Visit [facility]-[address] [place] [phone] Karyn Stubbs, [facility]- [address] [place] [address] documented as of this encounter Procedures Procedure Name Priority Date/Time Associated Diagnosis Comments BASIC METABOLIC PANEL Routine 03/25/2016 documented in this encounter Results * BASIC METABOLIC PANEL (03/25/2016) SODIUM S/P/B 142 POTASSIUM S/P/B 4.3 CO2 26 CHLORIDE S/P/B 106 GLUCOSE 101 CALCIUM S/P/B 8.6 BUN 17 CREATININE S/P/B 1.26 03/25/2016 us Doc [facility] Abstract LABORATORY Final Result documented in this encounter Visit Diagnoses Not on filedocumented in this encounter Additional Health Concerns Infection Onset Date Last Indicated Resolved Time COVID-19 Rule Out 06/05/2020 06/05/2020 06/06/2020 4:31 PM WET END TESTER documented as of this encounter Care Teams Water And Sewer Systems Superintendent Relationship Specialty Start Date End Date Toni Stout MD [address] [place] [phone] PCP - General FAMILY PRACTICE 02/16/16 05/30/20 Hosea Contreras MD [address] [place] [phone] PCP - General FAMILY PRACTICE 05/31/20 Shashi Brooke MD [address] [place] [address] [employer] S[employer] Et[employer] Developer CARDIOVASCULAR DISEASE 02/16/16 09/09/23 Patsy Jordan, GRAVEL HAULER, [place]UGBO[place] MATE-C [address] [facility] [address] [place] [address] NURSE PRACTITIONER 05/25/20 09/09/23 Keisha Gomez, TUGBOAT MATE [address] [place] [address] NURSE PRACTITIONER 07/11/21 Karyn Stubbs, ANP- [address] [place] [address] Nurse Practitioner NURSE PRACTITIONER ADULT HEALTH 09/10/23 Juventino Torrez MD [address] [place] [address] INTERVENTIONAL CARDIOLOGY 09/10/23 Majo Gold MD [address] [place] [phone] Consulting Physician CARDIOVASCULAR DISEASE 11/06/24 documented as of this encounter
--- OUTSIDE RECORDS SUMMARY | 2024-11-26 13:30 | XMS_ITS | Clinical Summary ---
Author Organization [facility] Address [address] [place] [address] Care Team Providers Care Rail Assembler Name Role Phone Toni Stout MD Primary Care Provider [phone] Source Comments [facility],non-owned Affiliates and Associated Physician Practices is amultiple site organization consisting of ambulatory clinics and hospital sitesin [place], [place], [place]. This disclosure is being madepursuant to the Care Everywhere program and may not contain all information available regarding this patient. 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
--- OUTSIDE RECORDS SUMMARY | 2024-11-26 13:30 | XMS_ITS | Clinical Summary ---
Author Organization [facility] Address [address] [place] [address] Care Team Providers Care Manufacturing Plant Manager Name Role Phone Hosea Contreras MD Primary Care Provider Keisha Gomez NP Unavailable [phone] Karyn Stubbs ANP-BC Unavailable [phone] Juventino Torrez MD Unavailable [phone] Majo Gold MD Unavailable Allergies Active Allergy Reactions Criticality Noted Date Comments Rosuvastatin Joint Pain 02/07/2019 Isosorbide Nitrate Dizziness 06/21/2021 Medications aspirin 81 MG chewable tablet Chew 1 tablet (81 mg total) by mouth daily. 4 Active Coenzyme Q10 (CO Q-10) 400 MG Cap Take 400 mg by mouth daily. 4 Active levothyroxine 25 MCG tablet Take 1 tablet (25 mcg total) by mouth daily. 4 Active ipratropium 0.03 % nasal spray ipratropium bromide 21 mcg (0.03 %) nasal spray TWO SPRAYS IN EACH NOSTRIL TWICE DAILY 1 Active nitroglycerin 0.[address] 1 tablet (0.4 mg total) under the tongue every 5 (five) minutes as needed. 25 tablet 1 2 Active amLODIPine 2.5 MG tablet Take 1 tablet (2.5 mg total) by mouth daily. 90 tablet 3 2 Active Ranolazine ER 500 MG Pack Take 1 tablet by mouth 2 (two) times daily. 2 Active Magnesium 500 MG Tab Take 1 tablet by mouth daily. 2 Active atorvastatin (LIPITOR) 40 MG tablet Take 1 tablet (40 mg total) by mouth nightly at bedtime. 2 Active NON FORMULARY TPS topical pain cream as needed Active Ascorbic Acid (VITAMIN C) 500 MG Cap Take 500 mg by mouth. 4 Active Cyanocobalamin 1000 MCG Cap Take 2,000 mcg by mouth. 4 Active loratadine (CLARITIN) 10 MG tablet Take 1 tablet (10 mg total) by mouth. 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 Actinic keratosis Agent orange exposure Family History Relation Status Comments Brother CAD Father (Age 72) Lead poison Mother (Age 72) Cancer Social History Tobacco Use Types Packs/Day Years Used Date Smoking Tobacco: Former Smokeless Tobacco: Never Alcohol Use Standard Drinks/Week Comments Yes 0 (1 standard drink = 0.6 oz pur e alcohol) 0-1 per week Sex and Gender Information Value Date Recorded Sex Assigned at Not on file Legal Sex Male 1:24 AM CDT Gender Identity Not on file Sexual Orientation Not on file Last Filed Vital Signs Vital Sign Reading Time Taken Comments Blood Pressure 133/72 01/04/2024 10:16 AM CDT Pulse 69 01/04/2024 10:16 AM CDT Temperature 36.6 C (97.9 F) 03/23/2023 9:18 AM CDT Respiratory Rate 16 01/04/2024 10:16 AM CDT Oxygen Saturation 95% 01/04/2024 10:16 AM CDT Inhaled Oxygen Concentration - - Weight 87.2 kg (192 lb 3.2 oz) 01/04/2024 10:16 AM CDT Height 180.3 cm (5' 11) 01/04/2024 10:16 AM CDT Body Mass Index 26.81 01/04/2024 10:16 AM CDT Plan of Treatment Upcoming Encounters Date Type Department Care Team (Late st Contact Info) Description 12/31/2024 10:30 AM CDT [facility] [address] [place] [address] [place] [address] Karyn Stubbs, ANP- [address] [place] [address] Health Maintenance Due Date Last Done Comments Hepatitis C 1968 DTaP, Tdap and Td Vaccines (1 - Tdap) 1967 AAA SCREENING 2013 Annual Medicare Wellness Visit 2013 Pneumococcal Vaccine: 50+ Years (2 of 2 - PCV) 2014 2013 ASCVD LDL 06/04/2021 06/04/2020, 05/0 05/2019, 05/04/2016, Additional history exists RSV Immunization or 60+ Years (1 - 1-dose 75+ series) 2023 COVID-19 Vaccine ( season) 2024 04/23/2023, 04/11/2022, 10/14/2021, Additional history exists Zoster Vaccines Completed 06/04/2020, 03/26/2020 Colorectal Cancer Screening Colonoscopy (10 Years) Discontinued 03/23/2023, 03/23/2023 Meningococcal B Vaccine Aged Out No l onger eligible based on patient's age to complete this topic Meningococcal Vaccine Aged Out No roger wes eligible based on patient's age to complete this topic RSV Immunizations Under 20 Months Aged Out No longer eligible based on patient's age to complete this topic Procedures Procedure Name Priority Date/Time Associated Diagnosis Comments COLONOSCOPY 03/23/2023 6:47 AM CDT LIPID PANEL (OUTSIDE LAB) Routine 06/04/2020 from Last 3 Months or Most Recently Relevant to Health Maintenance Results * Colonoscopy (03/23/2023 6:47 AM CDT) us Jovani Betts MD GI PROCEDURE ORDERABLES Final Result * LIPID PANEL (OUTSIDE LAB) (06/04/2020) CHOLESTEROL 156 TRIGLYCERIDES 115 HDL 38 LDL (CALCULATED) 97 VLDL CALCULATION 21 06/04/2020 Doc [facility] Abstract LAB-OUTSIDE/ABSTRACTED Final Result from Last 3 Months or Most Recently Relevant to Health Maintenance Insurance [employer] Advance Directives Documents on File Type Date Recorded Patient Media Sales Representative Expl anation Advance Directives and Livin g Will 03/22/2016 ADVANCE DIRECTIVE Advance Directives and Livin g Will 06/08/2014 ADVANCE DIRECTIVE Advance Directives and Livin g Will 04/28/2014 ADVANCE DIRECTIVE * Full Code (Latest Code Status on File) Date Activated Date Inactivated Comments 06/08/2020 11:13 AM 06/08/2020 6:15 PM Care Teams Manufacturing Plant Manager Relationship Specialty Start Date End Date Hosea Contreras MD [address] [place] [phone] PCP - General FAMILY PRACTICE 05/31/20 Keisha Gomez WELDING TEACHER [address] [place] [address] NURSE PRACTITIONER 07/11/21 Karyn Stubbs [facility] [address] [place] [address] Nurse Practitioner NURSE PRACTITIONER ADULT HEALTH 09/10/23 Juventino Torrez MD [address] [place] [address] INTERVENTIONAL CARDIOLOGY 09/10/23 Majo Gold MD [address] [place] [address] Consulting Physician CARDIOVASCULAR DISEASE 11/06/24
--- OUTSIDE RECORDS SUMMARY | 2024-11-26 13:30 | XMS_ITS | Encounter Summary ---
Author Organization [facility] Address [address] [place] [address] Care Team Providers Care Consulting Sales Executive Name Role Phone Toni Stout MD Primary Care Provider [phone] Shashi Brooke MD Unavailable [phone] Patsy Jordan APRN, NP-C Unavailable Hosea Contreras MD Primary Care Provider [phone] Keisha Gomez NP Unavailable [phone] Karyn Stubbs ANP-BC Unavailable [phone] Juventino Torrez MD Unavailable Majo Gold MD Unavailable Encounter Details Date Type Department Care Team (Late Contact Info) Description 06/03/2015 Abstract [facility] [place] [address] [place] [address] Shashi Brooke MD [address] [place] [address] Social History Tobacco Use Types Packs/Day Years [...] Description 12/31/2024 10:30 AM CDT Office Visit [facility]-[address] [place] [phone] Karyn Stubbs ANP-BC [address] [place] [address] documented as of this encounter Visit Diagnoses Not on filedocumented in this encounter Additional Health Concerns Infection Onset Date Last Indicated Resolved Time COVID-19 Rule Out 06/05/2020 06/05/2020 06/06/2020 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 documented as of this encounter Care Teams Consulting Sales Executive Relationship Specialty Start Date End Date Toni Stout MD [address] [place] [phone] PCP - General FAMILY PRACTICE 02/16/16 05/30/20 Hosea Contreras MD [address] [place] [phone] PCP - General FAMILY PRACTICE 05/31/20 Shashi Brooke MD [address] [place] [phone] [place] Mass Communications Instructor CARDIOVASCULAR DISEASE 02/16/16 09/09/23 Patsy Jordan APRN, ATTENDING PSYCHIATRIST-C [address] [facility] [address] [place] [address] NURSE PRACTITIONER 05/25/20 09/09/23 Keisha Gomez ATTENDING PSYCHIATRIST [address] [place] [address] NURSE PRACTITIONER 07/11/21 Karyn Stubbs ANP-BC [address] [place] [address] Nurse Practitioner NURSE PRACTITIONER ADULT HEALTH 09/10/23 Juventino Torrez MD [address] [place] [address] INTERVENTIONAL CARDIOLOGY 09/10/23 Majo Gold MD [address] [place] [address] Consulting Physician CARDIOVASCULAR DISEASE 11/06/24 documented as of this encounter
--- OUTSIDE RECORDS SUMMARY | 2024-11-26 13:30 | XMS_ITS | Encounter Summary ---
Author Organization [facility] Address [facility] [place] [address] Care Team Providers Care Bag Valver Name Role Phone Toni Stout MD Primary Care Provider [phone] Shashi Brooke MD Unavailable [phone] Patsy Jordan APRN, NP-C Unavailable [phone] Hosea Contreras MD Primary Care Provider [phone] Keisha Gomez NP Unavailable [phone] Karyn Stubbs ANP-BC Unavailable +- Juventino Torrez MD Unavailable [phone] Majo Gold MD Unavailable Encounter Details Date Type Department Care Team (Late st Contact Info) Description 03/20/2016 Abstract [facility] [address] [place] [address] Shashi Brooke MD [address] [place] [phone] Social History Tobacco Use Types Packs/Day Years [...] Description 12/31/2024 10:30 AM CDT Office Visit [facility]-[address] [place] [phone] Karyn Stubbs, [facility]- [address] [place] [address] documented as of this encounter Procedures Procedure Name Priority Date/Time Associated Diagnosis Comments PROTHROMBIN TIME, VENOUS Routine 03/18/2016 documented in this encounter Results * PROTIME/INR, VENOUS (03/18/2016) PROTIME WHOLE BLOOD 9.8 INR WHOLE BLOOD 1.0 WBC 4.3 RBC 4.5 HEMOGLOBIN MIXED VENOUS 15.3 13 - 18 g/dL POC HEMATOCRIT 42.7 PLATELET COUNT 182 SODIUM S/P/B 140 POTASSIUM S/P/B 4.1 CHLORIDE S/P/B 105 CO2 25 BUN 16 CREATININE S/P/B 1.25 GLUCOSE 104 MAGNESIUM 2.0 03/18/2016 us Doc [facility] Abstract LABORATORY Final Result documented in this encounter Visit Diagnoses Not on filedocumented in this encounter Additional Health Concerns Infection Onset Date Last Indicated Resolved Time COVID-19 Rule Out 06/05/2020 06/05/2020 06/06/2020 4:31 PM TRANSPORTATION SECURITY OFFICER documented as of this encounter Care Teams Bag Valver Relationship Specialty Start Date End Date Toni Stout MD [address] [place] [phone] PCP - General FAMILY PRACTICE 02/16/16 05/30/20 Hosea Contreras MD [address] [place] [phone] PCP - General FAMILY PRACTICE 05/31/20 Shashi Brooke MD [address] [place] [address] [place] [employer] Physics Technician CARDIOVASCULAR DISEASE 02/16/16 09/09/23 Patsy Jordan APRN, ASSOCIATE PROFESSOR OF CRIMINAL JUSTICE-C [address] [facility] [address] [place] [phone] NURSE PRACTITIONER 05/25/20 09/09/23 Keisha Gomez, ARTEM [address] [place] [address] NURSE PRACTITIONER 07/11/21 Karyn Stubbs, [facility]- [address] [place] [address] Nurse Practitioner NURSE PRACTITIONER ADULT HEALTH 09/10/23 Juventino Torrez MD [address] [place] [address] INTERVENTIONAL CARDIOLOGY 09/10/23 Majo Gold MD [address] [place] [address] Consulting Physician CARDIOVASCULAR DISEASE 11/06/24 documented as of this encounter
--- OUTSIDE RECORDS SUMMARY | 2024-11-26 13:30 | XMS_ITS | Continuity of Care Document ---
Author Name [facility] Organization [facility] Care Team Providers Care Director Of Contracts Name Role Phone [facility] Unavailable Unavailable Problems Combined list of problems from Department of Defense and Veterans Affairs facilities. It does not include entries that were removed or entered in error. Problem Status Onset Date Problem Type Date of Resolution Comments Source Allergic rhinitis Active Condition [facility] Basal cell carcinoma of skin Active Condition [facility] Benign prostatic hyperplasia Active Condition [facility] CAD - Coronary Artery Disease ([facility] [id number]) Active Condition [facility] Dyspnea on exertion Active Condition [facility] Exposure to potentially hazardous substance Active Condition [facility] Fall Active Condition [facility] History of coronary artery bypass grafting Active Condition Jul 08, 2021 Entered By: MARTHA DIAZ Comment: CABG X5 2013 [facility] History of polyp of colon Active Condition [facility] HTN - Hypertension ([facility] [id number]) Active Condition [facility] Hyperlipidemia ([facility] [id number]) Active Condition [facility] Hypothyroidism Active Condition [facility] Pain in lower limb Active Condition [facility] Posttraumatic stress disorder Active Condition [facility] Prediabetes ([facility] [id number]) Active Condition [facility] Raised prostate specific antigen Active Condition [facility] Sleep apnea Active Condition [facility] Spinal stenosis Active Condition [facility] Vertigo Active Condition [facility] Frequency of Urination (ICD-9-CM 788.41) Inactive Condition 07/07/2021 [facility] Diagnosis: ICD-10-CM I25.10 Athscl heart disease of [place] coronary artery w/o ang pctrs Active Diagnosis [facility] Diagnosis: ICD-10-CM L57.0 Actinic keratosis Active Diagnosis [facility] Diagnosis: ICD-10-CM E78.5 Hyperlipidemia, unspecified Active Diagnosis [facility] Diagnosis: ICD-10-CM Z23 Encounter for immunization Active Diagnosis [facility] Diagnosis: ICD-10-CM M21.41 Flat foot [pes planus] (acquired), right foot Active Diagnosis [facility] Diagnosis: ICD-10-CM M48.00 Spinal stenosis, site unspecified Active Diagnosis [facility] Diagnosis: ICD-10-CM D23.122 Other benign neoplasm skin/ left lower eyelid, inc canthus Active Diagnosis [facility] Diagnosis: ICD-10-CM Z96.1 Presence of intraocular lens Active Diagnosis [facility] Medications Combined list of outpatient medications from Department of Defense and [facility] Affairs facilities.Medications provided include 1) outpatient [...] . RESPIR ATORY (INHAL ATION) ACTIVE 05/14/2025 [id number] SAMY GUTIERREZ 2023 1 [facility] ALBUTEROL SO4 90MCG/ACTUA T (CFC-F) INHL,ORAL,8 .5GM INHALE 2 PUFFS ORAL INHALATI ON FOUR TIMES A DAY NEEDED SHAKE WELL. RINSE MOUTHPIE CE FREQUENT LY TO PREVENT CLOGGING . USE 20 MINUTES PRIOR TO EXERTION . RESPIR ATORY (INHAL ATION) DISCONT INUED 11/06/2024 [id number] Blaze LEE 2023 1 [facility] AMLODIPINE BESYLATE 2.5MG TAB TAKE ONE TABLET BY MOUTH ONCE A DAY FOR HEART/BL OOD PRESSURE ORAL ACTIVE 05/14/2025 [id number] 5 SAMY GUTIERREZ 2024 90 [facility] AMLODIPINE BESYLATE 2.5MG TAB TAKE ONE TABLET BY MOUTH ONCE A DAY FOR HEART/BL OOD PRESSURE ORAL DISCONT INUED 10/11/2024 [id number] CHRISTOS GAMA T 2023 90 [facility] AMLODIPINE BESYLATE 2.5MG TAB TAKE ONE TABLET BY MOUTH ONCE A DAY FOR HEART/BL OOD PRESSURE ORAL DISCONT INUED 12/05/2023 [id number] 4 CHRISTOS ASCENCIO [address] [facility] ASCORBIC ACID 500MG TAB TAKE ONE TABLET BY MOUTH ONCE A DAY ORAL ACTIVE Blaze LEE 2023 [facility] ASPIRIN 81MG TAB,CHEWABL E CHEW AND SWALLOW ONE TABLET BY MOUTH ONCE A DAY (TAKE WITH FOOD) ORAL ACTIVE 11/11/2025 [id number] SAMY GUTIERREZ 2024 90 [facility] ATORVASTATI N CA 80MG TAB TAKE ONE-HALF TABLET BY MOUTH EVERY EVENING TO LOWER CHOLESTE ROL ORAL ACTIVE 11/11/2025 [id number] 5 SAMY GUTIERREZ 2024 45 [facility] ATORVASTATI N CA 80MG TAB TAKE ONE-HALF TABLET BY MOUTH EVERY EVENING TO LOWER CHOLESTE ROL ORAL DISCONT INUED 12/10/2024 [id number] 5 CHRISTOS ASCENCIO [address] [facility] CYANOCOBALA MIN 1000MCG TAB TAKE TWO TABLETS BY MOUTH ONCE A DAY ORAL ACTIVE Blaze LEE 2023 [facility] FLAXSEED OIL CAP TAKE 1 CAPSULE BY MOUTH ONCE A DAY ORAL ACTIVE BRENDA SAMY Larson 2023 [facility] FLUOROURACI L 5% CREAM,TOP APPLY THIN FILM TO AFFECTED AREA(S) TWICE A DAY AVOID SUN EXPOSURE . FOLLOW DIRECTIO NS CAREFULL Y FOR PROPER HANDLING /DISPOSA L. TOPICA L 12/12/2023 [id number] SA GEE ZENDEJAS 2023 40 [facility] IPRATROPIUM BR 0.03% SOLN,SPRAY, NASAL USE 2 SPRAYS INTO NOSTRIL( S) TWICE DAILY NEEDED NASAL ACTIVE 08/05/2025 [id number] RA JOSELIN GATES 2024 90 [facility] IPRATROPIUM BR 0.03% SOLN,SPRAY, NASAL USE 2 SPRAYS INTO NOSTRIL( S) THREE TIMES A DAY FOR ALLERGIE S/NASAL SYMPTOMS . NASAL DISCONT INUED 03/13/2025 [id number] 5 NICKOLAS MARIE 2023 30 [facility] IPRATROPIUM BR 0.03% SOLN,SPRAY, NASAL USE 2 SPRAYS INTO NOSTRIL( S) THREE TIMES A DAY FOR ALLERGIE S/NASAL SYMPTOMS . NASAL DISCONT INUED 09/21/2024 [id number] 4 NICKOLAS MARIE 2023 30 [facility] LEVOTHYROXI NE NA 25MCG TAB TAKE ONE TABLET BY MOUTH EVERY MORNING BEFORE A MEAL FOR THYROID. TAKE 30 MINUTES BEFORE FOOD. TAKE SEPARATE LY FROM ALL OTHER MEDICATI ONS. ORAL SUSPEND ED 05/14/2025 [id number] 5 SAMY GUTIERREZ F 2024 90 [facility] LEVOTHYROXI NE NA 25MCG TAB (SYNTHROID) TAKE ONE TABLET BY MOUTH EVERY MORNING BEFORE A MEAL FOR THYROID. TAKE 30 MINUTES BEFORE FOOD. TAKE SEPARATE LY FROM ALL OTHER MEDICATI ONS. ORAL DISCONT INUED 10/11/2024 [id number] 4 NICKOLAS MARIE 2023 90 [facility] LIDOCAINE 5% PATCH APPLY 1 PATCH TO SKIN SITE ONCE A DAY APPLY PATCH AND PRESS FIRMLY FOR 10-15 SECONDS. KEEP ON FOR 12 HOURS THEN REMOVE PATCH FOR 12 HOURS. TRANSD ERMAL ACTIVE 02/07/2025 [id number] 5 Constance COKER 2023 30 [facility] LORATADINE 10MG TAB TAKE ONE TABLET BY MOUTH ONCE A DAY ON EMPTY STOMACH ORAL SUSPEND ED 11/11/2025 [id number] 5 SAMY GUTIERREZ 2024 90 [facility] LORATADINE 10MG TAB TAKE ONE TABLET BY MOUTH ONCE A DAY ON EMPTY STOMACH ORAL DISCONT INUED 05/07/2025 [id number] RA JOSELIN GATES 2023 90 [facility] LORATADINE 10MG TAB TAKE ONE TABLET BY MOUTH ONCE A DAY ON EMPTY STOMACH ORAL DISCONT INUED 11/06/2024 [id number] Blaze LEE 2023 90 [facility] MAGNESIUM GLUCONATE 500MG TAB TAKE ONE TABLET BY MOUTH ORAL ACTIVE Blaze LEE 2023 [facility] MULTIVITAMI N/MINERALS ANTIOXIDANT CAP/TAB TAKE 1 CAP/TAB BY MOUTH ONCE A DAY ORAL ACTIVE Blaze LEE 2023 [facility] MULTIVITAMI N/MINERALS ANTIOXIDANT CAP/TAB TAKE 1 CAP/TAB BY MOUTH ONCE A DAY ORAL ACTIVE SAMY GUTIERREZ 2023 [facility] NITROGLYCER IN 0.4MG TAB,SUBLING UAL DISSOLVE ONE TABLET UNDER THE TONGUE ONE-TIME NEEDED FOR CHEST PAIN; IF NO IMPROVEM ENT AFTER FIRST DOSE CALL 9-1-1. MAY TAKE 2 ADDITION AL DOSES, 5 MINUTES APART SUBLIN GUAL ACTIVE 11/11/2025 [id number] 5 SAMY GUTIERREZ 2024 100 [facility] NITROGLYCER IN 0.4MG TAB,SUBLING UAL DISSOLVE ONE TABLET UNDER THE TONGUE ONE-TIME NEEDED FOR CHEST PAIN; IF NO IMPROVEM ENT AFTER FIRST DOSE CALL 9-1-1. MAY TAKE 2 ADDITION AL DOSES, 5 MINUTES APART SUBLIN GUAL DISCONT INUED 12/04/2024 [id number] 4 [facility] [address] [facility] RANOLAZINE 500MG TAB,SA TAKE ONE TABLET BY MOUTH TWICE A DAY FOR HEART. *SWALLOW WHOLE- DO NOT CRUSH,BR EAK OR CHEW* ORAL ACTIVE 11/11/2025 [id number] 5 SAMY GUTIERREZ 2024 180 [facility] RANOLAZINE 500MG TAB,SA TAKE ONE TABLET BY MOUTH TWICE A DAY FOR HEART. *SWALLOW WHOLE- DO NOT CRUSH,BR EAK OR CHEW* ORAL DISCONT INUED 12/04/2024 [id number] 5 [facility] [address] [facility] RANOLAZINE 500MG TAB,SA TAKE ONE TABLET BY MOUTH TWICE A DAY FOR HEART. *SWALLOW WHOLE- DO NOT CRUSH,BR EAK OR CHEW* ORAL DISCONT INUED 12/05/2023 [id number] 4 [facility] [address] [facility] Immunizations Combined list of available immunizations from the Department of Defense and [facility] facilities. 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 TDAP 2023 LYNN LEIVA LEFT DELTO ID [id number] 115 complet ed [facility] INFLUENZA, HIGH-DOSE, TRIVALENT, PF 2023 TYESHA PERKINS LEFT DELTO ID [id number] 135 complet ed Completed Series, [facility] COVID-19 ([facility]), MRNA, LNP-S, PF, JOLENE-SUCROSE, 30 MCG/0.3 ML (AGES 12+ YEARS) 1 2022 LEFT DELTO ID [id number] 309 complet ed [facility] INFLUENZA, HIGH-DOSE, QUADRIVALENT 2022 BRONSON,AJOKE LEFT DELTO ID [id number] 197 complet ed Completed Series, [facility] COVID-19 ([facility]), MRNA, LNP-S, BIVALENT BOOSTER, PF, 30 MCG/0.3 ML DOSE 1 2021 300 complet ed PFR; [id number]; 3 [facility] INFLUENZA, SPLIT VIRUS, QUADRIVALENT, PRESERVATIVE 1 2021 158 complet ed HISTORICA L INFORMATI ON - FROM OTHER REGISTRY, [facility] INFLUENZA, UNSPECIFIED FORMULATION [address] [facility] COVID-19 ([place] [facility]), MRNA, LNP-S, PF, 30 MCG/0.3 ML DOSE, JOLENE-SUCROSE (AGES 12+ YEARS) 3 2021 217 complet ed PFR; [id number]; 2 [facility] COVID-19 (PFIZER), MRNA, LNP-S, PF, 30 MCG/0.3 ML DOSE 3 2020 208 complet ed [facility] INFLUENZA, SPLIT VIRUS, QUADRIVALENT, PRESERVATIVE 1 2020 158 complet ed HISTORICA L INFORMATI ON - FROM OTHER REGISTRY, [facility] INFLUENZA, UNSPECIFIED FORMULATION [address] [facility] COVID-19 (PFIZER), MRNA, LNP-S, PF, 30 MCG/0.3 ML DOSE 2 2020 208 complet ed HISTORICA L INFORMATI ON - FROM OTHER REGISTRY, [facility] COVID-19 (PFIZER), MRNA, LNP-S, PF, 30 MCG/0.3 ML DOSE 2 2020 208 complet ed [facility] COVID-19 (PFIZER), MRNA, LNP-S, PF, 30 MCG/0.3 ML DOSE 1 2020 208 complet ed [facility] ZOSTER RECOMBINANT 2 2020 187 complet ed yes from pt [facility] ZOSTER RECOMBINANT 1 2019 187 complet ed yes from pt [facility] INFLUENZA, SPLIT VIRUS, QUADRIVALENT, PRESERVATIVE 1 2019 158 complet ed HISTORICA L INFORMATI ON - FROM OTHER [facility], [facility] INFLUENZA, SPLIT VIRUS, QUADRIVALENT, PRESERVATIVE 1 2018 158 complet ed HISTORICA L INFORMATI ON - FROM OTHER REGISTRY, [facility] PNEUMOCOCCAL POLYSACCHARID E PPV23 1 2017 33 complet ed HISTORICA L INFORMATI ON - FROM OTHER REGISTRY, [facility] INFLUENZA, SPLIT VIRUS, QUADRIVALENT, PRESERVATIVE 1 2016 158 complet ed HISTORICA L INFORMATI ON - FROM OTHER REGISTRY, [facility] INFLUENZA, SPLIT VIRUS, TRIVALENT, PRESERVATIVE 1 2013 141 complet ed HISTORICA L INFORMATI ON - FROM OTHER REGISTRY, [facility] PNEUMOCOCCAL POLYSACCHARID E PPV23 2013 33 complet ed [facility] Results Combined list of recent [...] May 13, 2024 03:58 PM Reporting Lab: [facility] [address] Performing Lab: [facility] DIVISION B12 COBALAMIN (VITAMIN B12) [MASS/VOLU [...] May 13, 2024 09:16 AM Reporting Lab: [facility] [place] [address] Performing Lab: [facility] DIVISION CBC LEUKOCYTES [#/VOLUME] IN BLOOD BY AUTOMATED COUNT 5.2 10*3/uL 3.6 - 11.2 05/13 Specimen Type: BLOOD No comment entered. Ordering Provider: GRAZYNA GUTIERREZ Report Released Date/Time: May 13, 2024 09:16 AM Reporting Lab: [facility] [address] Performing Lab: [facility] [address] DIVISION CBC ERYTHROCYT ES [#/VOLUME] IN BLOOD BY AUTOMATED COUNT 4.37 10*6/uL 4.10 - 5.70 05/13 Specimen Type: BLOOD No comment entered. Ordering Provider: GRAZYNA GUTIERREZ Report Released Date/Time: May 13, 2024 09:16 AM Reporting Lab: [facility] [address] Performing Lab: [facility] [id number] [place] [address] DIVISION CBC HEMOGLOBIN [MASS/VOLU ME] IN BLOOD 15.1 g/dL 13.1 - 16.8 05/13 Specimen Type: BLOOD No comment entered. Ordering Provider: GRAZYNA GUTIERREZ Report Released Date/Time: May 13, 2024 09:16 AM Reporting Lab: [facility] [address] Performing Lab: [facility] [id number] [place] [address] CBC HEMATOCRIT [VOLUME FRACTION] OF BLOOD 42.8 38.2 - 48.4 05/13 Specimen Type: BLOOD No comment entered. Ordering Provider: GRAZYNA GUTIERREZ Report Released Date/Time: May 13, 2024 09:16 AM Reporting Lab: [facility] [place] [address] Performing Lab: [facility] DIVISION CBC MCV [ENTITIC VOLUME] BY AUTOMATED COUNT 97.9 fL 80.0 - 100.0 05/13 Specimen Type: BLOOD No comment entered. Ordering Provider: GRAZYNA GUTIERREZ Report Released Date/Time: May 13, 2024 09:16 AM Reporting Lab: [facility] [address] Performing Lab: [facility] [address] DIVISION CBC MCH [ENTITIC MASS] BY AUTOMATED COUNT 34.6 pg 27.0 - 34.0 05/13 H Specimen Type: BLOOD No comment entered. Ordering Provider: GRAZYNA GUTIERREZ Report Released Date/Time: May 13, 2024 09:16 AM Reporting Lab: [facility] [address] Performing Lab: [facility] [address] DIVISION CBC MCHC [MASS/VOLU ME] BY AUTOMATED COUNT 35.3 g/dL 33.0 - 36.0 05/13 Specimen Type: BLOOD No comment entered. Ordering Provider: GRAZYNA GUTIERREZ Report Released Date/Time: May 13, 2024 09:16 AM Reporting Lab: [facility] [place] [address] Performing Lab: [facility] CBC PLATELETS [#/VOLUME] IN BLOOD BY AUTOMATED COUNT 191 10*3/uL 150 - 400 05/13 Specimen Type: BLOOD No comment entered. Ordering Provider: GRAZYNA GUTIERREZ Report Released Date/Time: May 13, 2024 09:16 AM Reporting Lab: [facility] [place] [address] Performing Lab: [facility] DIVISION CBC PLATELET MEAN VOLUME [ENTITIC VOLUME] IN BLOOD BY AUTOMATED COUNT 9.3 fL 7.5 - 11.2 05/13 Specimen Type: BLOOD No comment entered. Ordering Provider: GRAZYNA GUTIERREZ Report Released Date/Time: May 13, 2024 09:16 AM Reporting Lab: [facility] [place] [address] Performing Lab: [facility] DIVISION CBC ERYTHROCYT E DISTRIBUTI ON WIDTH [RATIO] BY AUTOMATED COUNT 11.2 11.8 - 15.1 05/13 L Specimen Type: BLOOD No comment entered. Ordering Provider: GRAZYNA GUTIERREZ Report Released Date/Time: May 13, 2024 09:16 AM Reporting Lab: [facility] [place] [address] Performing Lab: [facility] [address] [facility] CBC LYMPHOCYTE S/100 LEUKOCYTES IN BLOOD BY AUTOMATED COUNT 28 05/13 Specimen Type: BLOOD No comment entered. Ordering Provider: GRAZYNA GUTIERREZ Report Released Date/Time: May 13, 2024 09:16 AM Reporting Lab: [facility] [address] Performing Lab: [facility] [phone] DIVISION CBC MONOCYTES/ 100 LEUKOCYTES IN BLOOD BY AUTOMATED COUNT 8 05/13 Specimen Type: BLOOD No comment entered. Ordering Provider: GRAZYNA GUTIERREZ Report Released Date/Time: May 13, 2024 09:16 AM Reporting Lab: [facility] [address] Performing Lab: [facility] [id number] DIVISION CBC NEUTROPHIL S/100 LEUKOCYTES IN BLOOD BY AUTOMATED COUNT 61 05/13 Specimen Type: BLOOD No comment entered. Ordering Provider: GRAZYNA GUTIERREZ Report Released Date/Time: May 13, 2024 09:16 AM Reporting Lab: [facility] [address] Performing Lab: [facility] [address] [place] [address] DIVISION CBC EOSINOPHIL S/100 LEUKOCYTES IN BLOOD BY AUTOMATED COUNT 3 05/13 Specimen Type: BLOOD No comment entered. Ordering Provider: GRAZYNA GUTIERREZ Report Released Date/Time: May 13, 2024 09:16 AM Reporting Lab: [facility] [address] Performing Lab: [facility] [id number] [place] [address] DIVISION CBC BASOPHILS/ 100 LEUKOCYTES IN BLOOD BY AUTOMATED COUNT 0 05/13 Specimen Type: BLOOD No comment entered. Ordering Provider: GRAZYNA GUTIERREZ Report Released Date/Time: May 13, 2024 09:16 AM Reporting Lab: [facility] [place] [address] Performing Lab: [facility] DIVISION CBC LYMPHOCYTE S [#/VOLUME] IN BLOOD BY AUTOMATED COUNT 1.42 10*3/uL 0.77 - 4.50 05/13 Specimen Type: BLOOD No comment entered. Ordering Provider: GRAZYNA GUTIERREZ Report Released Date/Time: May 13, 2024 09:16 AM Reporting Lab: [facility] [place] [address] Performing Lab: [facility] DIVISION CBC MONOCYTES [#/VOLUME] IN BLOOD BY AUTOMATED COUNT 0.39 10*3/uL 0.19 - 0.80 05/13 Specimen Type: BLOOD No comment entered. Ordering Provider: GRAZYNA GUTIERREZ Report Released Date/Time: May 13, 2024 09:16 AM Reporting Lab: [facility] [place] [address] Performing Lab: [facility] DIVISION CBC NEUTROPHIL S [#/VOLUME] IN BLOOD BY AUTOMATED COUNT 3.15 10*3/uL 2.10 - 8.00 05/13 Specimen Type: BLOOD No comment entered. Ordering Provider: GRAZYNA GUTIERREZ Report Released Date/Time: May 13, 2024 09:16 AM Reporting Lab: [facility] [place] [address] Performing Lab: [facility] DIVISION CBC EOSINOPHIL S [#/VOLUME] IN BLOOD BY AUTOMATED COUNT 0.17 10*3/uL 0.00 - 0.60 05/13 Specimen Type: BLOOD No comment entered. Ordering Provider: GRAZYNA GUTIERREZ Report Released Date/Time: May 13, 2024 09:16 AM Reporting Lab: [facility] [place] [address] Performing Lab: [facility] DIVISION CBC BASOPHILS [#/VOLUME] IN BLOOD BY AUTOMATED COUNT 0.02 10*3/uL 0.00 - 0.20 05/13 Specimen Type: BLOOD No comment entered. Ordering Provider: GRAZYNA GUTIERREZ Report Released Date/Time: May 13, 2024 09:16 AM Reporting Lab: [facility] [place] [address] Performing Lab: [facility] DIVISION COMPREHE NSIVE METABOLI C PANEL CREATININE [MASS/VOLU ME] IN SERUM OR PLASMA 1.23 mg/dL 0.70 - 1.30 05/13 Specimen Type: PLASMA Comment: No hemolysis noted. Ordering Provider: GRAZYNA GUTIERREZ Report Released Date/Time: May 13, 2024 09:16 AM Reporting Lab: [facility] [place] [address] Performing Lab: [facility] DIVISION COMPREHE NSIVE METABOLI C PANEL UREA NITROGEN [MASS/VOLU ME] IN SERUM OR PLASMA 17.8 mg/dL 9.0 - 25.0 05/13 Specimen Type: PLASMA Comment: No hemolysis noted. Ordering Provider: GRAZYNA GUTIERREZ Report Released Date/Time: May 13, 2024 09:16 AM Reporting Lab: [facility] [place] [address] Performing Lab: [facility] [address] [facility] COMPREHE NSIVE METABOLI C PANEL GLUCOSE [MASS/VOLU ME] IN SERUM OR PLASMA 109 mg/dL 72 - 99 05/13 H Specimen Type: PLASMA Comment: No hemolysis noted. Ordering Provider: GRAZYNA GUTIERREZ Report Released Date/Time: May 13, 2024 09:16 AM Reporting Lab: [facility] [address] Performing Lab: [facility] [address] DIVISION COMPREHE NSIVE METABOLI C PANEL SODIUM [MOLES/VOL UME] IN SERUM OR PLASMA 139 meq/L 136 - 145 05/13 Specimen Type: PLASMA Comment: No hemolysis noted. Ordering Provider: GRAZYNA GUTIERREZ Report Released Date/Time: May 13, 2024 09:16 AM Reporting Lab: [facility] [place] [id number] Performing Lab: [facility] [id number] DIVISION COMPREHE NSIVE METABOLI C PANEL POTASSIUM [MOLES/VOL UME] IN SERUM OR PLASMA 5.5 meq/L 3.5 - 5.0 05/13 H Specimen Type: PLASMA Comment: No hemolysis noted. Ordering Provider: GRAZYNA GUTIERREZ Report Released Date/Time: May 13, 2024 09:16 AM Reporting Lab: [facility] [id number] Performing Lab: [facility] [id number] [place] [address] DIVISION COMPREHE NSIVE METABOLI C PANEL CHLORIDE [MOLES/VOL UME] IN SERUM OR PLASMA 106 meq/L 98 - 107 05/13 Specimen Type: PLASMA Comment: No hemolysis noted. Ordering Provider: GRAZYNA GUTIERREZ Report Released Date/Time: May 13, 2024 09:16 AM Reporting Lab: [facility] [place] [id number] Performing Lab: [facility] DIVISION COMPREHE NSIVE METABOLI C PANEL CARBON DIOXIDE, TOTAL [MOLES/VOL UME] IN SERUM OR PLASMA 26 meq/L 22 - 31 05/13 Specimen Type: PLASMA Comment: No hemolysis noted. Ordering Provider: GRAZYNA GUTIERREZ Report Released Date/Time: May 13, 2024 09:16 AM Reporting Lab: [facility] [place] [address] Performing Lab: [facility] DIVISION COMPREHE NSIVE METABOLI C PANEL CALCIUM [MASS/VOLU ME] IN SERUM OR PLASMA 9.9 mg/dL 8.4 - 10.4 05/13 Specimen Type: PLASMA Comment: No hemolysis noted. Ordering Provider: GRAZYNA GUTIERREZ Report Released Date/Time: May 13, 2024 09:16 AM Reporting Lab: [facility] [place] [address] Performing Lab: [facility] DIVISION COMPREHE NSIVE METABOLI C PANEL PROTEIN [MASS/VOLU ME] IN SERUM OR PLASMA 6.7 g/dL 6.0 - 8.6 05/13 Specimen Type: PLASMA Comment: No hemolysis noted. Ordering Provider: GRAZYNA GUTIERREZ Report Released Date/Time: May 13, 2024 09:16 AM Reporting Lab: [facility] [place] [address] Performing Lab: [facility] [address] [address] DIVISION COMPREHE NSIVE METABOLI C PANEL ALBUMIN [MASS/VOLU ME] IN SERUM OR PLASMA 4.5 g/dL 3.4 - 5.0 05/13 Specimen Type: PLASMA Comment: No hemolysis noted. Ordering Provider: GRAZYNA GUTIERREZ Report Released Date/Time: May 13, 2024 09:16 AM Reporting Lab: [facility] [place] [address] Performing Lab: [facility] DIVISION COMPREHE NSIVE METABOLI C PANEL BILIRUBIN. TOTAL [MASS/VOLU ME] IN SERUM OR PLASMA 0.6 mg/dL 0.2 - 1.2 05/13 Specimen Type: PLASMA Comment: No hemolysis noted. Ordering Provider: GRAZYNA GUTIERREZ Report Released Date/Time: May 13, 2024 09:16 AM Reporting Lab: [facility] [place] [address] Performing Lab: [facility] DIVISION COMPREHE NSIVE METABOLI C PANEL ALKALINE PHOSPHATAS E [ENZYMATIC ACTIVITY/V OLUME] IN SERUM OR PLASMA 84 U/L 40 - 150 05/13 Specimen Type: PLASMA Comment: No hemolysis noted. Ordering Provider: GRAZYNA GUTIERREZ Report Released Date/Time: May 13, 2024 09:16 AM Reporting Lab: [facility] [place] [address] Performing Lab: [facility] DIVISION COMPREHE NSIVE METABOLI C PANEL ASPARTATE AMINOTRANS FERASE [ENZYMATIC ACTIVITY/V OLUME] IN SERUM OR PLASMA 20 U/L 5 - 34 05/13 Specimen Type: PLASMA Comment: No hemolysis noted. Ordering Provider: GRAZYNA GUTIERREZ Report Released Date/Time: May 13, 2024 09:16 AM Reporting Lab: [facility] [place] [address] Performing Lab: [facility] [address] [facility] COMPREHE NSIVE METABOLI C PANEL ALANINE AMINOTRANS FERASE [ENZYMATIC ACTIVITY/V OLUME] IN SERUM OR PLASMA 23 U/L 8 - 40 05/13 Specimen Type: PLASMA Comment: No hemolysis noted. Ordering Provider: GRAZYNA GUTIERREZ Report Released Date/Time: May 13, 2024 09:16 AM Reporting Lab: [facility] [address] Performing Lab: [facility] [phone] [place] [address] DIVISION COMPREHE NSIVE METABOLI C PANEL GLOMERULAR FILTRATION RATE/1.73 SQ M.PREDICTE D [VOLUME RATE/AREA] IN SERUM, PLASMA OR BLOOD BY CREATININE -BASED FORMULA (CKD-EPI 2020) 61.22 60 05/13 Specimen Type: PLASMA Comment: No hemolysis noted. Ordering Provider: GRAZYNA GUTIERREZ Report Released Date/Time: May 13, 2024 09:16 AM Reporting Lab: [facility] [address] Performing Lab: [facility] [phone] [place] [address] DIVISION HGA1C HEMOGLOBIN A1C/HEMOGL OBIN.TOTAL IN BLOOD 5.6 4.0 - 6.0 05/13 Specimen Type: BLOOD No comment entered. Ordering Provider: GRAZYNA GUTIERREZ Report Released Date/Time: May 13, 2024 09:16 AM Reporting Lab: [facility] [address] Performing Lab: [facility] [phone] [place] [address] DIVISION HIV COMBO FOURTH GENERATI ON (STL) HIV 1+2 AB+HIV1 P24 AG [PRESENCE] IN SERUM OR PLASMA BY IMMUNOASSA Y Nonreact yessi 05/13 Specimen Type: SERUM No comment entered. Ordering Provider: GRAZYNA GUTIERREZ Report Released Date/Time: May 13, 2024 09:16 AM Reporting Lab: [facility] [address] [facility] [address] Performing Lab: [facility] [address] [facility] [address] [facility] LIPID PANEL (STL) CHOLESTERO L [MASS/VOLU ME] IN SERUM OR PLASMA 173 mg/dL 0 - 200 05/13 Specimen Type: PLASMA Comment: No hemolysis noted. Ordering Provider: GRAZYNA GUTIERREZ Report Released Date/Time: May 13, 2024 09:16 AM Reporting Lab: [facility] [place] [address] Performing Lab: [facility] [place] [phone] LIPID PANEL (STL) TRIGLYCERI DE [MASS/VOLU ME] IN SERUM OR PLASMA 92 mg/dL 0 - 150 05/13 Specimen Type: PLASMA Comment: No hemolysis noted. Ordering Provider: GRAZYNA GUTIERREZ Report Released Date/Time: May 13, 2024 09:16 AM Reporting Lab: [facility] [place] [phone] Performing Lab: [facility] [place] [phone] [place] [address] LIPID PANEL (STL) CHOLESTERO L IN LDL [MASS/VOLU ME] IN SERUM OR PLASMA BY CALCULATIO N 113 mg/dL 05/13 Specimen Type: PLASMA Comment: No hemolysis noted. Ordering Provider: GRAZYNA GUTIERREZ Report Released Date/Time: May 13, 2024 09:16 AM Reporting Lab: [facility] [address] Performing Lab: [facility] [address] [facility] LIPID PANEL (STL) CHOLESTERO L IN HDL [MASS/VOLU ME] IN SERUM OR PLASMA 42 mg/dL 40 05/13 Specimen Type: PLASMA Comment: No hemolysis noted. Ordering Provider: GRAZYNA GUTIERREZ Report Released Date/Time: May 13, 2024 09:16 AM Reporting Lab: [facility] [place] [address] Performing Lab: [facility] DIVISION PROST. SPECIFIC AG.(PB-S TL) PROSTATE SPECIFIC AG [...] May 13, 2024 09:16 AM Reporting Lab: [facility] [place] [address] Performing Lab: [facility] DIVISION TSH W/ REFLEX FT4 (STL) THYROTROPI N [UNITS/VOL UME] IN SERUM OR PLASMA 3.870 u[IU]/mL 0.470 - 5.000 05/13 Specimen Type: PLASMA No comment entered. Ordering Provider: GRAZYNA GUTIERREZ Report Released Date/Time: May 13, 2024 09:16 AM Reporting Lab: [facility] [place] [address] Performing Lab: [facility] DIVISION VITAMIN D, 25-HYDRO XY 25-HYDROXY VITAMIN [...] May 13, 2024 09:16 AM Reporting Lab: [facility] [address] Performing Lab: [facility] [address] [facility] Vital Signs Combined list of inpatient and outpatient Vital Signs from Department of Defense and Veterans Affairs, ranging from 12 months to all on record, depending upon the facility. Vital Sign Value Date Comments Source SYSTOLIC BLOOD PRESSURE 144 11/10/2024 08:32:41 [facility] DIASTOLIC BLOOD PRESSURE 77 11/10/2024 08:32:41 [facility] PULSE OXIMETRY 97 11/10/2024 08:32:41 [facility] TEMPERATURE 97 11/10/2024 08:32:41 [facility] PULSE 63 11/10/2024 08:32:41 [facility] RESPIRATION 16 11/10/2024 08:32:41 [facility] SYSTOLIC BLOOD PRESSURE 135 05/13/2024 08:26:53 [facility] DIASTOLIC BLOOD PRESSURE 74 05/13/2024 08:26:53 [facility] PULSE OXIMETRY 96 05/13/2024 08:26:53 [facility] WEIGHT 203 05/13/2024 08:26:53 [facility] BMI 28 kg/m2 05/13/2024 08:26:53 [facility] PAIN 2 05/13/2024 08:26:53 [facility] TEMPERATURE 98.1 05/13/2024 08:26:53 [facility] PULSE 66 05/13/2024 08:26:53 [facility] RESPIRATION 16 05/13/2024 08:26:53 [facility] SYSTOLIC BLOOD PRESSURE 138 12/04/2023 09:46:14 [facility] DIASTOLIC BLOOD PRESSURE 69 12/04/2023 09:46:14 [facility] PULSE OXIMETRY 98 12/04/2023 09:46:14 [facility] WEIGHT 189.1 12/04/2023 09:46:14 [facility] BMI 26 kg/m2 12/04/2023 09:46:14 [facility] PAIN 2 12/04/2023 09:46:14 [facility] TEMPERATURE 98.1 12/04/2023 09:46:14 [facility] PULSE 67 12/04/2023 09:46:14 [facility] RESPIRATION 16 12/04/2023 09:46:14 [facility] Encounters Combined list of: 1) Encounters from Department of [facility] Affairs facilities going backup to the last 18 months, not all [place] inpatient encounters are included; 2) Encounters from the Department of [facility] facilities going backup to 280 months. 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 SKY MYRICK 09[facility] INTRM OPH EXAM NEW PATIENT [id number] Diagnos is: ICD-10- CM 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, inc canthus GERMELISSABlaze SRI A 10/03 [facility] Outpatient Encounter [id number] 10/10 [facility] OFFICE O/P EST HI 40 MIN [id number] Diagnos is: ICD-10- CM I25.10 Athscl heart disease of [place] 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 ang pctCORIN Barboza T 11/05 [facility] OFF/OP CNSLTJ NEW/EST MOD 40 [id number] Diagnos is: ICD-10- CM L57.0 Actinic keratos is Radha RIVERS 11/11 [facility] Outpatient Encounter [id number] Diagnos is: ICD-10- CM M48.00 Spinal stenosi s, site unspeci CORIN Kaplan T 12/02 [facility] OFFICE O/P EST MOD 30 MIN [id number] Diagnos is: ICD-10- CM I25.10 Athscl heart disease of [place] 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 ang CORIN Wiley 12/03 [facility] Outpatient Encounter [id number] 02/21 [facility] OFFICE O/P EST LOW 20 MIN [id number] Diagnos is: ICD-10- CM M21.41 Flat foot [pes planus] (acquir ed), right foot JEROD JAMA 02/21 [facility] IMMUNIZATI ON ADMIN [id number] Diagnos is: ICD-10- CM Z23 Encount er for immuniz TICO Javed 02/21 [facility] Outpatient Encounter [id number] 05/06 [facility] Outpatient Encounter [id number] 05/13 [facility] OFFICE O/P EST MOD 30 MIN [id number] Diagnos is: ICD-10- CM E78.5 Hyperli pidemia , unspeci fiCORIN Hebert T 05/13 [facility] OFFICE O/P EST LOW 20 MIN [id number] Diagnos is: ICD-10- CM L57.0 Actinic keratos is DENILSON NGUYEN 05/16 [facility] Outpatient Encounter [id number] ALESSIA MONTEJOENIA A 11/07 [facility] OFFICE O/P EST MOD 30 MIN [id number] Diagnos is: ICD-10- CM I25.10 Athscl heart disease of [place] 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 ang pctrs CORIN GAMA T 11/10 [facility] Outpatient Encounter [id number] 11/17 [facility] Social History Combined list of available smoking, tobacco, and other social history from Department of Defense and Veterans Affairs facilities. Social History Type Response Date Comment [facility] e Tobacco smoking status NHIS VA-TOBACCO NEVER USED OTHER TYPE 11/07/2024 [facility] History of tobacco use VA-TOBACCO USE FORMER CIGARETTES 11/07/2024 [facility] History of tobacco use VA-TOBACCO FORMER USER 11/06/2023 [facility] History of tobacco use VA-TOBACCO NEVER USED 10/10/2022 [facility] History of tobacco use VA-TOBACCO FORMER USER 07/08/2021 [facility] Plan of Care List of future care activities from Department of [facility] Affairs facilities. Additional future care activities may be listed in the Assessment and Plan section. Date/Time Care Activity Care Activity Detail Facili ty 12/02/2024 AMBULATORY - MEDICINE AMBULATORY - MEDICI NE [facility]
--- OUTSIDE RECORDS SUMMARY | 2024-11-26 13:30 | XMS_ITS | Encounter Summary ---
Author Organization [facility] Address [facility] [place] [address] Care Team Providers Care Veterinary Practice Manager Name Role Phone Toni Stout MD Primary Care Provider [phone] Shashi Brooke MD Unavailable [phone] Patsy Jordan APRN TILE PICKER-C Unavailable Hosea Contreras MD Primary Care Provider [phone] Keisha Gomez NP Unavailable [phone] Karyn Stubbs ANP-BC Unavailable [phone] Juventino Torrez MD Unavailable [phone] Majo Gold MD Unavailable Encounter Details Date Type Department Care Team (Late st Contact Info) Description 05/29/2020 Abstract [facility] [address] [place] [id number] Abstract, Doc [facility] Social History Tobacco Use Types Packs/Day Years Used Date Smoking Tobacco: Former Smokeless Tobacco: Never Alcohol Use Standard Drinks/Week Comments No 0 (1 standard drink = 0.6 oz pur e alcohol) Sex and Gender Information Value Date Recorded Sex Assigned at Not on file Legal Sex Male 1:24 AM CDT Gender Identity Not on file Sexual Orientation Not on file COVID-19 Exposure Response Date Recorded In the last month, have you been in contact with someone who was confirmed or suspected to have Coronavirus / COVID-19? No / Unsure 05/27/2020 10:40 AM CREDIT RELATIONSHIP MANAGER documented as of this encounter Plan of Treatment Upcoming Encounters Date Type Department Care Team (Late st Contact Info) Description 12/31/2024 10:30 AM CDT [facility] [address] [place] [address] [place] [phone] Karyn Stubbs, ANP- [address] [place] [address] documented as of this encounter Procedures Procedure Name Priority Date/Time Associated Diagnosis Comments CRP (OUTSIDE LAB) Routine 02/18/2020 BASIC METABOLIC PANEL Routine 02/18/2020 MAGNESIUM Routine 02/18/2020 CK (CPK) Routine 02/18/2020 CMP (ABSTRACTED LAB) Routine 09/26/2019 TSH (OUTSIDE LAB) Routine 09/26/2019 LIPID PANEL Routine 09/26/2019 documented in this encounter Results * CK (CPK) (02/18/2020) CPK 102 41 - 331 02/18/2020 us [facility] Abstract LABORATORY Final Result * MAGNESIUM (02/18/2020) MAGNESIUM 2.1 02/18/2020 us [facility] Abstract LABORATORY Final Result * CRP (OUTSIDE LAB) (02/18/2020) CRP <1 0 - 10 02/18/2020 us Doc [facility] Abstract LAB-OUTSIDE/ABSTRACTED Final Result * BASIC METABOLIC PANEL (02/18/2020) SODIUM S/P/B 139 POTASSIUM S/P/B 4.6 CO2 24 CHLORIDE S/P/B 102 GLUCOSE 102 mg/dL CALCIUM S/P/B 9.2 BUN 15 CREATININE S/P/B 1.13 0.7 - 1.3 EGFR AFR. AMER. 75 <=90 EGFR NON-AFR. AMER. 65 <=90 02/18/2020 us Doc [facility] Abstract LABORATORY Final Result * TSH (OUTSIDE LAB) (09/26/2019) TSH 3.93 0.45 - 4.5 09/26/2019 us Doc [facility] Abstract LAB-OUTSIDE/ABSTRACTED Final Result * CMP (ABSTRACTED LAB) (09/26/2019) SODIUM S/P/B 141 POTASSIUM S/P/B 4.6 CHLORIDE S/P/B 103 CO2 23 BUN 14 CREATININE S/P/B 1.15 0.7 - 1.3 CALCIUM S/P/B 9.2 GLUCOSE 95 mg/dL TOTAL PROTEIN S/P/B 6.8 ALBUMIN S/P/B 4.6 3.5 - 5.0 AST 18 ALT 16 ALKALINE PHOSPHATASE S/P/B 77 BILIRUBIN TOTAL S/P/B 0.5 09/26/2019 us Doc [facility] Abstract LAB-OUTSIDE/ABSTRACTED Final Result * LIPID PANEL (09/26/2019) CHOLESTEROL 128 HDL 35 TRIGLYCERIDES 143 LDL (CALCULATED) 64 VLDL CALCULATION 29 09/26/2019 us Doc [facility] Abstract LABORATORY Final Result documented in this encounter Visit Diagnoses Not on filedocumented in this encounter Additional Health Concerns Infection Onset Date Last Indicated Resolved Time COVID-19 Rule Out 06/05/2020 06/05/2020 06/06/2020 4:31 PM CREDIT RELATIONSHIP MANAGER documented as of this encounter Care Teams Veterinary Practice Manager Relationship Specialty Start Date End Date Toni Stout MD [address] [place] [phone] PCP - General FAMILY PRACTICE 02/16/16 05/30/20 Hosea Contreras MD [address] [place] [phone] PCP - General [facility] 05/31/20 Shashi Brooke MD [address] [place] [phone] [facility] CARDIOVASCULAR DISEASE 02/16/16 09/09/23 Patsy Jordan APRN, TILE PICKER-C [address] [place] [address] [address] [place] [phone] NURSE PRACTITIONER 05/25/20 09/09/23 Keisha Gomez NP [address] [place] [address] NURSE PRACTITIONER 07/11/21 Karyn Stubbs [facility]- [address] [place] [address] Nurse Practitioner NURSE PRACTITIONER ADULT HEALTH 09/10/23 Juventino Torrez MD [address] [place] [address] INTERVENTIONAL CARDIOLOGY 09/10/23 Majo Gold MD [address] [place] [address] Consulting Physician CARDIOVASCULAR DISEASE 11/06/24 documented as of this encounter
--- NOTE | 2024-11-26 13:35 | ED_ITS ---
HPI - Fall General Chief Complaint: Fall Stated Complaint: fall; right eyebrow laceration Time Seen by Provider: 11/26/24 13:20 Source: patient and family Mode of arrival: ambulatory Limitations: no limitations History of Present Illness HPI Narrative: 74-year-old male with a history of hypertension, hypothyroidism, dyslipidemia, CAD status post CABG in 2013, up-to-date on tetanus had an accidental fall 1 hour prior to coming to the ED. He presents with -- 2 cm superficial laceration over the right supraorbital region -- abrasion over the right mosque. -- patient felt lightheaded without any loss of consciousness. -- Right hand pain. No neck pain or restriction of movement. Headache or vomiting. Up-to-date on tetanus. MD complaint: fall Onset (ago): hour(s) ( 1 hour ago) Fall from: standing Fall witnessed: yes, by family Place fall occurred: home Loss of consciousness: none Prolonged down time: no Symptoms prior to fall: none Context: tripped/slipped Location of injury: head Location of injury - extremities: Right: hand Associated symptoms (after fall): denies Related Data Allergies Allergy/AdvReac Type Severity Reaction Status Date / Time gabapentin AdvReac Intermediate vertigo Verified 11/26/24 13:08 Review of Systems 2 Review of Systems: All systems reviewed & are unremarkable except as noted in HPI and below Constitutional: Constitutional: Reports as per HPI and Reports no additional constitutional complaints Eyes: Eyes: Reports as per HPI and Reports no additional eye complaints ENT: Reports system reviewed and no additional complaints, except as documented and Reports as per HPI Cardiovascular: Cardiovascular: Reports as per HPI and Reports no additional cardiovascular complaints Respiratory: Respiratory: Reports as per HPI and Reports no additional respiratory complaints Gastrointestinal: Gastrointestinal: Reports as per HPI and Reports no additional gastrointestinal complaints Genitourinary: Genitourinary: Reports no additional male genitourinary complaints and Reports as per HPI Musculoskeletal: Musculoskeletal: Reports no additional musculoskeletal complaints and Reports as per HPI Integumentary/Breasts: Skin/Breast: Reports system reviewed and no additional complaints, except as docu and Reports as per HPI Comments: right supraorbital laceration measuring 2 cm abrasion right mosque region Neurologic: Reports system reviewed and no additional complaints, except as documented Psychiatric: Psychiatric: Reports no additional psychiatric complaints Endocrine: Endocrine: Reports no additional endocrine complaints Hematologic/Lymphatic: Hematologic/Lymphatic: Reports no additional hematologic/lymphatic complaints Allergic/Immunologic: Allergic/Immunologic: Reports no additional allergic/immunologic complaints PMFSH Past Medical History Medical History Hypothyroidism Dyslipidemia CAD (coronary artery disease) Surgical History Surgical History Hx of CABG Exam 2 Narrative: vital stable Const: General: healthy appearing and no acute distress Nutritional Appearance: well nourished Orientation/consciousness: patient oriented x3 HENMT: Head: normal to inspection Head images: 1. 2 cm laceration the right supraorbital. Ears: external ears normal, TM's normal bilaterally and EAC's normal F nuria/Nose/Sinus: Normal external nose present and Normal nares present Face and sinus: normal facial exam Mouth: Yes Normal oral and palatal mucosa present Throat: posterior oropharynx normal Eyes: Conjunctivae: conjunctivae normal Pupils: Equal, round and reactive pupils present EOM: EOMs intact bilaterally Direct Ophthalmoscopy: no photophobia Neck: Neck: normal visual inspection, no lymphadenopathy and no meningeal signs Chest: Chest palpation & inspection: normal inspection of the chest Resp: Effort & Inspection: normal respiratory effort Auscultation: clear to auscultation bilaterally Cardio: Rate: regular rate Rhythm: regular rhythm GI: Auscultation: normal bowel sounds Other: No tenderness/rigidity /rebound. : General: Yes no CVA tenderness Back/Spine/Pelvis: Back: no CVA tenderness Skin: General skin exam: normal color Rashes: no rashes Wounds: no wounds Neuro: General: patient oriented x3, moves all extremities, no meningeal signs, no focal motor deficits and CN's II-XI intact bilaterally Cranial nerves: Yes Nystagmus not present Speech: normal speech Gait exam (Neuro): Normal gait present Extrem: General: normal to inspection Other: Tenderness over 5th metacarpal on the right side. Psych: Mental Status: mental status grossly normal Affect: normal affect Attitude: cooperative Course Course Emergency Course: Accidental fall 2 cm right supraorbital laceration head injury- CT of the head did not show any acute findings per right hand pain Vital Signs Vital signs: Vital Signs Temperature 33.4 C L 11/26/24 12:57 Pulse Rate 69 11/26/24 12:57 Respiratory Rate 18 11/26/24 12:57 Blood Pressure 147/85 H 11/26/24 12:57 Pulse Oximetry 97 11/26/24 12:57 Oxygen Delivery Room Air 11/26/24 12:57 Temperature 33.4 C L 11/26/24 12:57 Pulse Rate 69 11/26/24 12:57 Respiratory Rate 18 11/26/24 12:57 Blood Pressure 147/85 H 11/26/24 12:57 Pulse Oximetry 97 11/26/24 12:57 Oxygen Delivery Room Air 11/26/24 12:57 Procedures Laceration Laceration 1: Date: 11/26/24 Time: 14:00 Site: face Side (If applicable): right Size (cm): 2 Description: linear ====== Skin Level ====== Skin layer closed with: dermabond ====== Subcutaneous Layer ====== ====== Muscle Layer ====== ====== Tendon Layer ====== MDM - Fall MDM Narrative Medical decision making narrative: accidental fall facial laceration head injury Differential Diagnosis Differential diagnosis: Likely concussion without loss of consciousness Lab Data Attestation: I reviewed the patient's lab results. Discharge Plan Discharge Clinical Impression: Accidental fall Qualifiers: Encounter type: initial encounter Qualified Code(s): W19.XXXA - Unspecified fall, initial encounter Facial laceration Qualifiers: Encounter type: initial encounter Qualified Code(s): S01.81XA - Laceration without foreign body of other part of head, initial encounter Patient Disposition: Home Condition: Stable Instructions: Antibiotic Form, Head Injury (ED) Patient Language: Romanian Follow-up/Referrals: [facility] [Primary Care Provider] - Time of Disposition: 14:20
[2024-11-26 14:31] VITALS: BP 149/68; PULSE 84; RESP 20; O2SAT 97
== END 2024-11-26 14:32 | disposition home or self-care (01) ==
PROVIDERS: Emergency Provider Internal Medicine Critical Care Medicine
DX: S01.81XA Laceration without foreign body of other part of head, initial encounter (principal); I10 Essential (primary) hypertension; E03.9 Hypothyroidism, unspecified; E78.5 Hyperlipidemia, unspecified; I25.10 Atherosclerotic heart disease of native coronary artery without angina pectoris; W19.XXXA Unspecified fall, initial encounter
CPT/HCPCS: 12011; 70450; 99284